=== PATIENT | male | born 1985 | race Caucasian/White ===

== ENCOUNTER 2018-06-08 10:24 | Inpatient (IN) | payer BC ==
[~2018-06-08] VITALS: Ht 182.9 cm; Wt 120.8 kg
[2018-06-08] VITALS (17 sets, daily range): BP systolic 86–144; BP diastolic 60–85
[2018-06-08] MEDS ORDERED: IV NORMAL SALINE 1000ML BAG 1,000 ML IV SCH (10:30)
[2018-06-08] MEDS ORDERED: ADENOSINE 6 MG/2 ML VIAL. IV ONE ×2 (10:31→11:00)
[2018-06-08] MEDS ORDERED: dilTIAZem IV PUSH 25 MG/5 ML VIAL ONE (10:32)
[2018-06-08 10:47] LABS: BASO # 0.1 x10^3/uL (0.0-0.2); BASO % 1 % (0-3); EOS # 0.1 x10^3/uL (0.0-0.7); EOS % 1 % (0-3); HEMATOCRIT 52.8 % (39.0-53.0); HEMOGLOBIN 17.2 g/dL (13.0-17.5); LYMPH # 3.2 x10^3/uL (1.0-4.8); LYMPH % 26 % (24-48); MEAN CORPUSCULAR HEMOGLOBIN 30 pg (25-35); MEAN CORPUSCULAR HGB CONC 33 g/dL (31-37); MEAN CORPUSCULAR VOLUME 91 fL (79-100); MONO # 0.7 x10^3/uL (0.0-1.1); MONO % 6 % (0-9); NEUT # 8.3 x10^3uL (1.8-7.7); NEUT % 67 % (31-73); PLATELET COUNT 221 x10^3/uL (140-400); RED BLOOD COUNT 5.82 x10^6/uL (4.30-5.70); WHITE BLOOD COUNT 12.4 x10^3/uL (4.0-11.0)
--- NOTE | 2018-06-08 10:56 | PHYS DOC ---
Past Medical History Past Medical History: Hypothyroid Additional Past Medical Histor: tachycardia Adult General HPI HPI Patient is a 32-year-old white male who presents to the emergency department for evaluation. He states that for the past several days, he has had waxing waning episodes of palpitations and he finally went to see his PCP today where he was found to have a rapid tachycardia, narrow complex. He was given 50 of metoprolol in the office on a baby aspirin, and sent via EMS to this facility. EMS administered adenosine twice, initially 6, then 12 mg, and they reported " no change". Upon arrival, the patient has no complaints, other than some mild fatigue and palpitations he denies shortness of breath. He did try vagal maneuvers in his doctor's office without success as well. He states he has been having these symptoms on and off for quite a while. He has been on Cardizem, for a "fast heart rate", although he states no formal arrhythmia has been diagnosed. He states he ran out of his Cardizem about a week ago. He has no chest pain. Review of Systems Review of Systems Constitutional: Denies fever or chills [] Eyes: Denies change in visual acuity, redness, or eye pain [] HENT: Denies nasal congestion or sore throat [] Respiratory: Denies cough or shortness of breath [] Cardiovascular: No additional information not addressed in HPI [] GI: Denies abdominal pain, nausea, vomiting, bloody stools or diarrhea [] : Denies dysuria or hematuria [] Musculoskeletal: Denies back pain or joint pain [] Integument: Denies rash or skin lesions [] Neurologic: Denies headache, focal weakness or sensory changes [] Endocrine: Denies polyuria or polydipsia [] All other systems were reviewed and found to be within normal limits, except as documented in this note. Current Medications Current Medications Current Medications Medications (Trade) Dose Ordered Sig/Yunior Start Time Stop Time Status Last Admin Dose Admin Adenosine (Adenocard) 12 mg 1X ONCE 06/08/18 11:00 06/08/18 11:03 DC 06/08/18 10:36 12 MG Diltiazem HCl (Cardizem Iv Push) 25 mg 1X ONCE 06/08/18 11:00 06/08/18 11:03 DC 06/08/18 10:39 25 MG Diltiazem HCl 125 mg/Dextrose 125 ml @ 5 mls/hr CONT PRN 06/08/18 11:00 06/08/18 11:21 10 MLS/HR Sodium Chloride 1,000 ml @ 1,000 mls/hr Q1H 06/08/18 10:30 06/08/18 11:29 DC 06/08/18 10:35 1,000 MLS/HR Allergies Allergies Allergies Coded Allergies Type Severity Reaction Last Updated Verified cefaclor Allergy Intermediate 06/08/18 Yes Physical Exam Physical Exam PHYSICAL EXAM: CONSTITUTIONAL: Well developed, well nourished HEAD: normocephalic, atraumatic EENT: PERRL, EOMI. Conjunctivae normal color, sclerae non-icteric; moist mucous membranes. NECK: Supple, non-tender; no meningismus. LUNGS: Lungs CTA, breathing even and unlabored. Normal air movement. HEART: Regular tachycardia, no murmur CHEST: No deformity; non-tender ABDOMEN: The abdomen is soft, and non-tender, no masses or bruits. EXTREM: Normal ROM; no deformity, no calf tenderness. Normal pulses palpable in all extremities. There is no pedal edema. SKIN: No rash; no diaphoresis NEURO: Alert; normal speech and cognition; CN's grossly intact; strength grossly intact without focal deficit. BACK: No CVA TTP. Current Patient Data Vital Signs Vital Signs Date Time Temp Pulse Resp B/P (MAP) Pulse Ox O2 Delivery O2 Flow Rate FiO2 06/08/18 11:58 110 124/69 (87) 95 Nasal Cannula 3.0 06/08/18 10:24 98.3 20 98.3 Lab Values Laboratory Tests Test 06/08/18 10:35 White Blood Count 12.4 x10^3/uL (4.0-11.0) H Red Blood Count 5.82 x10^6/uL (4.30-5.70) H Hemoglobin 17.2 g/dL (13.0-17.5) Hematocrit 52.8 % (39.0-53.0) Mean Corpuscular Volume 91 fL (79-100) Mean Corpuscular Hemoglobin 30 pg (25-35) Mean Corpuscular Hemoglobin Concent 33 g/dL (31-37) Red Cell Distribution Width 16.0 % (11.5-14.5) H Platelet Count 221 x10^3/uL (140-400) Neutrophils (%) (Auto) 67 % (31-73) Lymphocytes (%) (Auto) 26 % (24-48) Monocytes (%) (Auto) 6 % (0-9) Eosinophils (%) (Auto) 1 % (0-3) Basophils (%) (Auto) 1 % (0-3) Neutrophils # (Auto) 8.3 x10^3uL (1.8-7.7) H Lymphocytes # (Auto) 3.2 x10^3/uL (1.0-4.8) Monocytes # (Auto) 0.7 x10^3/uL (0.0-1.1) Eosinophils # (Auto) 0.1 x10^3/uL (0.0-0.7) Basophils # (Auto) 0.1 x10^3/uL (0.0-0.2) Sodium Level 141 mmol/L (136-145) Potassium Level 4.1 mmol/L (3.5-5.1) Chloride Level 103 mmol/L (98-107) Carbon Dioxide Level 23 mmol/L (21-32) Anion Gap 15 (6-14) H Blood Urea Nitrogen 16 mg/dL (8-26) Creatinine 1.1 mg/dL (0.7-1.3) Estimated GFR (Cockcroft-Gault) 78.1 BUN/Creatinine Ratio 15 (6-20) Glucose Level 103 mg/dL (70-99) H Calcium Level 9.0 mg/dL (8.5-10.1) Magnesium Level 2.3 mg/dL (1.8-2.4) Total Bilirubin 0.9 mg/dL (0.2-1.0) Aspartate Amino Transferase (AST) 31 U/L (15-37) Alanine Aminotransferase (ALT) 60 U/L (16-63) Alkaline Phosphatase 76 U/L (46-116) Troponin I Quantitative 0.025 ng/mL (0.000-0.055) Total Protein 7.0 g/dL (6.4-8.2) Albumin 4.1 g/dL (3.4-5.0) Albumin/Globulin Ratio 1.4 (1.0-1.7) Thyroid Stimulating Hormone (TSH) 9.228 uIU/mL (0.358-3.74) H Free Thyroxine 1.37 ng/dL (0.76-1.46) Laboratory Tests 06/08/18 10:35 Laboratory Tests 06/08/18 10:35 EKG EKG Initial EKG shows lots likely SVT, with a retrograde P-wave, at a rate of 197 beats for minute, normal axis, normal intervals, nonspecific ST/T changes. The patient was given adenosine, 12 mg, which did slow the patient's rate transiently, and it did appear to be P waves present at a rate of about 140 bpm , when the rhythm slowed, but the patient accelerated back to the underlying rhythm soon after. He was given Cardizem bolus, which then slowed his heart rate to about 99 bpm, where he apparently had an accessory P-wave, right after the QRS, redness and the possibility of either slow a flutter or a chill tachycardia is likely diagnoses.[] Repeat EKG, done at 1047, shows probable atrial flutter, at a ventricular rate of 90 beats for minute, normal axis, normal intervals, left ventricular hypertrophy pattern with nonspecific ST/T changes present. Radiology/Procedures Radiology/Procedures [] Course & Med Decision Making Course & Med Decision Making Pertinent Labs and Imaging studies reviewed. (See chart for details) []CRITICAL CARE TIME: 45 Minutes, excluding any procedures and care of other patients. The patient's condition has improved, on Cardizem drip. He appears to have atrial tachycardia, I spoke with cardiology, and the patient will be admitted to the hospitalist service. Dragon Disclaimer Dragon Disclaimer This electronic medical record was generated, in whole or in part, using a voice recognition dictation system. Departure Departure Impression: Primary Impression: Atrial tachycardia Disposition: ADMITTED INPATIENT Admitting Physician: Sam Plummer Condition: STABLE CALEB LEONARDO MD Jun 08, 2018 10:56
[2018-06-08] MEDS ORDERED: dilTIAZem IV PUSH 25 MG/5 ML VIAL IVP ONE (11:00)
[2018-06-08 11:06] LABS: CREATININE 1.1 mg/dL (0.7-1.3); GFR 78.1; POTASSIUM 4.1 mmol/L (3.5-5.1)
[2018-06-08 11:13] LABS: ALBUMIN 4.1 g/dL (3.4-5.0); ALBUMIN/GLOBULIN RATIO 1.4 (1.0-1.7); MAGNESIUM 2.3 mg/dL (1.8-2.4); TOTAL BILIRUBIN 0.9 mg/dL (0.2-1.0)
[2018-06-08 11:20] LABS: FREE T4 1.37 ng/dL (0.76-1.46); THYROID STIM HORMONE (TSH) 9.228 uIU/mL (0.358-3.74)
[2018-06-08] MEDS: dilTIAZem INJ 125 MG in IV DEXTROSE 5% 100ML 100 ML IV PRN (11:21)
--- NOTE | 2018-06-08 12:13 | PDOC2 ---
MARTA WILDER SALES SERVICE PROFESSIONAL 06/08/18 1213: CARDIAC CONSULT DATE OF CONSULT Date of Consult DATE: 06/08/18 TIME: 12:10 REASON FOR CONSULT Reason for Consult: AT REFERRING PHYSICIAN Referring Physician: Sarath SOURCE Source: Chart review, Patient HISTORY OF PRESENT ILLNESS HISTORY OF PRESENT ILLNESS This is a pleasant 32 yo male admitted for complains of fast HR. Reports that 1.5 yrs ago he was noted with irregular HR as well as high BP. He was then placed on cardizem and was told that he needs to see a marketing technology specialist but decided not to go. He then ran out of cardizem about a week and half ago. Last weekend he started having watery diarrhea having this about 3x a day. Tuesday he started feeling palpiations and was a little SOA. No nausea or vomiting. His symptoms continued intermittently. He then went to his PCP and noted his HR was fast and vagal maneuver was done and ineffective as well as metoprolol. In ED he was given x2 of adenosis as his HR was noted in the 190s and finally the cardizem worked. No recent VTE, syncope, or any known history of definitive arrhythmias nor childhood congenital heart disease. No falls or any recent injury. PAST MEDICAL HISTORY Cardiovascular: HTN, Other (palpitations) Pulmonary: Asthma CENTRAL NERVOUS SYSTEM: Other (No pertinent history) GI: No pertinent hx Heme/Onc: No pertinent hx Psych: No pertinent hx Musculoskeletal: Other (None) ENT: Allergic Rhinitis Renal/: No pertinent hx Endocrine: Hypothyroidism, Other (hypglycemia) Dermatology: No pertinent hx PAST SURGICAL HISTORY Past Surgical History: No pertinent history FAMILY HISTORY Family History no pertinent history SOCIAL HISTORY Smoke: <1 pack per day ALCOHOL: occassional Drugs: None Lives: Alone CURRENT MEDICATIONS CURRENT MEDICATIONS Current Medications Medications (Trade) Dose Ordered Sig/Yunior Route PRN Reason Start Time Stop Time Status Last Admin Dose Admin Adenosine (Adenocard) 12 mg 1X ONCE IV 06/08/18 11:00 06/08/18 11:03 DC 06/08/18 10:36 Sodium Chloride 1,000 ml @ 1,000 mls/hr Q1H IV 06/08/18 10:30 06/08/18 11:29 DC 06/08/18 10:35 Diltiazem HCl (Cardizem Iv Push) 25 mg 1X ONCE IVP 06/08/18 11:00 06/08/18 11:03 DC 06/08/18 10:39 Diltiazem HCl 125 mg/Dextrose 125 ml @ 5 mls/hr CONT PRN IV SEE I/O RECORD 06/08/18 11:00 06/08/18 11:21 ALLERGIES ALLERGIES: Coded Allergies: cefaclor (Verified Allergy, Intermediate, 06/08/18) ROS Review of System 14 point ROS evaluated with pertinent positives noted per HPI PHYSICAL EXAM General: Alert, Oriented X3, Cooperative, No acute distress HEENT: Atraumatic, Mucous membr. moist/pink Lungs: Clear to auscultation, Normal air movement Heart: Regular rate (atrial tach), Normal S1, Normal S2, No murmurs Abdomen: Soft, No tenderness Extremities: No cyanosis, No edema Skin: No breakdown, No significant lesion Neuro: Normal speech, Sensation intact Psych/Mental Status: Mental status NL, Mood NL MUSCULOSKELETAL: Full range of motion without pain VITALS VITALS Vital Signs Date Time Temp Pulse Resp B/P (MAP) Pulse Ox O2 Delivery O2 Flow Rate FiO2 06/08/18 10:39 202 136/81 06/08/18 10:24 98.3 20 98 Nasal Cannula 3.0 98.3 LABS Lab: Laboratory Tests Test 06/08/18 10:35 White Blood Count 12.4 x10^3/uL (4.0-11.0) Red Blood Count 5.82 x10^6/uL (4.30-5.70) Hemoglobin 17.2 g/dL (13.0-17.5) Hematocrit 52.8 % (39.0-53.0) Mean Corpuscular Volume 91 fL (79-100) Mean Corpuscular Hemoglobin 30 pg (25-35) Mean Corpuscular Hemoglobin Concent 33 g/dL (31-37) Red Cell Distribution Width 16.0 % (11.5-14.5) Platelet Count 221 x10^3/uL (140-400) Neutrophils (%) (Auto) 67 % (31-73) Lymphocytes (%) (Auto) 26 % (24-48) Monocytes (%) (Auto) 6 % (0-9) Eosinophils (%) (Auto) 1 % (0-3) Basophils (%) (Auto) 1 % (0-3) Neutrophils # (Auto) 8.3 x10^3uL (1.8-7.7) Lymphocytes # (Auto) 3.2 x10^3/uL (1.0-4.8) Monocytes # (Auto) 0.7 x10^3/uL (0.0-1.1) Eosinophils # (Auto) 0.1 x10^3/uL (0.0-0.7) Basophils # (Auto) 0.1 x10^3/uL (0.0-0.2) Sodium Level 141 mmol/L (136-145) Potassium Level 4.1 mmol/L (3.5-5.1) Chloride Level 103 mmol/L (98-107) Carbon Dioxide Level 23 mmol/L (21-32) Anion Gap 15 (6-14) Blood Urea Nitrogen 16 mg/dL (8-26) Creatinine 1.1 mg/dL (0.7-1.3) Estimated GFR (Cockcroft-Gault) 78.1 BUN/Creatinine Ratio 15 (6-20) Glucose Level 103 mg/dL (70-99) Calcium Level 9.0 mg/dL (8.5-10.1) Magnesium Level 2.3 mg/dL (1.8-2.4) Total Bilirubin 0.9 mg/dL (0.2-1.0) Aspartate Amino Transf (AST/SGOT) 31 U/L (15-37) Alanine Aminotransferase (ALT/SGPT) 60 U/L (16-63) Alkaline Phosphatase 76 U/L (46-116) Troponin I Quantitative 0.025 ng/mL (0.000-0.055) Total Protein 7.0 g/dL (6.4-8.2) Albumin 4.1 g/dL (3.4-5.0) Albumin/Globulin Ratio 1.4 (1.0-1.7) Thyroid Stimulating Hormone (TSH) 9.228 uIU/mL (0.358-3.74) Free Thyroxine 1.37 ng/dL (0.76-1.46) ASSESSMENT/PLAN ASSESSMENT/PLAN 1. Palpitations: atrial tach. #3,4 and 5 likely contributed to suppressed arrhythmia 2. Obesity 3. Hypothyroidism: TSH 9. Due to timing. Does not take med in empty stomach 4. diarrhea: per PCP 5. Noncompliance: missed cardizem dose for 1.5 weeks 6. Tobaccoism Recommendations TTE continue cardizem drip and will transition to PO EP referral Smoking cessation SKYLER LESTER MD 06/09/18 0917: CARDIAC CONSULT ASSESSMENT/PLAN ASSESSMENT/PLAN Patient seen and examined 06/08/18. Agree with ROUNDING MACHINE OPERATOR's assessment and plan. Patient presented with SVT that did not respond to adenosine Presently with atrial tachycardia after starting Cardizem drip Check 2-D echo to assess LV systolic function Plan for initiating anticoagulation prior to discharge Outpatient referral to EP service for possible ablation therapy Thank you for your consultation MARTA WILDER APRN Jun 08, 2018 12:13 SKYLER LESTER MD Jun 09, 2018 09:17
--- NOTE | 2018-06-08 12:36 | EKG ---
[facility] [address] [place] [address] Test Date: 2018-06-08 Test Time: 10:46:58 Pat Name: KRISTY RECINOS Department: Room: Gender: M It Architecture Analyst: : 1985 Requested By: CALEB LEONARDO Order Number: [id number] Reading MD: Law Dawson MD Measurements Intervals [place] Rate: 99 P: [place]: QRS: 1 QRSD: 112 T: 171 QT: 352 QTc: 451 Interpretive Statements SR IVCD NON-SPECIFIC J POINT ELEVATION, LATERAL ST SEGMENT DEPRESSION Electronically Signed On 06-15-2018 13:46:47 CDT by Law Dawson MD
--- NOTE | 2018-06-08 12:36 | EKG ---
[facility] [address] [place] [address] Test Date: 2018-06-08 Test Time: 10:31:59 Pat Name: KRISTY RECINOS Department: Room: Gender: M Sales Executive Insurance: : 1985 Requested By: CALEB LEONARDO Order Number: [id number] Reading MD: Law Dawson MD Measurements Intervals [place] Rate: 197 P: [place]: QRS: 2 QRSD: 106 T: 124 QT: 272 QTc: 495 Interpretive Statements SUPRAVENTRICULAR TACHYCARDIA Electronically Signed On 06-15-2018 13:46:16 CDT by Law Dawson MD
--- NOTE | 2018-06-08 13:06 | PDOC1 ---
History and Physical Date of Admission Date of Admission DATE: 06/08/18 TIME: 13:06 Identification/Chief Complaint Chief Complaint SEEN IN ER PCP today where he was found to have a rapid tachycardia, narrow complex. He was given 50 of metoprolol in the office on a baby aspirin, and sent via EMS HERE EMS administered adenosine twice, initially 6, then 12 mg, HAD BEEN TAKING CARDIZEM, was recently stopped, denies excess caffeine intake/ etoh/ tobacco tsh elevated with nl t4 free Past Medical History Cardiovascular: HTN Hepatobiliary: No pertinent hx Psych: No pertinent hx Infectious disease: No pertinent hx Renal/: No pertinent hx Endocrine: No pertinent hx Dermatology: No pertinent hx Family History Family History: Hypertension Social History Smoke: No ALCOHOL: rare Drugs: None Current Problem List Problem List Problems Medical Problems: (1) Atrial tachycardia Status: Acute Current Medications Current Medications Current Medications Adenosine (Adenocard) 6 mg STK-MED ONCE IV ; Start 06/08/18 at 10:31; Stop 06/08 at 10:32; Status DC Diltiazem HCl (Cardizem Iv Push) 25 mg STK-MED ONCE .ROUTE ; Start 06/08/18 at 10:32; Stop 06/08/18 at 10:33; Status DC Adenosine (Adenocard) 12 mg 1X ONCE IV Last administered on 06/08/18at 10:36; Start 06/08/18 at 11:00; Stop 06/08/18 at 11:03; Status DC Sodium Chloride 1,000 ml @ 1,000 mls/hr Q1H IV Last administered on 06/08/18at 10:35; Start 06/08/18 at 10:30; Stop 06/08/18 at 11:29; Status DC Diltiazem HCl (Cardizem Iv Push) 25 mg 1X ONCE IVP Last administered on at 10:39; Start 06/08/18 at 11:00; Stop 06/08/18 at 11:03; Status DC Diltiazem HCl 125 mg/Dextrose 125 ml @ 5 mls/hr CONT PRN IV SEE I/O RECORD Last administered on 06/08/18at 11:21; Start 06/08/18 at 11:00 Allergies Allergies: Coded Allergies: cefaclor (Verified Allergy, Intermediate, 06/08/18) ROS Review of System Review of Systems Review of Systems Constitutional: Denies fever or chills [] Eyes: Denies change in visual acuity, redness, or eye pain [] HENT: Denies nasal congestion or sore throat [] Respiratory: Denies cough or shortness of breath [] Cardiovascular: No additional information not addressed in HPI [] GI: Denies abdominal pain, nausea, vomiting, bloody stools or diarrhea [] : Denies dysuria or hematuria [] Musculoskeletal: Denies back pain or joint pain [] Integument: Denies rash or skin lesions [] Neurologic: Denies headache, focal weakness or sensory changes [] Endocrine: Denies polyuria or polydipsia [] 14 pt systems were reviewed and found to be within normal limits, except as documented . General: No: Chills, Night Sweats, Fatigue, Malaise, Appetite, Other PSYCHOLOGICAL ROS: No: Anxiety, Behavioral Disorder, Concentration difficultie , Decreased libido, Depression, Disorientation, Hallucinations, Hostility, Irritablity, Memory difficulties, Mood Swings, Obsessive thoughts, Physical abuse, Sexual abuse, Sleep disturbances, Suicidal ideation, Other Eyes: No Blurry vision, No Decreased vision, No Double vision, No Dry eyes, No Excessive tearing, No Eye Pain, No Itchy Eyes, No Loss of vision, No Photophobia , No Scotomata, No Uses contacts, No Uses glasses, No Other ALLERGY AND IMMUNOLOGY: No: Hives, Insect Bite Sensitivity, Itchy/Watery Eyes, Nasal Congestion, Post Nasal Drip, Seasonal Allergies, Other Hematological and Lymphatic: No: Bleeding Problems, Blood Clots, Blood Transfusions, Brusing, Night Sweats, Pallor, Swollen Lymph Nodes, Other Respiratory: YES: SOB with excertion Cardiovascular: yes Palpitations Genitourinary: No Dysuria, No Frequency, No Incontinence, No Hematuria, No Retention, No Discharge, No Urgency, No Pain, No Flank Pain, No Other, No , No , No , No , No , No , No Musculoskeletal: No Gait Disturbance, No Joint Pain, No Joint Stiffness, No Joint Swelling, No Muscle Pain, No Muscular Weakness, No Pain In:, No Swelling In:, No Other Neurological: No Behavorial Changes, No Bowel/Bladder ControlChng, No Confusion , No Dizziness, No Gait Disturbance, No Headaches, No Impaired Coord/balance, No Memory Loss, No Numbness/Tingling, No Seizures, No Speech Problems, No Tremors, No Visual Changes, No Weakness, No Other Physical Exam Physical Exam Physical Exam Physical Exam PHYSICAL EXAM: CONSTITUTIONAL: Well developed, well nourished, obese HEAD: normocephalic, atraumatic EENT: PERRL, EOMI. Conjunctivae normal color, sclerae non-icteric; moist mucous membranes. NECK: Supple, non-tender; no meningismus. LUNGS: Lungs CTA, breathing even and unlabored. Normal air movement. HEART: Regular tachycardia, no murmur CHEST: No deformity; non-tender ABDOMEN: The abdomen is soft, and non-tender, no masses or bruits. EXTREM: Normal ROM; no deformity, no calf tenderness. Normal pulses palpable in all extremities. There is no pedal edema. SKIN: No rash; no diaphoresis NEURO: Alert; normal speech and cognition; CN's grossly intact; strength grossly intact without focal deficit. General: Alert, Oriented X3, Cooperative HEENT: Atraumatic, PERRLA Lungs: Clear to auscultation Heart: RRR, no murmurs Abdomen: Normal bowel sounds, Soft, Other (obese) Extremities: No cyanosis Skin: No rashes Neuro: Normal speech, Normal tone, Sensation intact, Cranial nerves 3-12 NL Psych/Mental Status: Mental status NL, Mood NL Vitals Vitals Vital Signs Date Time Temp Pulse Resp B/P (MAP) Pulse Ox O2 Delivery O2 Flow Rate FiO2 06/08/18 11:58 110 124/69 (87) 95 Nasal Cannula 3.0 06/08/18 10:24 98.3 20 98.3 Labs Labs Laboratory Tests Test 06/08/18 10:35 White Blood Count 12.4 x10^3/uL (4.0-11.0) Red Blood Count 5.82 x10^6/uL (4.30-5.70) Hemoglobin 17.2 g/dL (13.0-17.5) Hematocrit 52.8 % (39.0-53.0) Mean Corpuscular Volume 91 fL (79-100) Mean Corpuscular Hemoglobin 30 pg (25-35) Mean Corpuscular Hemoglobin Concent 33 g/dL (31-37) Red Cell Distribution Width 16.0 % (11.5-14.5) Platelet Count 221 x10^3/uL (140-400) Neutrophils (%) (Auto) 67 % (31-73) Lymphocytes (%) (Auto) 26 % (24-48) Monocytes (%) (Auto) 6 % (0-9) Eosinophils (%) (Auto) 1 % (0-3) Basophils (%) (Auto) 1 % (0-3) Neutrophils # (Auto) 8.3 x10^3uL (1.8-7.7) Lymphocytes # (Auto) 3.2 x10^3/uL (1.0-4.8) Monocytes # (Auto) 0.7 x10^3/uL (0.0-1.1) Eosinophils # (Auto) 0.1 x10^3/uL (0.0-0.7) Basophils # (Auto) 0.1 x10^3/uL (0.0-0.2) Sodium Level 141 mmol/L (136-145) Potassium Level 4.1 mmol/L (3.5-5.1) Chloride Level 103 mmol/L (98-107) Carbon Dioxide Level 23 mmol/L (21-32) Anion Gap 15 (6-14) Blood Urea Nitrogen 16 mg/dL (8-26) Creatinine 1.1 mg/dL (0.7-1.3) Estimated GFR (Cockcroft-Gault) 78.1 BUN/Creatinine Ratio 15 (6-20) Glucose Level 103 mg/dL (70-99) Calcium Level 9.0 mg/dL (8.5-10.1) Magnesium Level 2.3 mg/dL (1.8-2.4) Total Bilirubin 0.9 mg/dL (0.2-1.0) Aspartate Amino Transf (AST/SGOT) 31 U/L (15-37) Alanine Aminotransferase (ALT/SGPT) 60 U/L (16-63) Alkaline Phosphatase 76 U/L (46-116) Troponin I Quantitative 0.025 ng/mL (0.000-0.055) Total Protein 7.0 g/dL (6.4-8.2) Albumin 4.1 g/dL (3.4-5.0) Albumin/Globulin Ratio 1.4 (1.0-1.7) Thyroid Stimulating Hormone (TSH) 9.228 uIU/mL (0.358-3.74) Free Thyroxine 1.37 ng/dL (0.76-1.46) Laboratory Tests Test 06/08/18 10:35 White Blood Count 12.4 x10^3/uL (4.0-11.0) Red Blood Count 5.82 x10^6/uL (4.30-5.70) Hemoglobin 17.2 g/dL (13.0-17.5) Hematocrit 52.8 % (39.0-53.0) Mean Corpuscular Volume 91 fL (79-100) Mean Corpuscular Hemoglobin 30 pg (25-35) Mean Corpuscular Hemoglobin Concent 33 g/dL (31-37) Red Cell Distribution Width 16.0 % (11.5-14.5) Platelet Count 221 x10^3/uL (140-400) Neutrophils (%) (Auto) 67 % (31-73) Lymphocytes (%) (Auto) 26 % (24-48) Monocytes (%) (Auto) 6 % (0-9) Eosinophils (%) (Auto) 1 % (0-3) Basophils (%) (Auto) 1 % (0-3) Neutrophils # (Auto) 8.3 x10^3uL (1.8-7.7) Lymphocytes # (Auto) 3.2 x10^3/uL (1.0-4.8) Monocytes # (Auto) 0.7 x10^3/uL (0.0-1.1) Eosinophils # (Auto) 0.1 x10^3/uL (0.0-0.7) Basophils # (Auto) 0.1 x10^3/uL (0.0-0.2) Sodium Level 141 mmol/L (136-145) Potassium Level 4.1 mmol/L (3.5-5.1) Chloride Level 103 mmol/L (98-107) Carbon Dioxide Level 23 mmol/L (21-32) Anion Gap 15 (6-14) Blood Urea Nitrogen 16 mg/dL (8-26) Creatinine 1.1 mg/dL (0.7-1.3) Estimated GFR (Cockcroft-Gault) 78.1 BUN/Creatinine Ratio 15 (6-20) Glucose Level 103 mg/dL (70-99) Calcium Level 9.0 mg/dL (8.5-10.1) Magnesium Level 2.3 mg/dL (1.8-2.4) Total Bilirubin 0.9 mg/dL (0.2-1.0) Aspartate Amino Transf (AST/SGOT) 31 U/L (15-37) Alanine Aminotransferase (ALT/SGPT) 60 U/L (16-63) Alkaline Phosphatase 76 U/L (46-116) Troponin I Quantitative 0.025 ng/mL (0.000-0.055) Total Protein 7.0 g/dL (6.4-8.2) Albumin 4.1 g/dL (3.4-5.0) Albumin/Globulin Ratio 1.4 (1.0-1.7) Thyroid Stimulating Hormone (TSH) 9.228 uIU/mL (0.358-3.74) Free Thyroxine 1.37 ng/dL (0.76-1.46) VTE Prophylaxis Ordered VTE Prophylaxis Devices: Yes VTE Pharmacological Prophylaxi: Yes Assessment/Plan Assessment/Plan impression 1. Parxysomal supraventricular tachycardia 2. morbid obesity 3. hx htn 4. possible GILBERT 5. elevated tsh with nl free T4 MAY REFLECT EARLY SUBCLINICAL HYPOTHYROID STATE PLAN ADMIT CVC ECHO T4 IV CARDIZEM CARDIOLOGY CONSULT MAY BENEFIT FROM POLYSOMONOGRAPHY OUTPAT avoid ceffeine THYROID SONO, EVAL OUTPT MAY NEED EP study ODESSA ESTRELLA MD Jun 08, 2018 13:06
[2018-06-08] MEDS ORDERED: FLUT16SP NS (17:12)
[2018-06-08] MEDS ORDERED: LEVO125T5 PO (17:12)
[2018-06-08] MEDS ORDERED: LORA10TA3 PO (17:12)
[2018-06-08] MEDS ORDERED: DILT240C82 PO (17:12)
[2018-06-08] MEDS: ZOLPIDEM 5 MG TABLET. PO PRN ×2 (19:49→21:39)
[2018-06-09] VITALS (17 sets, daily range): BP systolic 105–168; BP diastolic 55–99
--- NOTE | 2018-06-09 00:09 | NUR ---
Pt's resting HR at 2330 has been high 70's for over one hour with cardizem running at 2.5mg/hr. When the patient called in need of a BM, pt was allowed to ambulate to bathroom with his IV pole and with assistance, his HR remained mid 80's during this activity.
[2018-06-09] MEDS: dilTIAZem INJ 125 MG in IV DEXTROSE 5% 100ML 100 ML IV PRN (03:04)
[2018-06-09] MEDS: LEVOTHYROXINE 125 MCG TABLET PO SCH (06:14)
--- NOTE | 2018-06-09 07:46 | CARD ---
MR#: [id number] Date of Study: 06/08/2018 Ordering Physician: MARTA WILDER, Referring Physician: ODESSA ESTRELLA, Tech: Aicha Keenan APPROVED REPORT EXAM: Two-dimensional and M-mode echocardiogram with Doppler and color Doppler. Other Information Quality : GoodHR: 90bpm INDICATION Tachycardia 2D DIMENSIONS RVDd4.2 (2.9-3.5cm)Left Atrium(2D)4.0 (1.6-4.0cm) IVSd1.4 (0.7-1.1cm)Aortic Root(2D)2.6 (2.0-3.7cm) LVDd6.6 (3.9-5.9cm)LVOT Diameter2.3 (1.8-2.4cm) PWd1.2 (0.7-1.1cm)LVDs6.0 (2.5-4.0cm) FS (%) 8.7 %SV41.4 ml LVEF(%)18.7 (>50%) Aortic Valve AoV Peak Marcio.55.4cm/sAoV VTI12.7cm AO Peak GR.1.2mmHgLVOT VTI 5.16cm AO Mean GR.2mmHg Mitral Valve MV E Vuqaqbke81.4cm/sMV E Peak Gr.50mmHg MV DECEL [id number] A Xccrfjnc55.6cm/s E/A Ratio1.3 Tricuspid Valve TR P. Krmzauxd196xp/sRAP [id number] TR Peak Gr.12bmVbTFHV79maPk LEFT VENTRICLE The Left Ventricle is mildly dilated. There is mild to moderate concentric left ventricular hypertrop hy. The left ventricular systolic function is severely impaired. The Ejection Fraction is 10-15%. The re is global hypokinesis of the left ventricle. RIGHT VENTRICLE The right ventricle is mildly dilated. Systolic function is mildly reduced. ATRIA The left atrium is mildly dilated. The right atrium size is normal. The interatrial septum is intact with no evidence for an atrial septal defect or patent foramen ovale as noted on 2-D or Doppler imagi ng. AORTIC VALVE The aortic valve is normal in structure and function. Doppler and Color Flow revealed no significant aortic regurgitation. There is no significant aortic valvular stenosis. MITRAL VALVE The mitral valve is normal in structure and function. There is no evidence of mitral valve prolapse. There is no mitral valve stenosis. Doppler and Color-flow revealed trace mitral regurgitation. TRICUSPID VALVE The tricuspid valve is normal in structure and function. Doppler and Color Flow revealed trace tricus pid regurgitation with an estimated PAP of 24 mmHg. There is no tricuspid valve stenosis. PULMONIC VALVE The pulmonary valve is normal in structure and function. Doppler and Color Flow revealed trace pulmon ic valvular regurgitation. GREAT VESSELS The aortic root is normal in size. The IVC is normal in size and collapses >50% with inspiration. PERICARDIAL EFFUSION There is moderate left pleural effusion. There is no evidence of significant pericardial effusion. Critical Notification Physician Notified Date: 06/08/2018 Time: 19:46 Critical Value: Yes <Conclusion> The left ventricular systolic function is severely impaired. The Ejection Fraction is 10-15%. Trace mitral regurgitation. Trace tricuspid regurgitation with an estimated PAP of 24 mmHg. There is no evidence of significant pericardial effusion. Signed by : Daniel Larson, Electronically Approved : 06/09/2018 07:46:13
[2018-06-09] MEDS: CETIRIZINE HCL 10 MG TABLET. PO SCH (09:00)
[2018-06-09] MEDS: FLUTICASONE 50MCG/NASAL SPRAY 16GM BOTTLE. NS SCH (09:00)
--- NOTE | 2018-06-09 10:22 | PDOC ---
PROGRESS NOTES History of Present Illness History of Present Illness Assessment/Plan Assessment/Plan impression 1. Parxysomal supraventricular tachycardia 2. morbid obesity 3. hx htn 4. possible GILBERT 5. elevated tsh with nl free T4 MAY REFLECT EARLY SUBCLINICAL HYPOTHYROID STATE 6. elevated d-dimer R/O PE 06/09 PT BECAME MORE soa/ FLUSHED THIS am D/W HOPE SALEH , d-dimer drawn, high will do stat CT PE PROTOCOL, START HEPARIN DRIP PENDING RESULT STATES he has not felt well with fatigue since this Tuesday The left ventricular systolic function is severely impaired. The Ejection Fraction is 10-15%. Trace mitral regurgitation. Trace tricuspid regurgitation with an estimated PAP of 24 mmHg. There is no evidence of significant pericardial effusion. Signed by : Daniel Larson, Electronically Approved : 06/09/2018 07:46:13 PLAN monitor CVC ECHO T4 IV CARDIZEM CARDIOLOGY following MAY BENEFIT FROM POLYSOMONOGRAPHY OUT-PAT avoid ceffeine THYROID SONO, EVAL OUTPT PE PROTOCOL STAT 06/09, HEPARIN PROTOCOL MAY NEED EP study COMPLEX MEDICAL DECISION MAKING PER MY CHART REVIEW Vitals Vitals Vital Signs Date Time Temp Pulse Resp B/P (MAP) Pulse Ox O2 Delivery O2 Flow Rate FiO2 06/09/18 08:00 Nasal Cannula 2.0 06/09/18 07:05 97.6 82 18 115/78 (90) 97 97.6 Physical Exam General: Alert, Oriented X3, Cooperative, No acute distress Heart: Regular rate (atrial tach), Normal S1, Normal S2, No murmurs Abdomen: Soft, No tenderness Extremities: No cyanosis, No edema Skin: No breakdown, No significant lesion Labs LABS Laboratory Tests Test 06/08/18 10:35 06/08/18 19:30 06/08/18 20:41 06/09/18 03:00 White Blood Count 12.4 x10^3/uL (4.0-11.0) Red Blood Count 5.82 x10^6/uL (4.30-5.70) Hemoglobin 17.2 g/dL (13.0-17.5) Hematocrit 52.8 % (39.0-53.0) Mean Corpuscular Volume 91 fL (79-100) Mean Corpuscular Hemoglobin 30 pg (25-35) Mean Corpuscular Hemoglobin Concent 33 g/dL (31-37) Red Cell Distribution Width 16.0 % (11.5-14.5) Platelet Count 221 x10^3/uL (140-400) Neutrophils (%) (Auto) 67 % (31-73) Lymphocytes (%) (Auto) 26 % (24-48) Monocytes (%) (Auto) 6 % (0-9) Eosinophils (%) (Auto) 1 % (0-3) Basophils (%) (Auto) 1 % (0-3) Neutrophils # (Auto) 8.3 x10^3uL (1.8-7.7) Lymphocytes # (Auto) 3.2 x10^3/uL (1.0-4.8) Monocytes # (Auto) 0.7 x10^3/uL (0.0-1.1) Eosinophils # (Auto) 0.1 x10^3/uL (0.0-0.7) Basophils # (Auto) 0.1 x10^3/uL (0.0-0.2) Sodium Level 141 mmol/L (136-145) Potassium Level 4.1 mmol/L (3.5-5.1) Chloride Level 103 mmol/L (98-107) Carbon Dioxide Level 23 mmol/L (21-32) Anion Gap 15 (6-14) Blood Urea Nitrogen 16 mg/dL (8-26) Creatinine 1.1 mg/dL (0.7-1.3) Estimated GFR (Cockcroft-Gault) 78.1 BUN/Creatinine Ratio 15 (6-20) Glucose Level 103 mg/dL (70-99) Calcium Level 9.0 mg/dL (8.5-10.1) Magnesium Level 2.3 mg/dL (1.8-2.4) Total Bilirubin 0.9 mg/dL (0.2-1.0) Aspartate Amino Transf (AST/SGOT) 31 U/L (15-37) Alanine Aminotransferase (ALT/SGPT) 60 U/L (16-63) Alkaline Phosphatase 76 U/L (46-116) Troponin I Quantitative 0.025 ng/mL (0.000-0.055) 0.038 ng/mL (0.000-0.055) 0.039 ng/mL (0.000-0.055) Total Protein 7.0 g/dL (6.4-8.2) Albumin 4.1 g/dL (3.4-5.0) Albumin/Globulin Ratio 1.4 (1.0-1.7) Thyroid Stimulating Hormone (TSH) 9.228 uIU/mL (0.358-3.74) Free Thyroxine 1.37 ng/dL (0.76-1.46) D-Dimer (Sherly) 2.98 ug/mlFEU (0.00-0.50) Glucose (Fingerstick) 147 mg/dL (70-99) Assessment and Plan Assessmemt and Plan Problems Medical Problems: (1) Atrial tachycardia Status: Acute Comment Review of Relevant I have reviewed the following items [place] (where applicable) has been applied. Labs Laboratory Tests Test 06/08/18 10:35 06/08/18 19:30 06/08/18 20:41 06/09/18 03:00 White Blood Count 12.4 x10^3/uL (4.0-11.0) Red Blood Count 5.82 x10^6/uL (4.30-5.70) Hemoglobin 17.2 g/dL (13.0-17.5) Hematocrit 52.8 % (39.0-53.0) Mean Corpuscular Volume 91 fL (79-100) Mean Corpuscular Hemoglobin 30 pg (25-35) Mean Corpuscular Hemoglobin Concent 33 g/dL (31-37) Red Cell Distribution Width 16.0 % (11.5-14.5) Platelet Count 221 x10^3/uL (140-400) Neutrophils (%) (Auto) 67 % (31-73) Lymphocytes (%) (Auto) 26 % (24-48) Monocytes (%) (Auto) 6 % (0-9) Eosinophils (%) (Auto) 1 % (0-3) Basophils (%) (Auto) 1 % (0-3) Neutrophils # (Auto) 8.3 x10^3uL (1.8-7.7) Lymphocytes # (Auto) 3.2 x10^3/uL (1.0-4.8) Monocytes # (Auto) 0.7 x10^3/uL (0.0-1.1) Eosinophils # (Auto) 0.1 x10^3/uL (0.0-0.7) Basophils # (Auto) 0.1 x10^3/uL (0.0-0.2) Sodium Level 141 mmol/L (136-145) Potassium Level 4.1 mmol/L (3.5-5.1) Chloride Level 103 mmol/L (98-107) Carbon Dioxide Level 23 mmol/L (21-32) Anion Gap 15 (6-14) Blood Urea Nitrogen 16 mg/dL (8-26) Creatinine 1.1 mg/dL (0.7-1.3) Estimated GFR (Cockcroft-Gault) 78.1 BUN/Creatinine Ratio 15 (6-20) Glucose Level 103 mg/dL (70-99) Calcium Level 9.0 mg/dL (8.5-10.1) Magnesium Level 2.3 mg/dL (1.8-2.4) Total Bilirubin 0.9 mg/dL (0.2-1.0) Aspartate Amino Transf (AST/SGOT) 31 U/L (15-37) Alanine Aminotransferase (ALT/SGPT) 60 U/L (16-63) Alkaline Phosphatase 76 U/L (46-116) Troponin I Quantitative 0.025 ng/mL (0.000-0.055) 0.038 ng/mL (0.000-0.055) 0.039 ng/mL (0.000-0.055) Total Protein 7.0 g/dL (6.4-8.2) Albumin 4.1 g/dL (3.4-5.0) Albumin/Globulin Ratio 1.4 (1.0-1.7) Thyroid Stimulating Hormone (TSH) 9.228 uIU/mL (0.358-3.74) Free Thyroxine 1.37 ng/dL (0.76-1.46) D-Dimer (Sherly) 2.98 ug/mlFEU (0.00-0.50) Glucose (Fingerstick) 147 mg/dL (70-99) Laboratory Tests Test 06/08/18 10:35 06/08/18 19:30 06/08/18 20:41 06/09/18 03:00 White Blood Count 12.4 x10^3/uL (4.0-11.0) Red Blood Count 5.82 x10^6/uL (4.30-5.70) Hemoglobin 17.2 g/dL (13.0-17.5) Hematocrit 52.8 % (39.0-53.0) Mean Corpuscular Volume 91 fL (79-100) Mean Corpuscular Hemoglobin 30 pg (25-35) Mean Corpuscular Hemoglobin Concent 33 g/dL (31-37) Red Cell Distribution Width 16.0 % (11.5-14.5) Platelet Count 221 x10^3/uL (140-400) Neutrophils (%) (Auto) 67 % (31-73) Lymphocytes (%) (Auto) 26 % (24-48) Monocytes (%) (Auto) 6 % (0-9) Eosinophils (%) (Auto) 1 % (0-3) Basophils (%) (Auto) 1 % (0-3) Neutrophils # (Auto) 8.3 x10^3uL (1.8-7.7) Lymphocytes # (Auto) 3.2 x10^3/uL (1.0-4.8) Monocytes # (Auto) 0.7 x10^3/uL (0.0-1.1) Eosinophils # (Auto) 0.1 x10^3/uL (0.0-0.7) Basophils # (Auto) 0.1 x10^3/uL (0.0-0.2) Sodium Level 141 mmol/L (136-145) Potassium Level 4.1 mmol/L (3.5-5.1) Chloride Level 103 mmol/L (98-107) Carbon Dioxide Level 23 mmol/L (21-32) Anion Gap 15 (6-14) Blood Urea Nitrogen 16 mg/dL (8-26) Creatinine 1.1 mg/dL (0.7-1.3) Estimated GFR (Cockcroft-Gault) 78.1 BUN/Creatinine Ratio 15 (6-20) Glucose Level 103 mg/dL (70-99) Calcium Level 9.0 mg/dL (8.5-10.1) Magnesium Level 2.3 mg/dL (1.8-2.4) Total Bilirubin 0.9 mg/dL (0.2-1.0) Aspartate Amino Transf (AST/SGOT) 31 U/L (15-37) Alanine Aminotransferase (ALT/SGPT) 60 U/L (16-63) Alkaline Phosphatase 76 U/L (46-116) Troponin I Quantitative 0.025 ng/mL (0.000-0.055) 0.038 ng/mL (0.000-0.055) 0.039 ng/mL (0.000-0.055) Total Protein 7.0 g/dL (6.4-8.2) Albumin 4.1 g/dL (3.4-5.0) Albumin/Globulin Ratio 1.4 (1.0-1.7) Thyroid Stimulating Hormone (TSH) 9.228 uIU/mL (0.358-3.74) Free Thyroxine 1.37 ng/dL (0.76-1.46) D-Dimer (Sherly) 2.98 ug/mlFEU (0.00-0.50) Glucose (Fingerstick) 147 mg/dL (70-99) Medications Current Medications Adenosine (Adenocard) 6 mg STK-MED ONCE IV ; Start 06/08/18 at 10:31; Stop 06/08 at 10:32; Status DC Diltiazem HCl (Cardizem Iv Push) 25 mg STK-MED ONCE .ROUTE ; Start 06/08/18 at 10:32; Stop 06/08/18 at 10:33; Status DC Adenosine (Adenocard) 12 mg 1X ONCE IV Last administered on 06/08/18at 10:36; Start 06/08/18 at 11:00; Stop 06/08/18 at 11:03; Status DC Sodium Chloride 1,000 ml @ 1,000 mls/hr Q1H IV Last administered on 06/08/18at 10:35; Start 06/08/18 at 10:30; Stop 06/08/18 at 11:29; Status DC Diltiazem HCl (Cardizem Iv Push) 25 mg 1X ONCE IVP Last administered on at 10:39; Start 06/08/18 at 11:00; Stop 06/08/18 at 11:03; Status DC Diltiazem HCl 125 mg/Dextrose 125 ml @ 5 mls/hr CONT PRN IV SEE I/O RECORD Last administered on 06/09/18at 03:04; Start 06/08/18 at 11:00 Fluticasone Propionate (Flonase) 2 spray DAILY NS ; Start 06/09/18 at 09:00 Levothyroxine Sodium (Synthroid) 125 mcg DAILY06 PO Last administered on at 06:14; Start 06/09/18 at 06:00 Cetirizine HCl (ZyrTEC) 10 mg DAILY PO ; Start 06/09/18 at 09:00 Zolpidem Tartrate (Ambien) 5 mg PRN QHS PRN PO INSOMNIA, MAY REPEAT IN 1HR Last administered on 06/08/18at 21:39; Start 06/08/18 at 19:15 Active Scripts Active Reported Loratadine 10 Mg Tablet 1 Tab PO DAILY Diltiazem 24Hr Cd (Diltiazem HCl) 240 Mg Cap.er.24h 240 Mg PO DAILY Levothyroxine Sodium 125 Mcg Tablet 1 Tab PO DAILY Fluticasone Propionate Nasal [place] (Fluticasone Propionate) 16 Gm [place].susp 2 [place] NS DAILY Vitals/I & O Vital Sign - Last 24 Hours 06/08/18 06/08/18 06/08/18 06/08/18 10:24 10:38 10:39 10:41 Temp 98.3 98.3 Pulse 195 202 202 204 Resp 20 B/P (MAP) 115/72 (86) 136/81 Pulse Ox 98 97 97 O2 Delivery Nasal Cannula Nasal Cannula Nasal Cannula O2 Flow Rate 3.0 3.0 3.0 06/08/18 06/08/18 06/08/18 06/08/18 10:42 10:45 10:58 11:28 Pulse 196 196 112 114 B/P (MAP) 136/81 (99) 136/96 (109) 118/78 (91) 132/86 (101) Pulse Ox 97 94 93 97 O2 Delivery Nasal Cannula Nasal Cannula Nasal Cannula Nasal Cannula O2 Flow Rate 3.0 3.0 3.0 3.0 06/08/18 06/08/18 06/08/18 06/08/18 11:58 12:13 12:28 12:58 Pulse 110 55 55 86 Resp 20 22 20 B/P (MAP) 124/69 (87) 91/61 (71) 117/68 (84) 108/67 (81) Pulse Ox 95 O2 Delivery Nasal Cannula Nasal Cannula Nasal Cannula Nasal Cannula O2 Flow Rate 3.0 3.0 3.0 3.0 3/14/19 3/14/19 3/14/19 3/14/19 13:28 13:30 13:30 13:56 Temp 97.8 97.8 Pulse 85 203 94 Resp 20 16 B/P (MAP) 105/81 (89) 144/81 (102) 137/83 (101) Pulse Ox 96 O2 Delivery Nasal Cannula Nasal Cannula Room Air O2 Flow Rate 3.0 2.0 06/08/18 06/08/18 06/08/18 06/08/18 14:00 14:30 15:00 15:30 Pulse 87 86 88 92 B/P (MAP) 119/84 (96) 111/66 (81) 114/85 (95) 111/85 (94) 06/08/18 06/08/18 06/08/18 06/08/18 16:00 16:30 19:30 19:38 Temp 97.6 97.6 Pulse 95 84 93 95 Resp 16 B/P (MAP) 103/60 (74) 121/81 (94) 86/63 (71) 107/74 (85) Pulse Ox 95 O2 Delivery Nasal Cannula O2 Flow Rate 3.0 06/08/18 06/08/18 06/08/18 06/08/18 20:04 20:07 20:37 21:37 Pulse 92 82 91 B/P (MAP) 129/74 (92) 120/81 (94) 113/78 (90) O2 Delivery Nasal Cannula O2 Flow Rate 3.0 06/08/18 06/08/18 06/08/18 06/09/18 22:22 22:37 23:37 00:37 Temp 97.9 97.9 Pulse 90 77 78 84 Resp 22 B/P (MAP) 116/84 (95) 106/67 (80) 114/76 (89) 122/81 (95) Pulse Ox 98 O2 Delivery Nasal Cannula O2 Flow Rate 3.0 06/09/18 06/09/18 06/09/18 06/09/18 01:30 02:43 04:59 05:57 Temp 98.4 98.4 Pulse 82 84 82 86 Resp 20 B/P (MAP) 120/67 (84) 134/72 (92) 112/83 (93) 116/87 (97) Pulse Ox 99 O2 Delivery Nasal Cannula O2 Flow Rate 3.0 06/09/18 06/09/18 07:05 08:00 Temp 97.6 97.6 Pulse 82 Resp 18 B/P (MAP) 115/78 (90) Pulse Ox 97 O2 Delivery Nasal Cannula Nasal Cannula O2 Flow Rate 3.0 2.0 Intake and Output 06/08/18 06/08/18 06/09/18 15:00 23:00 07:00 Intake Total 1000 ml 300 ml 1900 ml Output Total 250 ml Balance 1000 ml 50 ml 1900 ml ODESSA ESTRELLA MD Jun 09, 2018 10:22
[2018-06-09] MEDS ORDERED: HEPARIN for IV BOLUS 10,000 UNIT/10 ML VIAL. IV PRN ×2 (10:30)
[2018-06-09] MEDS ORDERED: HEPARIN 25,000UTS/500ML PREMIX 500 ML IV PRN (10:30)
[2018-06-09] MEDS ORDERED: IOHEXOL 350 MG/ML 100 ML VIAL. IV ONE (10:45)
[2018-06-09] MEDS ORDERED: dilTIAZem INJ 125 MG in IV DEXTROSE 5% 100ML 100 ML IV PRN (10:45)
[2018-06-09] MEDS ORDERED: CONTRAST GIVEN. MC PRN (11:00)
[2018-06-09] MEDS ORDERED: IODIXANOL 320 MG/ML 100 ML VIAL. ONE (11:00)
[2018-06-09] MEDS ORDERED: LIDOCAINE 1% PF 2 ML VIAL. ONE (11:00)
[2018-06-09] MEDS ORDERED: HEPARIN for IV BOLUS 10,000 UNIT/10 ML VIAL. ONE (11:15)
[2018-06-09] MEDS ORDERED: MIDAZOLAM HCL/PF 2 MG/2 ML VIAL. IV ONE (11:15)
[2018-06-09] MEDS ORDERED: NITROGLYCERIN 200 MCG/2 ML SYRINGE FOR CATH/VASC LAB. IART ONE (11:15)
[2018-06-09] MEDS ORDERED: IODIXANOL 320 MG/ML 100 ML VIAL. IART ONE (11:15)
[2018-06-09] MEDS ORDERED: fentaNYL PF VIAL 100 MCG/2 ML VIAL IV ONE (11:15)
[2018-06-09] MEDS ORDERED: MIDAZOLAM HCL/PF 2 MG/2 ML VIAL. ONE (11:15)
[2018-06-09] MEDS ORDERED: fentaNYL PF VIAL 100 MCG/2 ML VIAL ONE (11:15)
[2018-06-09] MEDS ORDERED: VERAPAMIL 5 MG/2 ML VIAL. ONE (11:15)
[2018-06-09] MEDS ORDERED: HEPARIN for IV BOLUS 10,000 UNIT/10 ML VIAL. IART ONE (11:15)
[2018-06-09] MEDS ORDERED: VERAPAMIL 5 MG/2 ML VIAL. IART ONE (11:15)
[2018-06-09] MEDS ORDERED: LIDOCAINE 1% PF 2 ML VIAL. INJ ONE (11:15)
[2018-06-09] MEDS ORDERED: NITROGLYCERIN 200 MCG/2 ML SYRINGE FOR CATH/VASC LAB. ONE (11:15)
--- NOTE | 2018-06-09 11:51 | PDOC ---
MODERATE SEDATION ASSESSMENT RISKS/ALTERNATIVES Risks/Alternatives Risks and alternatives of this type of sedation and procedure discussed with: RISK/ALTERNATIVES: Patient H & P ON CHART H & P H & P on chart and reviewed for co-morbid conditions and appropriate labs. H&P ON CHART: Yes STATUS PREG STATUS ASSESSED: N/A MEDS/ALLERGIES REVIEWED Meds/Allergies Reviewed Medications and Allergies including time and route of recently administered narcotics and sedatives. MEDS/ALLERGIES REVIEWED: Yes ASA RATING ASA RATING: II AIRWAY ASSESSMENT Airway Assessment Airway patency, oral function limitations, presence of caps, crowns, dentures, partials, and ability to extend neck assessed. AIRWAY ASSESSMENT: Yes MALLAMPATI SCORE MALLAMPATI SCORE: II PRE-SEDATION ASSESSMENT PRE-SEDATION ASSESSMENT: Yes SKYLER LESTER MD Jun 09, 2018 11:51
[2018-06-09] MEDS ORDERED: NITROGLYCERIN SUBLINGUAL 0.4 MG BOTTLE OF 25. SL PRN (12:00)
[2018-06-09] MEDS ORDERED: DIGOXIN IV 500 MCG/2 ML AMPUL. IV ONE ×2 (12:00→23:30)
[2018-06-09] MEDS ORDERED: METOPROLOL TART IMMED RELEASE 25 MG TABLET. PO SCH (12:00)
--- NOTE | 2018-06-09 12:02 | CARD ---
MR#: [id number] Date of Study: 06/09/2018 Ordering Physician: SKYLER LARSON, Referring Physician: ODESSA ESTRELLA, Tech: RT Mendoza (R) VARUN APPROVED REPORT Technologist: RT Mendoza (R) VARUN Nurse: Tressa Moore RN Procedure(s) performed: Left heart catheterization and selective coronary angiography via right trans radial approach Moderate sedation: 20 mins INDICATION The indication(s) include : Cardiomyopathy, acute systolic heart failure. CSHA Clinical Frailty Scale CS Clinical Frailty Scale: Very Fit Heart Failure Heart Failure: Yes If Yes, Newly Diagnosed: Yes If Yes, HF Type: Systolic If Yes, NYHA Class: Class II PROCEDURE NARRATIVE After explaining the risks, benefits and alternative options, informed consent was obtained from regina ent. Patient was brought to the cardiac Syrup [facility] and right wrist was prepped and draped in the usual fashion after confirming a positive modified Fausto's test. Arterial access was obtained in the [facility] t radial artery and a 6 Swedish sheath was inserted. 6 Swedish Abner catheter was used to perform leoncio ective angiography of the left and right coronary arteries. LVEDP and transaortic gradients remeasure d. Left ventriculography was not performed since recent 2-D echo showed LVEF 10-15%. Patient tolerate d the procedure well. Hemostasis was achieved using TR band. There were no immediate complications. The following findings were noted. FINDINGS 1. Hemodynamics: Left ventricular end-diastolic pressure of 17 mmHg. No pullback gradient across th e aortic valve. 2. Coronary angiography: a. The left main coronary artery arose from the left sinus of Valsalva, gave rise to the left anteri or descending and left circumflex arteries and did not show any significant stenosis. b. The left anterior descending artery did not show any significant stenosis. c. The left circumflex artery did not show any significant stenosis. d. The right coronary artery was a dominant vessel arising from the right sinus of Valsalva that did not show any significant stenosis. 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 Refer to electrophysiology team for possible ablation of patient's atrial tachycardia. Plan for optimizing medical therapy and repeat 2-D echo in 3 months. Signed by : Skyler Larson, Electronically Approved : 06/09/2018 12:02:25
--- NOTE | 2018-06-09 12:15 | NUR ---
Pt s/p cardiac cath to right radial. Pt back to unit and post procedure protocol discussed. Pt verbalized understanding. VS taken and no issues noted. Will continue to monitor.
--- NOTE | 2018-06-09 13:32 | CONS ---
DATE OF CONSULTATION: PULMONARY CONSULTATION ATTENDING PHYSICIAN: Sam Garcia MD REASON FOR CONSULTATION: Abnormal D-dimer, dyspnea and palpitations. HISTORY OF PRESENT ILLNESS: The patient is a 32-year-old obese male with a BMI of 37. He has minimal history of tobacco use. He has a history of fast heart rate/tachycardia for last 1-1/2 years and also has hypertension, but has never seen a facilities maintenance manager. He recently ran out of his Cardizem about a week and a half ago. The patient came into the hospital with increased palpitations and shortness of breath. He has no chest pains. No headaches, no nausea or vomiting, no diarrhea. No syncopal episode. No congenital heart disease. He was seen in the hospital and his echocardiogram revealed an EF of 10-15%. He was taken to the cardiac catheterization lab and was found to have no significant coronary artery disease. His left ventricle end-diastolic pressure was 17. I have been asked to see him for further evaluation. He has no prior history of thromboembolic disease. No leg pain. PAST MEDICAL HISTORY: Significant for history of hypertension, history of atrial tachycardia for last 1-1/2 years, history of questionable asthma, history of suspected GILBERT, never had formal sleep study; history of hypothyroidism. PAST SURGICAL HISTORY: No recent surgery. ALLERGIES: CEFACLOR. MEDICATIONS: All reviewed as listed in the MRAD. REVIEW OF SYSTEMS: Twelve-point system obtained. Pertinent positives discussed in my history of present illness, otherwise noncontributory. All systems that were negative were reviewed as well. SOCIAL HISTORY: Smoker for about 3 years. PHYSICAL EXAMINATION: GENERAL: He is awake, following commands. VITAL SIGNS: Blood pressure stable, pulse ox 95% on 2 liters. NECK: Supple. LUNGS: Clear. CARDIOVASCULAR: Regular rate and rhythm. ABDOMEN: Soft, nontender. EXTREMITIES: With no pitting edema. LABORATORY DATA: Reviewed. Troponin 0.038. TSH level is 9.2. Sodium 141, potassium 4.1, BUN 16, creatinine 1.1. D-dimer 2.98. IMPRESSION: 1. Dyspnea, likely related to atrial tachycardia. The patient apparently has atrial tachycardia for 1-1/2 years, but never had seen any facilities maintenance manager. He presented with similar symptoms with faster heart rate. His catheterization reveals no significant coronary artery disease, but his ejection fraction is poor at 10-15%. 2. Severe cardiomyopathy, question etiology. 3. Atrial arrhythmias, needs electrophysiologic study. 4. Clinically less likely thromboembolic disease. Elevation in D-dimer is nonspecific, but will rule out thromboembolic disease by doing CTA chest. 5. Highly suspected obstructive sleep apnea. The patient's father reports gasping for air at night. He will benefit from outpatient sleep study. RECOMMENDATIONS: 1. Continue with present oxygen. 2. Obtain baseline chest x-ray. 3. Heparin per protocol per Cardiology. 4. We will obtain CTA chest. 5. Recommend sleep study as an outpatient. 6. Follow Cardiology recommendation. He would benefit from EP study. 7. Discussed with the patient's father and discussed with RN and discussed with Cardiology. LIZBETH SINGH MD DR: RADHA/jeff JOB#: [id number] / [id number] JAVAN
[2018-06-09 14:21] LABS: PROTHROMBIN TIME PATIENT 15.6 SEC (11.7-14.0)
--- NOTE | 2018-06-09 15:00 | NUR ---
Pt continually removing blood pressure cuff during frequent vitals s/p cardiac cath. Pt reminded of post procedural protocol and verbalized understanding, however he stated that it "bothers his arm so bad". Will continue to attempt frequent vital signs.
--- NOTE | 2018-06-09 15:30 | NUR ---
Pt called staff into room to ask questions. Upon arrival to room, patient stated that he removed his IV because "he just couldn't take it anymore". He stated that everytime he moved his arm it was "digging into his skin". Pt educated on the need for IV access. He verbalized understanding but requests that staff wait to place another IV. Will continue to monitor.
[2018-06-09] MEDS ORDERED: METOPROLOL TART IMMED RELEASE 25 MG TABLET. PO ONE (15:45)
--- NOTE | 2018-06-09 15:59 | NUR ---
SS following for discharge planning. SS reviewed pt chart. Pt is from home and currently requiring oxygen. No discharge needs noted at this time. SS will continue to follow for pending discharge needs.
[2018-06-09] MEDS: ANTI-COAG MONITOR BY PHARMACY. MC PRN (16:00)
--- NOTE | 2018-06-09 16:01 | RAD ---
Portable chest, 06/09/2018: HISTORY: Shortness of breath The heart is at the upper limits of normal in size. No pulmonary infiltrate is seen. There is no evidence of pleural fluid. IMPRESSION: 1. Borderline cardiomegaly. 2. No acute infiltrates. Electronically signed by: Driss Krishna MD (06/09/2018 3:57 PM) [facility]
[2018-06-09] MEDS: APIXABAN 5 MG TABLET. PO SCH (18:40)
[2018-06-09] MEDS ORDERED: HYDROcodone/APAP 5/325MG 1 TAB TABLET PO PRN (19:45)
--- NOTE | 2018-06-09 19:59 | PDOC ---
PROGRESS NOTES Subjective Subjective Denied any dyspnea or CP Objective Objective Vital Signs Date Time Temp Pulse Resp B/P (MAP) Pulse Ox O2 Delivery O2 Flow Rate FiO2 06/09/18 17:40 99 Nasal Cannula 2.0 06/09/18 15:51 107 142/89 06/09/18 14:43 97.7 18 97.7 Intake and Output 06/09/18 06:59 Intake Total 3200 ml Output Total 250 ml Balance 2950 ml Intake Oral 2200 ml IV Total 1000 ml Output Urine Total 250 ml # Voids 2 Physical Exam Abdomen: Soft, No tenderness Heart: Regular rate (atrial tach), Normal S1, Normal S2, No murmurs Extremities: No cyanosis, No edema General: Alert, Oriented X3, Cooperative, No acute distress HEENT: Atraumatic, Mucous membr. moist/pink Lungs: Clear to auscultation, Normal air movement MUSCULOSKELETAL: Full range of motion without pain Neuro: Normal speech, Sensation intact Psych/Mental Status: Mental status NL, Mood NL Skin: No breakdown, No significant lesion Assessment Assessment 1. Paroxysmal atrial tachycardia: rate better controlled. Stop CZM infusion and start metoprolol. Add digoxin for better rate control. Start eliquis for AC and plan outpatient EP referral for possible ablation therapy. 2. Cardiomyopathy, acute systolic HF, most probably tachycardia mediated. Better compensated. Cardiac cath did not show any significant CAD. Add lisinopril to med regimen and repeat echo in 3 months DC home tomorrow and follow up as scheduled Plan Plan of Care Problems Medical Problems: (1) Atrial tachycardia Status: Acute Comment Review of Relevant I have reviewed the following items [place] (where applicable) has been applied. Labs Laboratory Tests Test 06/08/18 20:41 06/09/18 03:00 06/09/18 13:50 Glucose (Fingerstick) 147 mg/dL (70-99) Troponin I Quantitative 0.039 ng/mL (0.000-0.055) Prothrombin Time 15.6 SEC (11.7-14.0) Prothromb Time International Ratio 1.3 (0.8-1.1) Activated Partial Thromboplast Time 31 SEC (24-38) Medications Current Medications Acetaminophen/ Hydrocodone Bitart (Lortab 5/325) 1 tab PRN Q4HRS PRN PO PAIN; Start 06/09/18 at 19:45 Apixaban (Eliquis) 5 mg BID PO ; Start 06/09/18 at 21:00; Stop 06/09/18 at 21:00 ; Status DC Apixaban (Eliquis) 10 mg BID PO Last administered on 06/09/18at 18:40; Start at 17:00 Cetirizine HCl (ZyrTEC) 10 mg DAILY PO ; Start 06/09/18 at 09:00 Digoxin (Lanoxin) 125 mcg DAILY PO ; Start 06/10/18 at 09:00 Digoxin (Lanoxin) 500 mcg 1X ONCE IV Last administered on 06/09/18at 14:23; Start 06/09/18 at 12:00; Stop 06/09/18 at 12:01; Status DC Diltiazem HCl 125 mg/Dextrose 125 ml @ 5 mls/hr CONT PRN IV SEE I/O RECORD; Start 06/09/18 at 10:45; Stop 06/09/18 at 11:58; Status DC Fentanyl Citrate (Fentanyl 2ml Vial) 100 mcg 1X ONCE IV Last administered on at 11:15; Start 06/09/18 at 11:15; Stop 06/09/18 at 11:23; Status DC Fentanyl Citrate (Fentanyl 2ml Vial) 100 mcg STK-MED ONCE .ROUTE ; Start at 11:15; Stop 06/09/18 at 11:16; Status DC Fluticasone Propionate (Flonase) 2 spray DAILY NS ; Start 06/09/18 at 09:00 Heparin Sodium (Porcine) (Heparin Sodium) 1,850 unit PRN Q6HRS PRN IV FOR UFH LEVEL 0.2 - 0.29; Start 06/09/18 at 10:30; Stop 06/09/18 at 15:35; Status DC Heparin Sodium (Porcine) (Heparin Sodium) 2,500 unit 1X ONCE IART Last administered on 06/09/18at 11:15; Start 06/09/18 at 11:15; Stop 06/09/18 at 11:23 ; Status DC Heparin Sodium (Porcine) (Heparin Sodium) 3,750 unit PRN Q6HRS PRN IV FOR UFH LEVEL LESS THAN 0.2; Start 06/09/18 at 10:30; Stop 06/09/18 at 15:35; Status DC Heparin Sodium (Porcine) (Heparin Sodium) 10,000 unit STK-MED ONCE .ROUTE ; Start 06/09/18 at 11:15; Stop 06/09/18 at 11:16; Status DC Heparin Sodium/ Dextrose 500 ml @ 0 mls/hr CONT PRN IV SEE I/O RECORD; Start at 10:30; Stop 06/09/18 at 15:34; Status DC Heparin Sodium/ Sodium Chloride 500 ml @ As Directed STK-MED ONCE .ROUTE ; Start 06/09/18 at 11:00; Stop 06/09/18 at 11:01; Status DC Heparin Sodium/ Sodium Chloride (HEPARIN for ARTERIAL LINE FLUSH) 1,000 unit 1X ONCE IART Last administered on 06/09/18at 11:15; Start 06/09/18 at 11:15; Stop 06/09/18 at 11:23; Status DC Info (Anti-Coagulation Monitoring By Pharmacy) 1 each PRN DAILY PRN MC SEE COMMENTS Last administered on 06/09/18at 16:00; Start 06/09/18 at 16:00 Info (CONTRAST GIVEN -- Rx MONITORING) 1 each PRN DAILY PRN MC SEE COMMENTS; Start 06/09/18 at 11:00; Stop 06/11/18 at 10:59 Iodixanol (Visipaque 320) 100 ml 1X ONCE IART Last administered on 06/09/18at 11:15; Start 06/09/18 at 11:15; Stop 06/09/18 at 11:23; Status DC Iodixanol (Visipaque 320) 100 ml STK-MED ONCE .ROUTE ; Start 06/09/18 at 11:00; Stop 06/09/18 at 11:01; Status DC Iohexol (Omnipaque 350 Mg/ml) 100 ml 1X ONCE IV ; Start 06/09/18 at 10:45; Stop 06/09/18 at 10:46; Status DC Levothyroxine Sodium (Synthroid) 125 mcg DAILY06 PO Last administered on at 06:14; Start 06/09/18 at 06:00 Lidocaine HCl (Xylocaine-Mpf 1% 2ml Vial) 2 ml 1X ONCE INJ Last administered on 06/09/18at 11:15; Start 06/09/18 at 11:15; Stop 06/09/18 at 11:23; Status DC Lidocaine HCl (Xylocaine-Mpf 1% 2ml Vial) 2 ml STK-MED ONCE .ROUTE ; Start 06/09 at 11:00; Stop 06/09/18 at 11:01; Status DC Lisinopril (Prinivil) 2.5 mg DAILY PO ; Start 06/10/18 at 09:00 Metoprolol Tartrate (Lopressor) 25 mg 1X ONCE PO Last administered on at 15:51; Start 06/09/18 at 15:45; Stop 06/09/18 at 15:46; Status DC Metoprolol Tartrate (Lopressor) 25 mg BID PO ; Start 06/09/18 at 21:00 Metoprolol Tartrate (Lopressor) 25 mg Q6HRS PO ; Start 06/09/18 at 12:00; Stop 06/09/18 at 12:00; Status DC Midazolam HCl (Versed) 2 mg 1X ONCE IV Last administered on 06/09/18at 11:15; Start 06/09/18 at 11:15; Stop 06/09/18 at 11:23; Status DC Midazolam HCl (Versed) 2 mg STK-MED ONCE .ROUTE ; Start 06/09/18 at 11:15; Stop 06/09/18 at 11:16; Status DC Nitroglycerin (Nitroglycerin) 200 mcg 1X ONCE IART Last administered on at 11:15; Start 06/09/18 at 11:15; Stop 06/09/18 at 11:23; Status DC Nitroglycerin (Nitroglycerin) 200 mcg STK-MED ONCE .ROUTE ; Start 06/09/18 at 11 :15; Stop 06/09/18 at 11:16; Status DC Nitroglycerin (Nitrostat) 0.4 mg PRN Q5MIN PRN SL CHEST PAIN; Start 06/09/18 at 12:00 Verapamil HCl (Verapamil) 2.5 mg 1X ONCE IART Last administered on 06/09/18at 11:15; Start 06/09/18 at 11:15; Stop 06/09/18 at 11:23; Status DC Verapamil HCl (Verapamil) 5 mg STK-MED ONCE .ROUTE ; Start 06/09/18 at 11:15; Stop 06/09/18 at 11:16; Status DC Vitals/I & O Vital Sign - Last 24 Hours 06/08/18 06/08/18 06/08/18 06/08/18 20:04 20:07 20:37 21:37 Pulse 92 82 91 B/P (MAP) 129/74 (92) 120/81 (94) 113/78 (90) O2 Delivery Nasal Cannula O2 Flow Rate 3.0 06/08/18 06/08/18 06/08/18 06/09/18 22:22 22:37 23:37 00:37 Temp 97.9 97.9 Pulse 90 77 78 84 Resp 22 B/P (MAP) 116/84 (95) 106/67 (80) 114/76 (89) 122/81 (95) Pulse Ox 98 O2 Delivery Nasal Cannula O2 Flow Rate 3.0 06/09/18 06/09/18 06/09/18 06/09/18 01:30 02:43 04:59 05:57 Temp 98.4 98.4 Pulse 82 84 82 86 Resp 20 B/P (MAP) 120/67 (84) 134/72 (92) 112/83 (93) 116/87 (97) Pulse Ox 99 O2 Delivery Nasal Cannula O2 Flow Rate 3.0 06/09/18 06/09/18 06/09/18 06/09/18 07:05 08:00 10:42 11:15 Temp 97.6 97.5 97.6 97.5 Pulse 82 49 110 Resp 18 18 B/P (MAP) 115/78 (90) 105/55 (72) Pulse Ox 97 97 O2 Delivery Nasal Cannula Nasal Cannula Nasal Cannula O2 Flow Rate 3.0 2.0 2.0 06/09/18 06/09/18 06/09/18 06/09/18 11:15 11:58 12:15 12:15 Pulse 87 87 51 Resp 22 20 20 B/P (MAP) 140/98 (112) Pulse Ox 95 95 O2 Delivery Nasal Cannula Nasal Cannula O2 Flow Rate 2.0 2.0 06/09/18 06/09/18 06/09/18 06/09/18 12:30 12:45 13:30 14:15 Pulse 51 51 52 49 B/P (MAP) 140/95 (110) 145/92 (109) 152/99 (116) 142/89 (106) 06/09/18 06/09/18 06/09/1815/19 14:23 14:43 15:51 17:40 Temp 97.7 97.7 Pulse 92 50 107 Resp 18 B/P (MAP) 142/89 142/89 (106) 142/89 Pulse Ox 99 99 O2 Delivery Nasal Cannula Nasal Cannula O2 Flow Rate 2.0 2.0 Intake and Output 06/08/18 06/08/18 06/09/18 14:59 22:59 06:59 Intake Total 1000 ml 200 ml 2000 ml Output Total 250 ml Balance 1000 ml -50 ml 2000 ml SKYLER LESTER MD Jun 09, 2018 19:59
[2018-06-09] MEDS: METOPROLOL TART IMMED RELEASE 25 MG TABLET. PO SCH (20:19)
[2018-06-09] MEDS ORDERED: APIXABAN 5 MG TABLET. PO SCH (21:00)
--- NOTE | 2018-06-09 22:44 | NUR ---
At 1900, patient is very anxious, feels "worse than I did yesterday" and "like I might be dying." Pt is complaining of shortness of air that waxes and wanes, but now "I can't breathe." Pt is on 2LNC, SpO2 99%, lungs cta bilaterally. Pt has 5 cm kai knot under skin proximal to IV site that was removed several hours ago and has no current IV access, as pt has requested to wait until morning to start new IV. paged, orders recvd for stat VQ scan and LUE US. Pt tolerated scan well, feels better now at 2230, and has warm pack at L arm. Family at bedside, will continue to monitor.
--- NOTE | 2018-06-09 22:46 | RAD ---
UE VENOUS DUPLEX LEFT, UPPER EXTREMITY Left upper extremity venous duplex was performed using B-mode, color-flow, and spectral Doppler. Indication: Left upper extremity pain. Findings: The Left internal jugular, subclavian, axillary, brachial, basilic, and cephalic veins were assessed for patency. 10 cm occlusive thrombus is seen within the left cephalic vein in the region of the IV access site extending proximal. Otherwise the vessels were found to be compressible and demonstrated phasic, competent to flow with normal augmentation. Impression: 1. 10 cm occlusive thrombus within the left cephalic vein. Electronically signed by: Adebayo Marion MD (06/09/2018 10:43 PM) [facility]
--- NOTE | 2018-06-09 23:26 | RAD ---
Indication: Elevated d-dimer. Dyspnea. Chest pain. TECHNIQUE: Nuclear medicine VQ scan with 14.2 mCi of xenon-133 for ventilation scan and 5.5 mCi of technetium 99m MAA for perfusion scan. COMPARISON: Chest x-ray from same day earlier FINDINGS: Appropriate wash-in and washout is seen on the ventilation scan. Homogeneous distribution is seen of the perfusion agent without ventilation/perfusion mismatch. IMPRESSION: Low probability VQ scan. Electronically signed by: Aleksander Marcelo DO (06/09/2018 11:23 PM) [id number]
[2018-06-09] MEDS ORDERED: METOPROLOL TARTRATE 5 MG/5 ML VIAL. IVP ONE (23:30)
[2018-06-10] MEDS: ZOLPIDEM 5 MG TABLET. PO PRN ×4 (00:20→23:29)
[2018-06-10] MEDS ORDERED: METOPROLOL TARTRATE 5 MG/5 ML VIAL. IVP ONE (00:30)
[2018-06-10 03:30] VITALS: BP 139/84
[2018-06-10] MEDS: LEVOTHYROXINE 125 MCG TABLET PO SCH (06:15)
--- NOTE | 2018-06-10 06:59 | PDOC ---
PULMONARY PROGRESS NOTES Subjective has sob last night vq scan low prob, sob better, no cough, no cp, is tachycardic Vitals Vital Signs Date Time Temp Pulse Resp B/P (MAP) Pulse Ox O2 Delivery O2 Flow Rate FiO2 06/10/18 03:30 99.7 105 22 139/84 (102) 95 Room Air 99.7 06/09/18 21:20 2.0 ROS: No Nausea, No Chest Pain General: Alert HEENT: Other (nc at perrl ) Lungs: Crackles Cardiovascular: Other (tachycardic) Abdomen: Soft, Non-tender Neuro Exam: Alert Extremities: No Edema Skin: Warm Labs Laboratory Tests Test 06/08/18 10:35 06/08/18 19:30 06/08/18 20:41 06/09/18 03:00 White Blood Count 12.4 x10^3/uL (4.0-11.0) Red Blood Count 5.82 x10^6/uL (4.30-5.70) Hemoglobin 17.2 g/dL (13.0-17.5) Hematocrit 52.8 % (39.0-53.0) Mean Corpuscular Volume 91 fL (79-100) Mean Corpuscular Hemoglobin 30 pg (25-35) Mean Corpuscular Hemoglobin Concent 33 g/dL (31-37) Red Cell Distribution Width 16.0 % (11.5-14.5) Platelet Count 221 x10^3/uL (140-400) Neutrophils (%) (Auto) 67 % (31-73) Lymphocytes (%) (Auto) 26 % (24-48) Monocytes (%) (Auto) 6 % (0-9) Eosinophils (%) (Auto) 1 % (0-3) Basophils (%) (Auto) 1 % (0-3) Neutrophils # (Auto) 8.3 x10^3uL (1.8-7.7) Lymphocytes # (Auto) 3.2 x10^3/uL (1.0-4.8) Monocytes # (Auto) 0.7 x10^3/uL (0.0-1.1) Eosinophils # (Auto) 0.1 x10^3/uL (0.0-0.7) Basophils # (Auto) 0.1 x10^3/uL (0.0-0.2) Sodium Level 141 mmol/L (136-145) Potassium Level 4.1 mmol/L (3.5-5.1) Chloride Level 103 mmol/L (98-107) Carbon Dioxide Level 23 mmol/L (21-32) Anion Gap 15 (6-14) Blood Urea Nitrogen 16 mg/dL (8-26) Creatinine 1.1 mg/dL (0.7-1.3) Estimated GFR (Cockcroft-Gault) 78.1 BUN/Creatinine Ratio 15 (6-20) Glucose Level 103 mg/dL (70-99) Calcium Level 9.0 mg/dL (8.5-10.1) Magnesium Level 2.3 mg/dL (1.8-2.4) Total Bilirubin 0.9 mg/dL (0.2-1.0) Aspartate Amino Transf (AST/SGOT) 31 U/L (15-37) Alanine Aminotransferase (ALT/SGPT) 60 U/L (16-63) Alkaline Phosphatase 76 U/L (46-116) Troponin I Quantitative 0.025 ng/mL (0.000-0.055) 0.038 ng/mL (0.000-0.055) 0.039 ng/mL (0.000-0.055) Total Protein 7.0 g/dL (6.4-8.2) Albumin 4.1 g/dL (3.4-5.0) Albumin/Globulin Ratio 1.4 (1.0-1.7) Thyroid Stimulating Hormone (TSH) 9.228 uIU/mL (0.358-3.74) Free Thyroxine 1.37 ng/dL (0.76-1.46) D-Dimer ([place]) 2.98 ug/mlFEU (0.00-0.50) Glucose (Fingerstick) 147 mg/dL (70-99) Test 06/09/18 13:50 Prothrombin Time 15.6 SEC (11.7-14.0) Prothromb Time International Ratio 1.3 (0.8-1.1) Activated Partial Thromboplast Time 31 SEC (24-38) Laboratory Tests Test 06/09/18 13:50 Prothrombin Time 15.6 SEC (11.7-14.0) Prothromb Time International Ratio 1.3 (0.8-1.1) Activated Partial Thromboplast Time 31 SEC (24-38) Medications Active Scripts Medications Dose Route/Sig Max Daily Dose Days Date Category Loratadine 10 Mg Tablet 1 Tab PO DAILY 06/08/18 Reported Diltiazem 24Hr Cd (Diltiazem HCl) 240 Mg Cap.er.24h 240 Mg PO DAILY 06/08/18 Reported Levothyroxine Sodium 125 Mcg Tablet 1 Tab PO DAILY 06/08/18 Reported Fluticasone Propionate Nasal [place] (Fluticasone Propionate) 16 Gm [place].susp 2 [place] NS DAILY 06/08/[address] 1. Moderate bilateral effusions. 2. Mild atelectasis in the lung bases. 3. No definite pulmonary embolus. Impression . IMPRESSION: 1. Dyspnea, likely related to atrial tachycardia. 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 He presented with similar symptoms with faster heart rate. His catheterization reveals no significant coronary artery disease, but his ejection fraction is poor at 10-15%. 2. Severe cardiomyopathy, question etiology. 3. Atrial arrhythmias, needs electrophysiologic study. 4. Elevation in D-dimer is nonspecific, CTA chest, no pe. 5. Highly suspected obstructive sleep apnea. The patient's father reports gasping for air at night. He will benefit from outpatient sleep study. Plan . RECOMMENDATIONS: 1. oxygen titration. 2. cta reviewed, no pe 3. anticoag per Cardiology. 4. quit smoking for ever 5. Recommend sleep study as an outpatient. 6. Follow Cardiology recommendation. ?EP study. discussed w pt and rn CAMERON PLAZA MD Jun 10, 2018 06:59
[2018-06-10 07:20] VITALS: BP 136/81
--- NOTE | 2018-06-10 08:26 | RAD ---
CT arteriogram of the chest. HISTORY: Elevated d-dimer CT arteriogram of the chest was done using 100 mL Omnipaque 350 contrast. Sagittal and coronal MIP images were reconstructed. There is no mediastinal adenopathy. There are moderate bilateral pleural effusions. There is mild atelectasis in the lower lobes. Visualized portions liver and spleen are unremarkable. Adrenal glands are normal. There is respiratory motion artifact in the lung bases which limits evaluation. There is no definite pulmonary embolus. There are no other confluent infiltrates. IMPRESSION: 1. Moderate bilateral effusions. 2. Mild atelectasis in the lung bases. 3. No definite pulmonary embolus. Electronically signed by: Jerrod Leslie MD (06/10/2018 8:24 AM) [facility]
[2018-06-10] MEDS: DIGOXIN 125 MCG TABLET. PO SCH (08:31)
[2018-06-10] MEDS: FLUTICASONE 50MCG/NASAL SPRAY 16GM BOTTLE. NS SCH (08:31)
[2018-06-10] MEDS: CETIRIZINE HCL 10 MG TABLET. PO SCH (08:31)
[2018-06-10] MEDS: METOPROLOL TART IMMED RELEASE 25 MG TABLET. PO SCH ×3 (08:32→18:40)
[2018-06-10] MEDS: LISINOPRIL 5 MG TABLET. PO SCH (08:33)
[2018-06-10] MEDS: APIXABAN 5 MG TABLET. PO SCH ×2 (08:34→20:36)
--- NOTE | 2018-06-10 09:19 | PDOC ---
PROGRESS NOTES History of Present Illness History of Present Illness Assessment/Plan Assessment/Plan impression 1. Parxysomal supraventricular tachycardia 2. morbid obesity 3. hx htn 4. possible GILBERT 5. elevated tsh with nl free T4 MAY REFLECT EARLY SUBCLINICAL HYPOTHYROID STATE 6. elevated d-dimer R/O PE 7. elevated hgb/hct 06/09 PT BECAME MORE soa/ FLUSHED THIS am D/W HOPE SALEH , d-dimer drawn, high will do stat CT PE PROTOCOL, START HEPARIN DRIP PENDING RESULT STATES he has not felt well with fatigue since this Tuesday The left ventricular systolic function is severely impaired. The Ejection Fraction is 10-15%. Trace mitral regurgitation. Trace tricuspid regurgitation with an estimated PAP of 24 mmHg. There is no evidence of significant pericardial effusion. Signed by : Daniel Larson, Electronically Approved : 06/09/2018 07:46:13 06/10 RECURRENT TACHY LAST NIGHT HR 180, METOPROLOL DOSE INC PLANNING BERTIN TUESDAY, BLOOD FOR MARCI-2 mutation erythropoeitin level, heme consuly, pulm consult possible sleep apnea PLAN monitor CVC ECHO REVIEWED T4 free ok tsh high, start synthroid low dose IV CARDIZEM CARDIOLOGY following MAY BENEFIT FROM POLYSOMONOGRAPHY OUT-PAT avoid ceffeine THYROID SONO, EVAL OUTPT PE PROTOCOL STAT 06/09, HEPARIN D/C, ON ELIQUIS MAY NEED EP study COMPLEX MEDICAL DECISION MAKING PER MY CHART REVIEW 52 min > 50% spent in pt care coordination, chart review pt exam Vitals Vitals Vital Signs Date Time Temp Pulse Resp B/P (MAP) Pulse Ox O2 Delivery O2 Flow Rate FiO2 06/10/18 08:33 110 136/81 06/10/18 07:20 97.6 28 98 Room Air 97.6 06/09/18 21:20 2.0 Physical Exam General: Alert, Oriented X3, Cooperative, No acute distress, Other (anxious) Heart: Regular rate (atrial tach), Normal S1, Normal S2, No murmurs Lungs: Clear Abdomen: Normal bowel sounds, Soft, No tenderness Extremities: No cyanosis, No edema Skin: No breakdown, No significant lesion Labs LABS CT arteriogram of the chest. HISTORY: Elevated d-dimer CT arteriogram of the chest was done using 100 mL Omnipaque 350 contrast. Sagittal and coronal MIP images were reconstructed. There is no mediastinal adenopathy. There are moderate bilateral pleural effusions. There is mild atelectasis in the lower lobes. Visualized portions liver and spleen are unremarkable. Adrenal glands are normal. There is respiratory motion artifact in the lung bases which limits evaluation. There is no definite pulmonary embolus. There are no other confluent infiltrates. IMPRESSION: 1. Moderate bilateral effusions. 2. Mild atelectasis in the lung bases. 3. No definite pulmonary embolus. Electronically signed by: Jerrod Leslie MD (06/10/2018 8:24 AM) [facility] DICTATED and SIGNED BY: JERROD LESLIE MD DATE: 06/10/18 0824 Laboratory Tests Test 06/09/18 13:50 Prothrombin Time 15.6 SEC (11.7-14.0) Prothromb Time International Ratio 1.3 (0.8-1.1) Activated Partial Thromboplast Time 31 SEC (24-38) Assessment and Plan Assessmemt and Plan Problems Medical Problems: (1) Atrial tachycardia Status: Acute LEFT VENTRICLE The Left Ventricle is mildly dilated. There is mild to moderate concentric left ventricular hypertrophy. The left ventricular systolic function is severely impaired. The Ejection Fraction is 10-15%. There is global hypokinesis of the left ventricle. RIGHT VENTRICLE The right ventricle is mildly dilated. Systolic function is mildly reduced. ATRIA The left atrium is mildly dilated. The right atrium size is normal. The interatrial septum is intact with no evidence for an atrial septal defect or patent foramen ovale as noted on 2-D or Doppler imaging. AORTIC VALVE The aortic valve is normal in structure and function. Doppler and Color Flow revealed no significant aortic regurgitation. There is no significant aortic valvular stenosis. MITRAL VALVE The mitral valve is normal in structure and function. There is no evidence of mitral valve prolapse. There is no mitral valve stenosis. Doppler and Color- flow revealed trace mitral regurgitation. TRICUSPID VALVE The tricuspid valve is normal in structure and function. Doppler and Color Flow revealed trace tricuspid regurgitation with an estimated PAP of 24 mmHg. There is no tricuspid valve stenosis. PULMONIC VALVE The pulmonary valve is normal in structure and function. Doppler and Color Flow revealed trace pulmonic valvular regurgitation. GREAT VESSELS The aortic root is normal in size. The IVC is normal in size and collapses >50% with inspiration. PERICARDIAL EFFUSION There is moderate left pleural effusion. There is no evidence of significant pericardial effusion. Critical Notification Physician Notified Date: 06/08/2018 Time: 19:46 Critical Value: Yes <Conclusion> The left ventricular systolic function is severely impaired. The Ejection Fraction is 10-15%. Trace mitral regurgitation. Trace tricuspid regurgitation with an estimated PAP of 24 mmHg. There is no evidence of significant pericardial effusion. Signed by : Daniel Larson, Comment Review of Relevant I have reviewed the following items [place] (where applicable) has been applied. Labs Laboratory Tests Test 06/08/18 10:35 06/08/18 19:30 06/08/18 20:41 06/09/18 03:00 White Blood Count 12.4 x10^3/uL (4.0-11.0) Red Blood Count 5.82 x10^6/uL (4.30-5.70) Hemoglobin 17.2 g/dL (13.0-17.5) Hematocrit 52.8 % (39.0-53.0) Mean Corpuscular Volume 91 fL (79-100) Mean Corpuscular Hemoglobin 30 pg (25-35) Mean Corpuscular Hemoglobin Concent 33 g/dL (31-37) Red Cell Distribution Width 16.0 % (11.5-14.5) Platelet Count 221 x10^3/uL (140-400) Neutrophils (%) (Auto) 67 % (31-73) Lymphocytes (%) (Auto) 26 % (24-48) Monocytes (%) (Auto) 6 % (0-9) Eosinophils (%) (Auto) 1 % (0-3) Basophils (%) (Auto) 1 % (0-3) Neutrophils # (Auto) 8.3 x10^3uL (1.8-7.7) Lymphocytes # (Auto) 3.2 x10^3/uL (1.0-4.8) Monocytes # (Auto) 0.7 x10^3/uL (0.0-1.1) Eosinophils # (Auto) 0.1 x10^3/uL (0.0-0.7) Basophils # (Auto) 0.1 x10^3/uL (0.0-0.2) Sodium Level 141 mmol/L (136-145) Potassium Level 4.1 mmol/L (3.5-5.1) Chloride Level 103 mmol/L (98-107) Carbon Dioxide Level 23 mmol/L (21-32) Anion Gap 15 (6-14) Blood Urea Nitrogen 16 mg/dL (8-26) Creatinine 1.1 mg/dL (0.7-1.3) Estimated GFR (Cockcroft-Gault) 78.1 BUN/Creatinine Ratio 15 (6-20) Glucose Level 103 mg/dL (70-99) Calcium Level 9.0 mg/dL (8.5-10.1) Magnesium Level 2.3 mg/dL (1.8-2.4) Total Bilirubin 0.9 mg/dL (0.2-1.0) Aspartate Amino Transf (AST/SGOT) 31 U/L (15-37) Alanine Aminotransferase (ALT/SGPT) 60 U/L (16-63) Alkaline Phosphatase 76 U/L (46-116) Troponin I Quantitative 0.025 ng/mL (0.000-0.055) 0.038 ng/mL (0.000-0.055) 0.039 ng/mL (0.000-0.055) Total Protein 7.0 g/dL (6.4-8.2) Albumin 4.1 g/dL (3.4-5.0) Albumin/Globulin Ratio 1.4 (1.0-1.7) Thyroid Stimulating Hormone (TSH) 9.228 uIU/mL (0.358-3.74) Free Thyroxine 1.37 ng/dL (0.76-1.46) D-Dimer (Sherly) 2.98 ug/mlFEU (0.00-0.50) Glucose (Fingerstick) 147 mg/dL (70-99) Test 06/09/18 13:50 Prothrombin Time 15.6 SEC (11.7-14.0) Prothromb Time International Ratio 1.3 (0.8-1.1) Activated Partial Thromboplast Time 31 SEC (24-38) Laboratory Tests Test 06/09/18 13:50 Prothrombin Time 15.6 SEC (11.7-14.0) Prothromb Time International Ratio 1.3 (0.8-1.1) Activated Partial Thromboplast Time 31 SEC (24-38) Medications Current Medications Adenosine (Adenocard) 6 mg STK-MED ONCE IV ; Start 06/08/18 at 10:31; Stop 06/08 at 10:32; Status DC Diltiazem HCl (Cardizem Iv Push) 25 mg STK-MED ONCE .ROUTE ; Start 06/08/18 at 10:32; Stop 06/08/18 at 10:33; Status DC Adenosine (Adenocard) 12 mg 1X ONCE IV Last administered on 06/08/18at 10:36; Start 06/08/18 at 11:00; Stop 06/08/18 at 11:03; Status DC Sodium Chloride 1,000 ml @ 1,000 mls/hr Q1H IV Last administered on 06/08/18at 10:35; Start 06/08/18 at 10:30; Stop 06/08/18 at 11:29; Status DC Diltiazem HCl (Cardizem Iv Push) 25 mg 1X ONCE IVP Last administered on at 10:39; Start 06/08/18 at 11:00; Stop 06/08/18 at 11:03; Status DC Diltiazem HCl 125 mg/Dextrose 125 ml @ 5 mls/hr CONT PRN IV SEE I/O RECORD Last administered on 06/09/18at 03:04; Start 06/08/18 at 11:00; Stop 06/09/18 at 10:32; Status DC Fluticasone Propionate (Flonase) 2 spray DAILY NS Last administered on at 08:31; Start 06/09/18 at 09:00 Levothyroxine Sodium (Synthroid) 125 mcg DAILY06 PO Last administered on at 06:15; Start 06/09/18 at 06:00 Cetirizine HCl (ZyrTEC) 10 mg DAILY PO Last administered on 06/10/18at 08:31; Start 06/09/18 at 09:00 Zolpidem Tartrate (Ambien) 5 mg PRN QHS PRN PO INSOMNIA, MAY REPEAT IN 1HR Last administered on 06/10/18at 01:26; Start 06/08/18 at 19:15 Metoprolol Tartrate (Lopressor) 25 mg Q6HRS PO ; Start 06/09/18 at 12:00; Stop 06/09/18 at 12:00; Status DC Iohexol (Omnipaque 350 Mg/ml) 100 ml 1X ONCE IV ; Start 06/09/18 at 10:45; Stop 06/09/18 at 10:46; Status DC Heparin Sodium/ Dextrose 500 ml @ 0 mls/hr CONT PRN IV SEE I/O RECORD; Start at 10:30; Stop 06/09/18 at 15:34; Status DC Heparin Sodium (Porcine) (Heparin Sodium) 3,750 unit PRN Q6HRS PRN IV FOR UFH LEVEL LESS THAN 0.2; Start 06/09/18 at 10:30; Stop 06/09/18 at 15:35; Status DC Heparin Sodium (Porcine) (Heparin Sodium) 1,850 unit PRN Q6HRS PRN IV FOR UFH LEVEL 0.2 - 0.29; Start 06/09/18 at 10:30; Stop 06/09/18 at 15:35; Status DC Diltiazem HCl 125 mg/Dextrose 125 ml @ 5 mls/hr CONT PRN IV SEE I/O RECORD; Start 06/09/18 at 10:45; Stop 06/09/18 at 11:58; Status DC Info (CONTRAST GIVEN -- Rx MONITORING) 1 each PRN DAILY PRN MC SEE COMMENTS; Start 06/09/18 at 11:00; Stop 06/11/18 at 10:59 Iodixanol (Visipaque 320) 100 ml STK-MED ONCE .ROUTE ; Start 06/09/18 at 11:00; Stop 06/09/18 at 11:01; Status DC Lidocaine HCl (Xylocaine-Mpf 1% 2ml Vial) 2 ml STK-MED ONCE .ROUTE ; Start 06/09 at 11:00; Stop 06/09/18 at 11:01; Status DC Heparin Sodium/ Sodium Chloride 500 ml @ As Directed STK-MED ONCE .ROUTE ; Start 06/09/18 at 11:00; Stop 06/09/18 at 11:01; Status DC Fentanyl Citrate (Fentanyl 2ml Vial) 100 mcg STK-MED ONCE .ROUTE ; Start at 11:15; Stop 06/09/18 at 11:16; Status DC Midazolam HCl (Versed) 2 mg STK-MED ONCE .ROUTE ; Start 06/09/18 at 11:15; Stop 06/09/18 at 11:16; Status DC Heparin Sodium (Porcine) (Heparin Sodium) 10,000 unit STK-MED ONCE .ROUTE ; Start 06/09/18 at 11:15; Stop 06/09/18 at 11:16; Status DC Verapamil HCl (Verapamil) 5 mg STK-MED ONCE .ROUTE ; Start 06/09/18 at 11:15; Stop 06/09/18 at 11:16; Status DC Nitroglycerin (Nitroglycerin) 200 mcg STK-MED ONCE .ROUTE ; Start 06/09/18 at 11 :15; Stop 06/09/18 at 11:16; Status DC Nitroglycerin (Nitroglycerin) 200 mcg 1X ONCE IART Last administered on at 11:15; Start 06/09/18 at 11:15; Stop 06/09/18 at 11:23; Status DC Verapamil HCl (Verapamil) 2.5 mg 1X ONCE IART Last administered on 06/09/18 11:15; Start 06/09/18 at 11:15; Stop 06/09/18 at 11:23; Status DC Heparin Sodium (Porcine) (Heparin Sodium) 2,500 unit 1X ONCE IART Last administered on 06/09/18 11:15; Start 06/09/18 at 11:15; Stop 06/09/18 at 11:23 ; Status DC Heparin Sodium/ Sodium Chloride (HEPARIN for ARTERIAL LINE FLUSH) 1,000 unit 1X ONCE IART Last administered on 06/09/18 11:15; Start 06/09/18 at 11:15; Stop 06/09/18 at 11:23; Status DC Midazolam HCl (Versed) 2 mg 1X ONCE IV Last administered on 06/09/18 11:15; Start 06/09/18 at 11:15; Stop 06/09/18 at 11:23; Status DC Fentanyl Citrate (Fentanyl 2ml Vial) 100 mcg 1X ONCE IV Last administered on 11:15; Start 06/09/18 at 11:15; Stop 06/09/18 at 11:23; Status DC Iodixanol (Visipaque 320) 100 ml 1X ONCE IART Last administered on 06/09/18 11:15; Start 06/09/18 at 11:15; Stop 06/09/18 at 11:23; Status DC Lidocaine HCl (Xylocaine-Mpf 1% 2ml Vial) 2 ml 1X ONCE INJ Last administered on 06/09/18at 11:15; Start 06/09/18 at 11:15; Stop 06/09/18 at 11:23; Status DC Nitroglycerin (Nitrostat) 0.4 mg PRN Q5MIN PRN SL CHEST PAIN; Start 06/09/18 at 12:00 Metoprolol Tartrate (Lopressor) 25 mg BID PO Last administered on 06/10/18 08: 32; Start 06/09/18 at 21:00 Digoxin (Lanoxin) 500 mcg 1X ONCE IV Last administered on 06/09/18at 14:23; Start 06/09/18 at 12:00; Stop 06/09/18 at 12:01; Status DC Digoxin (Lanoxin) 125 mcg DAILY PO Last administered on 06/10/18 08:31; Start 06/10/18 at 09:00 Lisinopril (Prinivil) 2.5 mg DAILY PO Last administered on 06/10/18 08:33; Start 06/10/18 at 09:00 Apixaban (Eliquis) 5 mg BID PO ; Start 06/09/18 at 21:00; Stop 06/09/18 at 21:00 ; Status DC Apixaban (Eliquis) 10 mg BID PO Last administered on 06/10/18 08:34; Start at 17:00 Metoprolol Tartrate (Lopressor) 25 mg 1X ONCE PO Last administered on 15:51; Start 06/09/18 at 15:45; Stop 06/09/18 at 15:46; Status DC Info (Anti-Coagulation Monitoring By Pharmacy) 1 each PRN DAILY PRN MC SEE COMMENTS Last administered on 06/09/18at 16:00; Start 06/09/18 at 16:00 Acetaminophen/ Hydrocodone Bitart (Lortab 5/325) 1 tab PRN Q4HRS PRN PO PAIN Last administered on 06/09/18 20:19; Start 06/09/18 at 19:45 Digoxin (Lanoxin) 500 mcg 1X ONCE IV Last administered on 06/09/18 23:47; Start 06/09/18 at 23:30; Stop 06/09/18 at 23:31; Status DC Metoprolol Tartrate (Lopressor Vial) 5 mg 1X ONCE IVP Last administered on at 23:40; Start 06/09/18 at 23:30; Stop 06/09/18 at 23:31; Status DC Metoprolol Tartrate (Lopressor Vial) 5 mg 1X ONCE IVP Last administered on at 00:25; Start 06/10/18 at 00:30; Stop 06/10/18 at 00:31; Status DC Active Scripts Active Reported Loratadine 10 Mg Tablet 1 Tab PO DAILY Diltiazem 24Hr Cd (Diltiazem HCl) 240 Mg Cap.er.24h 240 Mg PO DAILY Levothyroxine Sodium 125 Mcg Tablet 1 Tab PO DAILY Fluticasone Propionate Nasal [place] (Fluticasone Propionate) 16 Gm [place].susp 2 [place] NS DAILY Vitals/I & O Vital Sign - Last 24 Hours 06/09/18 06/09/18 06/09/18 06/09/18 10:42 11:15 11:15 11:58 Temp 97.5 97.5 Pulse 49 110 87 Resp 18 22 20 B/P (MAP) 105/55 (72) Pulse Ox 97 95 O2 Delivery Nasal Cannula Nasal Cannula O2 Flow Rate 2.0 2.0 06/09/18 06/09/18 06/09/18 06/09/18 12:15 12:15 12:30 12:45 Pulse 87 51 51 51 Resp 20 B/P (MAP) 140/98 (112) 140/95 (110) 145/92 (109) Pulse Ox 95 O2 Delivery Nasal Cannula O2 Flow Rate 2.0 06/09/18 06/09/18 06/09/18 06/09/18 13:30 14:15 14:23 14:43 Temp 97.7 97.7 Pulse 52 49 92 50 Resp 18 B/P (MAP) 152/99 (116) 142/89 (106) 142/89 142/89 (106) Pulse Ox 99 O2 Delivery Nasal Cannula O2 Flow Rate 2.0 06/09/18 06/09/18 06/09/18 06/09/18 15:51 17:40 19:35 20:00 Temp 97.4 97.4 Pulse 107 120 Resp 17 B/P (MAP) 142/89 129/88 (102) Pulse Ox 99 100 O2 Delivery Nasal Cannula Nasal Cannula Nasal Cannula O2 Flow Rate 2.0 2.0 2.5 06/09/18 06/09/18 06/09/18 06/09/18 20:19 20:19 21:20 23:31 Temp 98.1 98.1 Pulse 120 132 Resp 20 18 18 B/P (MAP) 129/88 168/90 (116) Pulse Ox 100 100 96 O2 Delivery Nasal Cannula Nasal Cannula Room Air O2 Flow Rate 2.0 2.0 06/09/18 06/09/18 06/09/18 06/10/18 23:40 23:40 23:47 00:25 Pulse 144 125 148 128 B/P (MAP) 168/90 120/81 (94) 168/90 120/81 06/10/18 06/10/18 06/10/18 06/10/18 03:30 07:20 08:31 08:32 Temp 99.7 97.6 99.7 97.6 Pulse 105 110 110 110 Resp 22 28 B/P (MAP) 139/84 (102) 136/81 (99) 136/81 136/81 Pulse Ox 95 98 O2 Delivery Room Air Room Air 06/10/18 08:33 Pulse 110 B/P (MAP) 136/81 Intake and Output 06/09/18 06/09/18 06/10/18 14:59 22:59 06:59 Intake Total 1000 ml 500 ml Output Total 475 ml Balance 1000 ml 25 ml ODESSA ESTRELLA MD Jun 10, 2018 09:19
--- NOTE | 2018-06-10 11:12 | PDOC ---
CARDIOLOGY PROGRESS NOTE SUBJECTIVE: Overnight went back to significant tachy at 180 bpm no chest pain fatigued OBJECTIVE: Vital SIgns: Vital Signs Date Time Temp Pulse Resp B/P (MAP) Pulse Ox O2 Delivery O2 Flow Rate FiO2 06/10/18 08:33 110 136/81 06/10/18 08:00 Nasal Cannula 06/10/18 07:20 97.6 28 98 97.6 06/09/18 21:20 2.0 I & O Intake and Output 06/10/18 07:00 Intake Total 1500 ml Output Total 475 ml Balance 1025 ml Intake Oral 1500 ml Output Urine Total 475 ml # Voids 2 Objective: Tachycardic Decreased breath sounds. Soft abd no LE edema. CURRENT MEDICATIONS: eliquis dig metoprolol lasix started DIAGNOSTIC TESTING: CTA negative LUE superficial thrombus ASSESSMENT: 1. NICM, decompensated HF 2. Atrial tachycardia PLAN: 1. Plan for lasix today. Increase metoprolol. 2. Discussed possibilty of BERTIN/CVN on tuesday if HR difficult to control. May need amio. Will monitor closely Thanks. RONI DUNN MD Jun 10, 2018 11:12
[2018-06-10] MEDS ORDERED: FUROSEMIDE 40 MG/4 ML VIAL. IVP ONE (11:15)
[2018-06-10 12:28] LABS: FECAL OB PT NEGATIVE (NEG)
[2018-06-10 12:45] LABS: BASO # 0.1 x10^3/uL (0.0-0.2); BASO % 1 % (0-3); EOS # 0.1 x10^3/uL (0.0-0.7); EOS % 0 % (0-3); HEMATOCRIT 51.5 % (39.0-53.0); HEMOGLOBIN 17.1 g/dL (13.0-17.5); LYMPH # 2.2 x10^3/uL (1.0-4.8); LYMPH % 14 % (24-48); MEAN CORPUSCULAR HEMOGLOBIN 30 pg (25-35); MEAN CORPUSCULAR HGB CONC 33 g/dL (31-37); MEAN CORPUSCULAR VOLUME 90 fL (79-100); MONO % 6 % (0-9); NEUT # 12.6 x10^3uL (1.8-7.7); NEUT % 79 % (31-73); PLATELET COUNT 188 x10^3/uL (140-400); RED BLOOD COUNT 5.69 x10^6/uL (4.30-5.70); RED CELL DISTRIBUTION WIDTH 15.7 % (11.5-14.5); WHITE BLOOD COUNT 16.1 x10^3/uL (4.0-11.0)
[2018-06-10 13:00] LABS: ALBUMIN 3.8 g/dL (3.4-5.0); ALBUMIN/GLOBULIN RATIO 1.1 (1.0-1.7); CALCIUM 8.7 mg/dL (8.5-10.1); CREATININE 1.1 mg/dL (0.7-1.3); GFR 78.1; TOTAL BILIRUBIN 1.7 mg/dL (0.2-1.0); TOTAL PROTEIN 7.3 g/dL (6.4-8.2)
[2018-06-10 13:24] LABS: % ATYL 3 % (0-0); % BANDS 3 % (0-9); % EOS 1 % (0-5); % LYMPHS 9 % (24-48); % MONOS 7 % (0-10); % SEGS 77 % (35-66)
[2018-06-10 13:25] LABS: PLT ESTIMATE ADEQUATE (ADEQUATE)
[2018-06-10 15:00] VITALS: BP 123/70
[2018-06-10 18:06] LABS: BILIRUBIN,URINE NEGATIVE (NEG); CLARITY,URINE CLEAR; COLOR,URINE STRAW; NITRITE,URINE NEGATIVE (NEG); PROTEIN,URINE NEGATIVE (NEG-TRACE); UROBILINOGEN,URINE 0.2 mg/dL (0.2 mg/dL)
[2018-06-10 18:08] LABS: BACTERIA,URINE 0 /HPF (0-FEW); RBC,URINE 0 /HPF (0-2); WBC,URINE 0 /HPF (0-4)
[2018-06-10 19:00] VITALS: BP 119/71
[2018-06-10] MEDS ORDERED: CALCIUM CARBONATE 500 MG TAB.CHEW PO PRN (20:15)
[2018-06-10 23:49] VITALS: BP 136/84
[2018-06-11] MEDS: METOPROLOL TART IMMED RELEASE 25 MG TABLET. PO SCH ×5 (00:39→23:01)
[2018-06-11 03:00] VITALS: BP 124/69
[2018-06-11 04:48] LABS: BASO # 0.1 x10^3/uL (0.0-0.2); BASO % 1 % (0-3); EOS # 0.1 x10^3/uL (0.0-0.7); EOS % 1 % (0-3); HEMATOCRIT 47.9 % (39.0-53.0); HEMOGLOBIN 15.5 g/dL (13.0-17.5); LYMPH % 16 % (24-48); MEAN CORPUSCULAR HEMOGLOBIN 29 pg (25-35); MEAN CORPUSCULAR HGB CONC 32 g/dL (31-37); MEAN CORPUSCULAR VOLUME 91 fL (79-100); MONO # 0.9 x10^3/uL (0.0-1.1); MONO % 7 % (0-9); NEUT # 9.5 x10^3uL (1.8-7.7); NEUT % 76 % (31-73); PLATELET COUNT 167 x10^3/uL (140-400); RED BLOOD COUNT 5.29 x10^6/uL (4.30-5.70); RED CELL DISTRIBUTION WIDTH 16.1 % (11.5-14.5); WHITE BLOOD COUNT 12.5 x10^3/uL (4.0-11.0)
[2018-06-11 05:05] LABS: ALBUMIN 3.2 g/dL (3.4-5.0); CALCIUM 8.5 mg/dL (8.5-10.1); CREATININE 0.9 mg/dL (0.7-1.3); GFR 98.4; POTASSIUM 3.8 mmol/L (3.5-5.1); TOTAL BILIRUBIN 1.6 mg/dL (0.2-1.0); TOTAL PROTEIN 6.4 g/dL (6.4-8.2)
[2018-06-11] MEDS: LEVOTHYROXINE 125 MCG TABLET PO SCH (05:37)
[2018-06-11] MEDS ORDERED: LEVOTHYROXINE 75 MCG TABLET PO SCH (06:00)
[2018-06-11] MEDS: FLUTICASONE 50MCG/NASAL SPRAY 16GM BOTTLE. NS SCH (06:00)
--- NOTE | 2018-06-11 06:26 | PDOC ---
PULMONARY PROGRESS NOTES Subjective rate better controlled, sob better, no cough, no cp Vitals Vital Signs Date Time Temp Pulse Resp B/P (MAP) Pulse Ox O2 Delivery O2 Flow Rate FiO2 06/11/18 05:38 88 124/69 06/11/18 03:00 97.7 20 94 Room Air 97.7 ROS: No Nausea, No Chest Pain General: Alert HEENT: Other (nc at perrl ) Lungs: Clear Cardiovascular: S1, S2 Abdomen: Soft, Non-tender Neuro Exam: Alert Extremities: No Edema Skin: Warm Labs Laboratory Tests Test 06/09/18 13:50 06/10/18 11:45 06/10/18 12:20 06/10/18 17:50 Prothrombin Time 15.6 SEC (11.7-14.0) Prothromb Time International Ratio 1.3 (0.8-1.1) Activated Partial Thromboplast Time 31 SEC (24-38) Stool Occult Blood Negative (NEG) White Blood Count 16.1 x10^3/uL (4.0-11.0) Red Blood Count 5.69 x10^6/uL (4.30-5.70) Hemoglobin 17.1 g/dL (13.0-17.5) Hematocrit 51.5 % (39.0-53.0) Mean Corpuscular Volume 90 fL (79-100) Mean Corpuscular Hemoglobin 30 pg (25-35) Mean Corpuscular Hemoglobin Concent 33 g/dL (31-37) Red Cell Distribution Width 15.7 % (11.5-14.5) Platelet Count 188 x10^3/uL (140-400) Neutrophils (%) (Auto) 79 % (31-73) Lymphocytes (%) (Auto) 14 % (24-48) Monocytes (%) (Auto) 6 % (0-9) Eosinophils (%) (Auto) 0 % (0-3) Basophils (%) (Auto) 1 % (0-3) Neutrophils # (Auto) 12.6 x10^3uL (1.8-7.7) Lymphocytes # (Auto) 2.2 x10^3/uL (1.0-4.8) Monocytes # (Auto) 1.0 x10^3/uL (0.0-1.1) Eosinophils # (Auto) 0.1 x10^3/uL (0.0-0.7) Basophils # (Auto) 0.1 x10^3/uL (0.0-0.2) Segmented Neutrophils % 77 % (35-66) Band Neutrophils % 3 % (0-9) Lymphocytes % 9 % (24-48) Atypical Lymphocytes % (Manual) 3 % (0-0) Monocytes % 7 % (0-10) Eosinophils % 1 % (0-5) Platelet Estimate Adequate (ADEQUATE) Large Platelets Occ Sodium Level 141 mmol/L (136-145) Potassium Level 4.0 mmol/L (3.5-5.1) Chloride Level 103 mmol/L (98-107) Carbon Dioxide Level 29 mmol/L (21-32) Anion Gap 9 (6-14) Blood Urea Nitrogen 10 mg/dL (8-26) Creatinine 1.1 mg/dL (0.7-1.3) Estimated GFR (Cockcroft-Gault) 78.1 BUN/Creatinine Ratio 9 (6-20) Glucose Level 80 mg/dL (70-99) Calcium Level 8.7 mg/dL (8.5-10.1) Total Bilirubin 1.7 mg/dL (0.2-1.0) Aspartate Amino Transf (AST/SGOT) 45 U/L (15-37) Alanine Aminotransferase (ALT/SGPT) 73 U/L (16-63) Alkaline Phosphatase 71 U/L (46-116) Total Protein 7.3 g/dL (6.4-8.2) Albumin 3.8 g/dL (3.4-5.0) Albumin/Globulin Ratio 1.1 (1.0-1.7) Urine Collection Type Unknown Urine Color Straw Urine Clarity Clear Urine pH 7.0 Urine Specific Cotton 1.010 Urine Protein Negative mg/dL (NEG-TRACE) Urine Glucose (UA) Negative mg/dL (NEG) Urine Ketones (Stick) Negative mg/dL (NEG) Urine Blood Negative (NEG) Urine Nitrite Negative (NEG) Urine Bilirubin Negative (NEG) Urine Urobilinogen Dipstick 0.2 mg/dL (0.2 mg/dL) Urine Leukocyte Esterase Negative (NEG) Urine RBC 0 /HPF (0-2) Urine WBC 0 /HPF (0-4) Urine Squamous Epithelial Cells None /LPF Urine Bacteria 0 /HPF (0-FEW) Test 06/11/18 04:30 White Blood Count 12.5 x10^3/uL (4.0-11.0) Red Blood Count 5.29 x10^6/uL (4.30-5.70) Hemoglobin 15.5 g/dL (13.0-17.5) Hematocrit 47.9 % (39.0-53.0) Mean Corpuscular Volume 91 fL (79-100) Mean Corpuscular Hemoglobin 29 pg (25-35) Mean Corpuscular Hemoglobin Concent 32 g/dL (31-37) Red Cell Distribution Width 16.1 % (11.5-14.5) Platelet Count 167 x10^3/uL (140-400) Neutrophils (%) (Auto) 76 % (31-73) Lymphocytes (%) (Auto) 16 % (24-48) Monocytes (%) (Auto) 7 % (0-9) Eosinophils (%) (Auto) 1 % (0-3) Basophils (%) (Auto) 1 % (0-3) Neutrophils # (Auto) 9.5 x10^3uL (1.8-7.7) Lymphocytes # (Auto) 2.0 x10^3/uL (1.0-4.8) Monocytes # (Auto) 0.9 x10^3/uL (0.0-1.1) Eosinophils # (Auto) 0.1 x10^3/uL (0.0-0.7) Basophils # (Auto) 0.1 x10^3/uL (0.0-0.2) Sodium Level 140 mmol/L (136-145) Potassium Level 3.8 mmol/L (3.5-5.1) Chloride Level 104 mmol/L (98-107) Carbon Dioxide Level 24 mmol/L (21-32) Anion Gap 12 (6-14) Blood Urea Nitrogen 9 mg/dL (8-26) Creatinine 0.9 mg/dL (0.7-1.3) Estimated GFR (Cockcroft-Gault) 98.4 BUN/Creatinine Ratio 10 (6-20) Glucose Level 84 mg/dL (70-99) Calcium Level 8.5 mg/dL (8.5-10.1) Total Bilirubin 1.6 mg/dL (0.2-1.0) Aspartate Amino Transf (AST/SGOT) 32 U/L (15-37) Alanine Aminotransferase (ALT/SGPT) 56 U/L (16-63) Alkaline Phosphatase 62 U/L (46-116) Total Protein 6.4 g/dL (6.4-8.2) Albumin 3.2 g/dL (3.4-5.0) Albumin/Globulin Ratio 1.0 (1.0-1.7) Laboratory Tests Test 06/10/18 11:45 06/10/18 12:20 06/10/18 17:50 06/11/18 04:30 Stool Occult Blood Negative (NEG) White Blood Count 16.1 x10^3/uL (4.0-11.0) 12.5 x10^3/uL (4.0-11.0) Red Blood Count 5.69 x10^6/uL (4.30-5.70) 5.29 x10^6/uL (4.30-5.70) Hemoglobin 17.1 g/dL (13.0-17.5) 15.5 g/dL (13.0-17.5) Hematocrit 51.5 % (39.0-53.0) 47.9 % (39.0-53.0) Mean Corpuscular Volume 90 fL (79-100) 91 fL (79-100) Mean Corpuscular Hemoglobin 30 pg (25-35) 29 pg (25-35) Mean Corpuscular Hemoglobin Concent 33 g/dL (31-37) 32 g/dL (31-37) Red Cell Distribution Width 15.7 % (11.5-14.5) 16.1 % (11.5-14.5) Platelet Count 188 x10^3/uL (140-400) 167 x10^3/uL (140-400) Neutrophils (%) (Auto) 79 % (31-73) 76 % (31-73) Lymphocytes (%) (Auto) 14 % (24-48) 16 % (24-48) Monocytes (%) (Auto) 6 % (0-9) 7 % (0-9) Eosinophils (%) (Auto) 0 % (0-3) 1 % (0-3) Basophils (%) (Auto) 1 % (0-3) 1 % (0-3) Neutrophils # (Auto) 12.6 x10^3uL (1.8-7.7) 9.5 x10^3uL (1.8-7.7) Lymphocytes # (Auto) 2.2 x10^3/uL (1.0-4.8) 2.0 x10^3/uL (1.0-4.8) Monocytes # (Auto) 1.0 x10^3/uL (0.0-1.1) 0.9 x10^3/uL (0.0-1.1) Eosinophils # (Auto) 0.1 x10^3/uL (0.0-0.7) 0.1 x10^3/uL (0.0-0.7) Basophils # (Auto) 0.1 x10^3/uL (0.0-0.2) 0.1 x10^3/uL (0.0-0.2) Segmented Neutrophils % 77 % (35-66) Band Neutrophils % 3 % (0-9) Lymphocytes % 9 % (24-48) Atypical Lymphocytes % (Manual) 3 % (0-0) Monocytes % 7 % (0-10) Eosinophils % 1 % (0-5) Platelet Estimate Adequate (ADEQUATE) Large Platelets Occ Sodium Level 141 mmol/L (136-145) 140 mmol/L (136-145) Potassium Level 4.0 mmol/L (3.5-5.1) 3.8 mmol/L (3.5-5.1) Chloride Level 103 mmol/L (98-107) 104 mmol/L (98-107) Carbon Dioxide Level 29 mmol/L (21-32) 24 mmol/L (21-32) Anion Gap 9 (6-14) 12 (6-14) Blood Urea Nitrogen 10 mg/dL (8-26) 9 mg/dL (8-26) Creatinine 1.1 mg/dL (0.7-1.3) 0.9 mg/dL (0.7-1.3) Estimated GFR (Cockcroft-Gault) 78.1 98.4 BUN/Creatinine Ratio 9 (6-20) 10 (6-20) Glucose Level 80 mg/dL (70-99) 84 mg/dL (70-99) Calcium Level 8.7 mg/dL (8.5-10.1) 8.5 mg/dL (8.5-10.1) Total Bilirubin 1.7 mg/dL (0.2-1.0) 1.6 mg/dL (0.2-1.0) Aspartate Amino Transf (AST/SGOT) 45 U/L (15-37) 32 U/L (15-37) Alanine Aminotransferase (ALT/SGPT) 73 U/L (16-63) 56 U/L (16-63) Alkaline Phosphatase 71 U/L (46-116) 62 U/L (46-116) Total Protein 7.3 g/dL (6.4-8.2) 6.4 g/dL (6.4-8.2) Albumin 3.8 g/dL (3.4-5.0) 3.2 g/dL (3.4-5.0) Albumin/Globulin Ratio 1.1 (1.0-1.7) 1.0 (1.0-1.7) Urine Collection Type Unknown Urine Color Straw Urine Clarity Clear Urine pH 7.0 Urine Specific Cotton 1.010 Urine Protein Negative mg/dL (NEG-TRACE) Urine Glucose (UA) Negative mg/dL (NEG) Urine Ketones (Stick) Negative mg/dL (NEG) Urine Blood Negative (NEG) Urine Nitrite Negative (NEG) Urine Bilirubin Negative (NEG) Urine Urobilinogen Dipstick 0.2 mg/dL (0.2 mg/dL) Urine Leukocyte Esterase Negative (NEG) Urine RBC 0 /HPF (0-2) Urine WBC 0 /HPF (0-4) Urine Squamous Epithelial Cells None /LPF Urine Bacteria 0 /HPF (0-FEW) Medications Active Scripts Medications Dose Route/Sig Max Daily Dose Days Date Category Loratadine 10 Mg Tablet 1 Tab PO DAILY 06/08/18 Reported Diltiazem 24Hr Cd (Diltiazem HCl) 240 Mg Cap.er.24h 240 Mg PO DAILY 06/08/18 Reported Levothyroxine Sodium 125 Mcg Tablet 1 Tab PO DAILY 06/08/18 Reported Fluticasone Propionate Nasal [place] (Fluticasone Propionate) 16 Gm Ch[place].susp 2 [place] NS DAILY 06/08/[address] 1. Moderate bilateral effusions. 2. Mild atelectasis in the lung bases. 3. No definite pulmonary embolus. Impression . IMPRESSION: 1. Dyspnea, likely related to atrial tachycardia and cardiomyopathy and sys chf. 2. NI Severe cardiomyopathy. ef 10-15%, cardiac cath, no sig cad 3. Atrial arrhythmias, needs electrophysiologic study. 4. Elevation in D-dimer is nonspecific, CTA chest, no pe. u ext superficial clot 5. obesity, eds, suspected obstructive sleep apnea. The patient's father reports gasping for air at night. He will benefit from outpatient sleep study. Plan . RECOMMENDATIONS: 1. oxygen titration. 2. cta reviewed, no pe, v q scan, low prob 3. anticoag per Cardiology. 4. quit smoking for ever 5. Recommend sleep study as an outpatient. 6. Follow Cardiology recommendation. lasix, metoprolol, monitor k, cr 7. psg out pt, reviewed overnight ox, suggestive of willian, dmitry sat 71%, below 80%, 8 min, below 90% over 1 hr, 02 qhs, need psg 6 min walk at discharge discussed w pt and rn CAMERON PLAZA MD Jun 11, 2018 06:26
[2018-06-11 07:18] VITALS: BP 145/78
[2018-06-11] MEDS: ANTI-COAG MONITOR BY PHARMACY. MC PRN (08:26)
[2018-06-11] MEDS: CETIRIZINE HCL 10 MG TABLET. PO SCH (08:43)
[2018-06-11] MEDS: APIXABAN 5 MG TABLET. PO SCH ×2 (08:43→21:00)
[2018-06-11] MEDS: FUROSEMIDE 40 MG/4 ML VIAL. IVP SCH (08:43)
[2018-06-11] MEDS: LISINOPRIL 5 MG TABLET. PO SCH (08:44)
[2018-06-11] MEDS: DIGOXIN 125 MCG TABLET. PO SCH (08:44)
--- NOTE | 2018-06-11 10:12 | PDOC ---
CARDIOLOGY PROGRESS NOTE SUBJECTIVE: No acute events today. Feels better. OBJECTIVE: Vital SIgns: Vital Signs Date Time Temp Pulse Resp B/P (MAP) Pulse Ox O2 Delivery O2 Flow Rate FiO2 06/11/18 08:44 107 145/78 06/11/18 07:18 97.9 18 98 Room Air 97.9 I & O Intake and Output 06/11/18 06:59 Intake Total 1500 ml Output Total 602 ml Balance 898 ml Intake Oral 1500 ml Output Urine Total 602 ml Objective: decreased breath sounds at the bases no edema tachycardic no new exam changes CURRENT MEDICATIONS: Current Medications Medications (Trade) Dose Ordered Sig/Yunior Start Time Stop Time Status Last Admin Dose Admin Acetaminophen/ Hydrocodone Bitart (Lortab 5/325) 1 tab PRN Q4HRS PRN 06/09/18 19:45 06/09/18 20:19 1 TAB Adenosine (Adenocard) 12 mg 1X ONCE 06/08/18 11:00 06/08/18 11:03 DC 06/08/18 10:36 12 MG Apixaban (Eliquis) 5 mg BID 06/10/18 21:00 06/11/18 08:43 5 MG Calcium Carbonate/ Glycine (Tums) 500 mg PRN AFTMEALHC PRN 06/10/18 20:15 06/10/18 20:37 500 MG Cetirizine HCl (ZyrTEC) 10 mg DAILY 06/09/18 09:00 06/11/18 08:43 10 MG Digoxin (Lanoxin) 500 mcg 1X ONCE 06/09/18 23:30 06/09/18 23:31 DC 06/09/18 23:47 500 MCG Diltiazem HCl (Cardizem Iv Push) 25 mg 1X ONCE 06/08/18 11:00 06/08/18 11:03 DC 06/08/18 10:39 25 MG Diltiazem HCl 125 mg/Dextrose 125 ml @ 5 mls/hr CONT PRN 06/09/18 10:45 06/09/18 11:58 DC Fentanyl Citrate (Fentanyl 2ml Vial) 100 mcg 1X ONCE 06/09/18 11:15 06/09/18 11:23 DC 06/09/18 11:15 75 MCG Fluticasone Propionate (Flonase) 2 spray DAILY 06/09/18 09:00 06/11/18 06:00 2 SPRAY Furosemide (Lasix) 40 mg DAILY 06/11/18 09:00 06/11/18 08:43 40 MG Heparin Sodium (Porcine) (Heparin Sodium) 2,500 unit 1X ONCE 06/09/18 11:15 06/09/18 11:23 DC 06/09/18 11:15 2,500 UNIT Heparin Sodium/ Dextrose 500 ml @ 0 mls/hr CONT PRN 06/09/18 10:30 06/09/18 15:34 DC Heparin Sodium/ Sodium Chloride (HEPARIN for ARTERIAL LINE FLUSH) 1,000 unit 1X ONCE 06/09/18 11:15 06/09/18 11:23 DC 06/09/18 11:15 1,000 UNIT Info (Anti-Coagulation Monitoring By Pharmacy) 1 each PRN DAILY PRN 06/09/18 16:00 06/11/18 08:26 1 EACH Info (CONTRAST GIVEN -- Rx MONITORING) 1 each PRN DAILY PRN 06/09/18 11:00 06/11/18 10:59 Iodixanol (Visipaque 320) 100 ml 1X ONCE 06/09/18 11:15 06/09/18 11:23 DC 06/09/18 11:15 66 ML Iohexol (Omnipaque 350 Mg/ml) 100 ml 1X ONCE 06/09/18 10:45 06/09/18 10:46 DC Levothyroxine Sodium (Synthroid) 75 mcg DAILY06 06/11/18 06:00 UNV Lidocaine HCl (Xylocaine-Mpf 1% 2ml Vial) 2 ml 1X ONCE 06/09/18 11:15 06/09/18 11:23 DC 06/09/18 11:15 1 ML Lisinopril (Prinivil) 2.5 mg DAILY 06/10/18 09:00 06/11/18 08:44 2.5 MG Metoprolol Tartrate (Lopressor Vial) 5 mg 1X ONCE 06/10/18 00:30 06/10/18 00:31 DC 06/10/18 00:25 5 MG Metoprolol Tartrate (Lopressor) 25 mg Q6HRS 06/10/18 14:00 06/11/18 05:38 25 MG Midazolam HCl (Versed) 2 mg 1X ONCE 06/09/18 11:15 06/09/18 11:23 DC 06/09/18 11:15 2 MG Nitroglycerin (Nitroglycerin) 200 mcg 1X ONCE 06/09/18 11:15 06/09/18 11:23 DC 06/09/18 11:15 200 MCG Nitroglycerin (Nitrostat) 0.4 mg PRN Q5MIN PRN 06/09/18 12:00 Sodium Chloride 1,000 ml @ 1,000 mls/hr Q1H 06/08/18 10:30 06/08/18 11:29 DC 06/08/18 10:35 1,000 MLS/HR Verapamil HCl (Verapamil) 2.5 mg 1X ONCE 06/09/18 11:15 06/09/18 11:23 DC 06/09/18 11:15 2.5 MG Zolpidem Tartrate (Ambien) 5 mg PRN QHS PRN 06/08/18 19:15 06/10/18 23:29 5 MG DIAGNOSTIC TESTING: Tele with atrial tachycardia at HR 150. Cr ok. ASSESSMENT: 1. Atrial tachy induced CMP PLAN: 1. Discussed CVN versus rate control with close outpt EP f/u. 2. If patient wishes to be discharged, home on Toprol XL 100mg daily, Dig 0.125mg daily, Lasix 40mg po daily, and lisinopril 2.5mg daily 3. f/u in our office in 1 week and f/u with EP next week (we will arrange, thx) . 4. If he decides to stay, will plan for BERTIN/CVN in a.m Thanks. RONI DUNN MD Jun 11, 2018 10:12
[2018-06-11 10:34] VITALS: BP 131/70
--- NOTE | 2018-06-11 11:23 | PDOC ---
PROGRESS NOTES History of Present Illness History of Present Illness Assessment/Plan Assessment/Plan impression 1. Parxysomal supraventricular tachycardia 2. morbid obesity 3. hx htn 4. possible GILBERT 5. elevated tsh with nl free T4 MAY REFLECT EARLY SUBCLINICAL HYPOTHYROID STATE 6. elevated d-dimer R/O PE 7. elevated hgb/hct 06/09 PT BECAME MORE soa/ FLUSHED THIS am D/W HOPE SALEH , d-dimer drawn, high STATES he has not felt well with fatigue since this Sunday 06/04 The left ventricular systolic function is severely impaired. The Ejection Fraction is 10-15%. Trace mitral regurgitation. Trace tricuspid regurgitation with an estimated PAP of 24 mmHg. There is no evidence of significant pericardial effusion. Signed by : Daniel Larson, Electronically Approved : 06/09/2018 07:46:13 06/10 RECURRENT TACHY LAST NIGHT HR 180, METOPROLOL DOSE INC PLANNING BERTIN TUESDAY, BLOOD FOR MARCI-2 mutation erythropoeitin level, heme consulT, pulm consult possible sleep apnea 06/11 BERTIN IN AM HGB BETTER WILL FOLLOW, IF polycythemia persists w/o needed as outpt oncology consult reviewed needs sleep study, needs off work for now due to severe cardiomyopathy PLAN monitor CVC ECHO REVIEWED T4 free ok tsh high, start synthroid low dose IV CARDIZEM CARDIOLOGY following MAY BENEFIT FROM POLYSOMONOGRAPHY OUT-PAT avoid ceffeine THYROID SONO, EVAL OUTPT PE PROTOCOL NEG 06/09, HEPARIN D/C, ON ELIQUIS MAY NEED EP study COMPLEX MEDICAL DECISION MAKING PER MY CHART REVIEW 42 min > 50% spent in pt care coordination, chart review pt exam Vitals Vitals Vital Signs Date Time Temp Pulse Resp B/P (MAP) Pulse Ox O2 Delivery O2 Flow Rate FiO2 06/11/18 10:34 98.0 85 20 131/70 (90) 97 Room Air 98.0 Physical Exam General: Alert, Oriented X3, Cooperative, No acute distress, Other (anxious, now on room air) Heart: Regular rate (atrial tach), Normal S1, Normal S2, No murmurs Lungs: Clear Abdomen: Normal bowel sounds, Soft, No tenderness Extremities: No clubbing, No cyanosis, No edema Skin: No breakdown, No significant lesion Labs LABS Laboratory Tests Test 06/10/18 11:45 06/10/18 12:20 06/10/18 17:50 06/11/18 04:30 Stool Occult Blood Negative (NEG) White Blood Count 16.1 x10^3/uL (4.0-11.0) 12.5 x10^3/uL (4.0-11.0) Red Blood Count 5.69 x10^6/uL (4.30-5.70) 5.29 x10^6/uL (4.30-5.70) Hemoglobin 17.1 g/dL (13.0-17.5) 15.5 g/dL (13.0-17.5) Hematocrit 51.5 % (39.0-53.0) 47.9 % (39.0-53.0) Mean Corpuscular Volume 90 fL (79-100) 91 fL (79-100) Mean Corpuscular Hemoglobin 30 pg (25-35) 29 pg (25-35) Mean Corpuscular Hemoglobin Concent 33 g/dL (31-37) 32 g/dL (31-37) Red Cell Distribution Width 15.7 % (11.5-14.5) 16.1 % (11.5-14.5) Platelet Count 188 x10^3/uL (140-400) 167 x10^3/uL (140-400) Neutrophils (%) (Auto) 79 % (31-73) 76 % (31-73) Lymphocytes (%) (Auto) 14 % (24-48) 16 % (24-48) Monocytes (%) (Auto) 6 % (0-9) 7 % (0-9) Eosinophils (%) (Auto) 0 % (0-3) 1 % (0-3) Basophils (%) (Auto) 1 % (0-3) 1 % (0-3) Neutrophils # (Auto) 12.6 x10^3uL (1.8-7.7) 9.5 x10^3uL (1.8-7.7) Lymphocytes # (Auto) 2.2 x10^3/uL (1.0-4.8) 2.0 x10^3/uL (1.0-4.8) Monocytes # (Auto) 1.0 x10^3/uL (0.0-1.1) 0.9 x10^3/uL (0.0-1.1) Eosinophils # (Auto) 0.1 x10^3/uL (0.0-0.7) 0.1 x10^3/uL (0.0-0.7) Basophils # (Auto) 0.1 x10^3/uL (0.0-0.2) 0.1 x10^3/uL (0.0-0.2) Segmented Neutrophils % 77 % (35-66) Band Neutrophils % 3 % (0-9) Lymphocytes % 9 % (24-48) Atypical Lymphocytes % (Manual) 3 % (0-0) Monocytes % 7 % (0-10) Eosinophils % 1 % (0-5) Platelet Estimate Adequate (ADEQUATE) Large Platelets Occ Sodium Level 141 mmol/L (136-145) 140 mmol/L (136-145) Potassium Level 4.0 mmol/L (3.5-5.1) 3.8 mmol/L (3.5-5.1) Chloride Level 103 mmol/L (98-107) 104 mmol/L (98-107) Carbon Dioxide Level 29 mmol/L (21-32) 24 mmol/L (21-32) Anion Gap 9 (6-14) 12 (6-14) Blood Urea Nitrogen 10 mg/dL (8-26) 9 mg/dL (8-26) Creatinine 1.1 mg/dL (0.7-1.3) 0.9 mg/dL (0.7-1.3) Estimated GFR (Cockcroft-Gault) 78.1 98.4 BUN/Creatinine Ratio 9 (6-20) 10 (6-20) Glucose Level 80 mg/dL (70-99) 84 mg/dL (70-99) Calcium Level 8.7 mg/dL (8.5-10.1) 8.5 mg/dL (8.5-10.1) Total Bilirubin 1.7 mg/dL (0.2-1.0) 1.6 mg/dL (0.2-1.0) Aspartate Amino Transf (AST/SGOT) 45 U/L (15-37) 32 U/L (15-37) Alanine Aminotransferase (ALT/SGPT) 73 U/L (16-63) 56 U/L (16-63) Alkaline Phosphatase 71 U/L (46-116) 62 U/L (46-116) Total Protein 7.3 g/dL (6.4-8.2) 6.4 g/dL (6.4-8.2) Albumin 3.8 g/dL (3.4-5.0) 3.2 g/dL (3.4-5.0) Albumin/Globulin Ratio 1.1 (1.0-1.7) 1.0 (1.0-1.7) Urine Collection Type Unknown Urine Color Straw Urine Clarity Clear Urine pH 7.0 Urine Specific [place] 1.010 Urine Protein Negative mg/dL (NEG-TRACE) Urine Glucose (UA) Negative mg/dL (NEG) Urine Ketones (Stick) Negative mg/dL (NEG) Urine Blood Negative (NEG) Urine Nitrite Negative (NEG) Urine Bilirubin Negative (NEG) Urine Urobilinogen Dipstick 0.2 mg/dL (0.2 mg/dL) Urine Leukocyte Esterase Negative (NEG) Urine RBC 0 /HPF (0-2) Urine WBC 0 /HPF (0-4) Urine Squamous Epithelial Cells None /LPF Urine Bacteria 0 /HPF (0-FEW) Test 06/11/18 08:03 Glucose (Fingerstick) 79 mg/dL (70-99) Assessment and Plan Assessmemt and Plan Problems Medical Problems: (1) Atrial tachycardia Status: Acute Comment Review of Relevant I have reviewed the following items [place] (where applicable) has been applied. Labs Laboratory Tests Test 06/09/18 13:50 06/10/18 11:45 06/10/18 12:20 06/10/18 17:50 Prothrombin Time 15.6 SEC (11.7-14.0) Prothromb Time International Ratio 1.3 (0.8-1.1) Activated Partial Thromboplast Time 31 SEC (24-38) Stool Occult Blood Negative (NEG) White Blood Count 16.1 x10^3/uL (4.0-11.0) Red Blood Count 5.69 x10^6/uL (4.30-5.70) Hemoglobin 17.1 g/dL (13.0-17.5) Hematocrit 51.5 % (39.0-53.0) Mean Corpuscular Volume 90 fL (79-100) Mean Corpuscular Hemoglobin 30 pg (25-35) Mean Corpuscular Hemoglobin Concent 33 g/dL (31-37) Red Cell Distribution Width 15.7 % (11.5-14.5) Platelet Count 188 x10^3/uL (140-400) Neutrophils (%) (Auto) 79 % (31-73) Lymphocytes (%) (Auto) 14 % (24-48) Monocytes (%) (Auto) 6 % (0-9) Eosinophils (%) (Auto) 0 % (0-3) Basophils (%) (Auto) 1 % (0-3) Neutrophils # (Auto) 12.6 x10^3uL (1.8-7.7) Lymphocytes # (Auto) 2.2 x10^3/uL (1.0-4.8) Monocytes # (Auto) 1.0 x10^3/uL (0.0-1.1) Eosinophils # (Auto) 0.1 x10^3/uL (0.0-0.7) Basophils # (Auto) 0.1 x10^3/uL (0.0-0.2) Segmented Neutrophils % 77 % (35-66) Band Neutrophils % 3 % (0-9) Lymphocytes % 9 % (24-48) Atypical Lymphocytes % (Manual) 3 % (0-0) Monocytes % 7 % (0-10) Eosinophils % 1 % (0-5) Platelet Estimate Adequate (ADEQUATE) Large Platelets Occ Sodium Level 141 mmol/L (136-145) Potassium Level 4.0 mmol/L (3.5-5.1) Chloride Level 103 mmol/L (98-107) Carbon Dioxide Level 29 mmol/L (21-32) Anion Gap 9 (6-14) Blood Urea Nitrogen 10 mg/dL (8-26) Creatinine 1.1 mg/dL (0.7-1.3) Estimated GFR (Cockcroft-Gault) 78.1 BUN/Creatinine Ratio 9 (6-20) Glucose Level 80 mg/dL (70-99) Calcium Level 8.7 mg/dL (8.5-10.1) Total Bilirubin 1.7 mg/dL (0.2-1.0) Aspartate Amino Transf (AST/SGOT) 45 U/L (15-37) Alanine Aminotransferase (ALT/SGPT) 73 U/L (16-63) Alkaline Phosphatase 71 U/L (46-116) Total Protein 7.3 g/dL (6.4-8.2) Albumin 3.8 g/dL (3.4-5.0) Albumin/Globulin Ratio 1.1 (1.0-1.7) Urine Collection Type Unknown Urine Color Straw Urine Clarity Clear Urine pH 7.0 Urine Specific [place] 1.010 Urine Protein Negative mg/dL (NEG-TRACE) Urine Glucose (UA) Negative mg/dL (NEG) Urine Ketones (Stick) Negative mg/dL (NEG) Urine Blood Negative (NEG) Urine Nitrite Negative (NEG) Urine Bilirubin Negative (NEG) Urine Urobilinogen Dipstick 0.2 mg/dL (0.2 mg/dL) Urine Leukocyte Esterase Negative (NEG) Urine RBC 0 /HPF (0-2) Urine WBC 0 /HPF (0-4) Urine Squamous Epithelial Cells None /LPF Urine Bacteria 0 /HPF (0-FEW) Test 06/11/18 04:30 06/11/18 08:03 White Blood Count 12.5 x10^3/uL (4.0-11.0) Red Blood Count 5.29 x10^6/uL (4.30-5.70) Hemoglobin 15.5 g/dL (13.0-17.5) Hematocrit 47.9 % (39.0-53.0) Mean Corpuscular Volume 91 fL (79-100) Mean Corpuscular Hemoglobin 29 pg (25-35) Mean Corpuscular Hemoglobin Concent 32 g/dL (31-37) Red Cell Distribution Width 16.1 % (11.5-14.5) Platelet Count 167 x10^3/uL (140-400) Neutrophils (%) (Auto) 76 % (31-73) Lymphocytes (%) (Auto) 16 % (24-48) Monocytes (%) (Auto) 7 % (0-9) Eosinophils (%) (Auto) 1 % (0-3) Basophils (%) (Auto) 1 % (0-3) Neutrophils # (Auto) 9.5 x10^3uL (1.8-7.7) Lymphocytes # (Auto) 2.0 x10^3/uL (1.0-4.8) Monocytes # (Auto) 0.9 x10^3/uL (0.0-1.1) Eosinophils # (Auto) 0.1 x10^3/uL (0.0-0.7) Basophils # (Auto) 0.1 x10^3/uL (0.0-0.2) Sodium Level 140 mmol/L (136-145) Potassium Level 3.8 mmol/L (3.5-5.1) Chloride Level 104 mmol/L (98-107) Carbon Dioxide Level 24 mmol/L (21-32) Anion Gap 12 (6-14) Blood Urea Nitrogen 9 mg/dL (8-26) Creatinine 0.9 mg/dL (0.7-1.3) Estimated GFR (Cockcroft-Gault) 98.4 BUN/Creatinine Ratio 10 (6-20) Glucose Level 84 mg/dL (70-99) Calcium Level 8.5 mg/dL (8.5-10.1) Total Bilirubin 1.6 mg/dL (0.2-1.0) Aspartate Amino Transf (AST/SGOT) 32 U/L (15-37) Alanine Aminotransferase (ALT/SGPT) 56 U/L (16-63) Alkaline Phosphatase 62 U/L (46-116) Total Protein 6.4 g/dL (6.4-8.2) Albumin 3.2 g/dL (3.4-5.0) Albumin/Globulin Ratio 1.0 (1.0-1.7) Glucose (Fingerstick) 79 mg/dL (70-99) Laboratory Tests Test 06/10/18 11:45 06/10/18 12:20 06/10/18 17:50 06/11/18 04:30 Stool Occult Blood Negative (NEG) White Blood Count 16.1 x10^3/uL (4.0-11.0) 12.5 x10^3/uL (4.0-11.0) Red Blood Count 5.69 x10^6/uL (4.30-5.70) 5.29 x10^6/uL (4.30-5.70) Hemoglobin 17.1 g/dL (13.0-17.5) 15.5 g/dL (13.0-17.5) Hematocrit 51.5 % (39.0-53.0) 47.9 % (39.0-53.0) Mean Corpuscular Volume 90 fL (79-100) 91 fL (79-100) Mean Corpuscular Hemoglobin 30 pg (25-35) 29 pg (25-35) Mean Corpuscular Hemoglobin Concent 33 g/dL (31-37) 32 g/dL (31-37) Red Cell Distribution Width 15.7 % (11.5-14.5) 16.1 % (11.5-14.5) Platelet Count 188 x10^3/uL (140-400) 167 x10^3/uL (140-400) Neutrophils (%) (Auto) 79 % (31-73) 76 % (31-73) Lymphocytes (%) (Auto) 14 % (24-48) 16 % (24-48) Monocytes (%) (Auto) 6 % (0-9) 7 % (0-9) Eosinophils (%) (Auto) 0 % (0-3) 1 % (0-3) Basophils (%) (Auto) 1 % (0-3) 1 % (0-3) Neutrophils # (Auto) 12.6 x10^3uL (1.8-7.7) 9.5 x10^3uL (1.8-7.7) Lymphocytes # (Auto) 2.2 x10^3/uL (1.0-4.8) 2.0 x10^3/uL (1.0-4.8) Monocytes # (Auto) 1.0 x10^3/uL (0.0-1.1) 0.9 x10^3/uL (0.0-1.1) Eosinophils # (Auto) 0.1 x10^3/uL (0.0-0.7) 0.1 x10^3/uL (0.0-0.7) Basophils # (Auto) 0.1 x10^3/uL (0.0-0.2) 0.1 x10^3/uL (0.0-0.2) Segmented Neutrophils % 77 % (35-66) Band Neutrophils % 3 % (0-9) Lymphocytes % 9 % (24-48) Atypical Lymphocytes % (Manual) 3 % (0-0) Monocytes % 7 % (0-10) Eosinophils % 1 % (0-5) Platelet Estimate Adequate (ADEQUATE) Large Platelets Occ Sodium Level 141 mmol/L (136-145) 140 mmol/L (136-145) Potassium Level 4.0 mmol/L (3.5-5.1) 3.8 mmol/L (3.5-5.1) Chloride Level 103 mmol/L (98-107) 104 mmol/L (98-107) Carbon Dioxide Level 29 mmol/L (21-32) 24 mmol/L (21-32) Anion Gap 9 (6-14) 12 (6-14) Blood Urea Nitrogen 10 mg/dL (8-26) 9 mg/dL (8-26) Creatinine 1.1 mg/dL (0.7-1.3) 0.9 mg/dL (0.7-1.3) Estimated GFR (Cockcroft-Gault) 78.1 98.4 BUN/Creatinine Ratio 9 (6-20) 10 (6-20) Glucose Level 80 mg/dL (70-99) 84 mg/dL (70-99) Calcium Level 8.7 mg/dL (8.5-10.1) 8.5 mg/dL (8.5-10.1) Total Bilirubin 1.7 mg/dL (0.2-1.0) 1.6 mg/dL (0.2-1.0) Aspartate Amino Transf (AST/SGOT) 45 U/L (15-37) 32 U/L (15-37) Alanine Aminotransferase (ALT/SGPT) 73 U/L (16-63) 56 U/L (16-63) Alkaline Phosphatase 71 U/L (46-116) 62 U/L (46-116) Total Protein 7.3 g/dL (6.4-8.2) 6.4 g/dL (6.4-8.2) Albumin 3.8 g/dL (3.4-5.0) 3.2 g/dL (3.4-5.0) Albumin/Globulin Ratio 1.1 (1.0-1.7) 1.0 (1.0-1.7) Urine Collection Type Unknown Urine Color Straw Urine Clarity Clear Urine pH 7.0 Urine Specific [place] 1.010 Urine Protein Negative mg/dL (NEG-TRACE) Urine Glucose (UA) Negative mg/dL (NEG) Urine Ketones (Stick) Negative mg/dL (NEG) Urine Blood Negative (NEG) Urine Nitrite Negative (NEG) Urine Bilirubin Negative (NEG) Urine Urobilinogen Dipstick 0.2 mg/dL (0.2 mg/dL) Urine Leukocyte Esterase Negative (NEG) Urine RBC 0 /HPF (0-2) Urine WBC 0 /HPF (0-4) Urine Squamous Epithelial Cells None /LPF Urine Bacteria 0 /HPF (0-FEW) Test 06/11/18 08:03 Glucose (Fingerstick) 79 mg/dL (70-99) Medications Current Medications Adenosine (Adenocard) 6 mg STK-MED ONCE IV ; Start 06/08/18 at 10:31; Stop 06/08 at 10:32; Status DC Diltiazem HCl (Cardizem Iv Push) 25 mg STK-MED ONCE .ROUTE ; Start 06/08/18 at 10:32; Stop 06/08/18 at 10:33; Status DC Adenosine (Adenocard) 12 mg 1X ONCE IV Last administered on 06/08/18at 10:36; Start 06/08/18 at 11:00; Stop 06/08/18 at 11:03; Status DC Sodium Chloride 1,000 ml @ 1,000 mls/hr Q1H IV Last administered on 06/08/18at 10:35; Start 06/08/18 at 10:30; Stop 06/08/18 at 11:29; Status DC Diltiazem HCl (Cardizem Iv Push) 25 mg 1X ONCE IVP Last administered on at 10:39; Start 06/08/18 at 11:00; Stop 06/08/18 at 11:03; Status DC Diltiazem HCl 125 mg/Dextrose 125 ml @ 5 mls/hr CONT PRN IV SEE I/O RECORD Last administered on 06/09/18at 03:04; Start 06/08/18 at 11:00; Stop 06/09/18 at 10:32; Status DC Fluticasone Propionate (Flonase) 2 spray DAILY NS Last administered on at 06:00; Start 06/09/18 at 09:00 Levothyroxine Sodium (Synthroid) 125 mcg DAILY06 PO Last administered on at 05:37; Start 06/09/18 at 06:00 Cetirizine HCl (ZyrTEC) 10 mg DAILY PO Last administered on 06/11/18at 08:43; Start 06/09/18 at 09:00 Zolpidem Tartrate (Ambien) 5 mg PRN QHS PRN PO INSOMNIA, MAY REPEAT IN 1HR Last administered on 06/10/18at 23:29; Start 06/08/18 at 19:15 Metoprolol Tartrate (Lopressor) 25 mg Q6HRS PO ; Start 06/09/18 at 12:00; Stop 06/09/18 at 12:00; Status DC Iohexol (Omnipaque 350 Mg/ml) 100 ml 1X ONCE IV ; Start 06/09/18 at 10:45; Stop 06/09/18 at 10:46; Status DC Heparin Sodium/ Dextrose 500 ml @ 0 mls/hr CONT PRN IV SEE I/O RECORD; Start at 10:30; Stop 06/09/18 at 15:34; Status DC Heparin Sodium (Porcine) (Heparin Sodium) 3,750 unit PRN Q6HRS PRN IV FOR UFH LEVEL LESS THAN 0.2; Start 06/09/18 at 10:30; Stop 06/09/18 at 15:35; Status DC Heparin Sodium (Porcine) (Heparin Sodium) 1,850 unit PRN Q6HRS PRN IV FOR UFH LEVEL 0.2 - 0.29; Start 06/09/18 at 10:30; Stop 06/09/18 at 15:35; Status DC Diltiazem HCl 125 mg/Dextrose 125 ml @ 5 mls/hr CONT PRN IV SEE I/O RECORD; Start 06/09/18 at 10:45; Stop 06/09/18 at 11:58; Status DC Info (CONTRAST GIVEN -- Rx MONITORING) 1 each PRN DAILY PRN MC SEE COMMENTS; Start 06/09/18 at 11:00; Stop 06/11/18 at 10:59; Status DC Iodixanol (Visipaque 320) 100 ml STK-MED ONCE .ROUTE ; Start 06/09/18 at 11:00; Stop 06/09/18 at 11:01; Status DC Lidocaine HCl (Xylocaine-Mpf 1% 2ml Vial) 2 ml STK-MED ONCE .ROUTE ; Start 06/09 at 11:00; Stop 06/09/18 at 11:01; Status DC Heparin Sodium/ Sodium Chloride 500 ml @ As Directed STK-MED ONCE .ROUTE ; Start 06/09/18 at 11:00; Stop 06/09/18 at 11:01; Status DC Fentanyl Citrate (Fentanyl 2ml Vial) 100 mcg STK-MED ONCE .ROUTE ; Start at 11:15; Stop 06/09/18 at 11:16; Status DC Midazolam HCl (Versed) 2 mg STK-MED ONCE .ROUTE ; Start 06/09/18 at 11:15; Stop 06/09/18 at 11:16; Status DC Heparin Sodium (Porcine) (Heparin Sodium) 10,000 unit STK-MED ONCE .ROUTE ; Start 06/09/18 at 11:15; Stop 06/09/18 at 11:16; Status DC Verapamil HCl (Verapamil) 5 mg STK-MED ONCE .ROUTE ; Start 06/09/18 at 11:15; Stop 06/09/18 at 11:16; Status DC Nitroglycerin (Nitroglycerin) 200 mcg STK-MED ONCE .ROUTE ; Start 06/09/18 at 11 :15; Stop 06/09/18 at 11:16; Status DC Nitroglycerin (Nitroglycerin) 200 mcg 1X ONCE IART Last administered on at 11:15; Start 06/09/18 at 11:15; Stop 06/09/18 at 11:23; Status DC Verapamil HCl (Verapamil) 2.5 mg 1X ONCE IART Last administered on 06/09/18at 11:15; Start 06/09/18 at 11:15; Stop 06/09/18 at 11:23; Status DC Heparin Sodium (Porcine) (Heparin Sodium) 2,500 unit 1X ONCE IART Last administered on 06/09/18at 11:15; Start 06/09/18 at 11:15; Stop 06/09/18 at 11:23 ; Status DC Heparin Sodium/ Sodium Chloride (HEPARIN for ARTERIAL LINE FLUSH) 1,000 unit 1X ONCE IART Last administered on 06/09/18at 11:15; Start 06/09/18 at 11:15; Stop 06/09/18 at 11:23; Status DC Midazolam HCl (Versed) 2 mg 1X ONCE IV Last administered on 06/09/18at 11:15; Start 06/09/18 at 11:15; Stop 06/09/18 at 11:23; Status DC Fentanyl Citrate (Fentanyl 2ml Vial) 100 mcg 1X ONCE IV Last administered on at 11:15; Start 06/09/18 at 11:15; Stop 06/09/18 at 11:23; Status DC Iodixanol (Visipaque 320) 100 ml 1X ONCE IART Last administered on 06/09/18at 11:15; Start 06/09/18 at 11:15; Stop 06/09/18 at 11:23; Status DC Lidocaine HCl (Xylocaine-Mpf 1% 2ml Vial) 2 ml 1X ONCE INJ Last administered on 06/09/18 11:15; Start 06/09/18 at 11:15; Stop 06/09/18 at 11:23; Status DC Nitroglycerin (Nitrostat) 0.4 mg PRN Q5MIN PRN SL CHEST PAIN; Start 06/09/18 at 12:00 Metoprolol Tartrate (Lopressor) 25 mg BID PO Last administered on 06/10/18 08: 32; Start 06/09/18 at 21:00; Stop 06/10/18 at 11:06; Status DC Digoxin (Lanoxin) 500 mcg 1X ONCE IV Last administered on 06/09/18at 14:23; Start 06/09/18 at 12:00; Stop 06/09/18 at 12:01; Status DC Digoxin (Lanoxin) 125 mcg DAILY PO Last administered on 06/11/18 08:44; Start 06/10/18 at 09:00 Lisinopril (Prinivil) 2.5 mg DAILY PO Last administered on 06/11/18at 08:44; Start 06/10/18 at 09:00 Apixaban (Eliquis) 5 mg BID PO ; Start 06/09/18 at 21:00; Stop 06/09/18 at 21:00 ; Status DC Apixaban (Eliquis) 10 mg BID PO Last administered on 06/10/18at 08:34; Start at 17:00; Stop 06/10/18 at 10:45; Status DC Metoprolol Tartrate (Lopressor) 25 mg 1X ONCE PO Last administered on at 15:51; Start 06/09/18 at 15:45; Stop 06/09/18 at 15:46; Status DC Info (Anti-Coagulation Monitoring By Pharmacy) 1 each PRN DAILY PRN MC SEE COMMENTS Last administered on 06/11/18 08:26; Start 06/09/18 at 16:00 Acetaminophen/ Hydrocodone Bitart (Lortab 5/325) 1 tab PRN Q4HRS PRN PO PAIN Last administered on 06/09/18 20:19; Start 06/09/18 at 19:45 Digoxin (Lanoxin) 500 mcg 1X ONCE IV Last administered on 06/09/18 23:47; Start 06/09/18 at 23:30; Stop 06/09/18 at 23:31; Status DC Metoprolol Tartrate (Lopressor Vial) 5 mg 1X ONCE IVP Last administered on 23:40; Start 06/09/18 at 23:30; Stop 06/09/18 at 23:31; Status DC Metoprolol Tartrate (Lopressor Vial) 5 mg 1X ONCE IVP Last administered on 00:25; Start 06/10/18 at 00:30; Stop 06/10/18 at 00:31; Status DC Apixaban (Eliquis) 5 mg BID PO Last administered on 06/11/18 08:43; Start at 21:00 Furosemide (Lasix) 40 mg 1X ONCE IVP Last administered on 06/10/18 11:43; Start 06/10/18 at 11:15; Stop 06/10/18 at 11:16; Status DC Furosemide (Lasix) 40 mg DAILY IVP Last administered on 06/11/18 08:43; Start 06/11/18 at 09:00 Metoprolol Tartrate (Lopressor) 25 mg Q6HRS PO Last administered on 06/11/18at 05:38; Start 06/10/18 at 14:00 Levothyroxine Sodium (Synthroid) 75 mcg DAILY06 PO ; Start 06/11/18 at 06:00; Status UNV Calcium Carbonate/ Glycine (Tums) 500 mg PRN AFTMEALHC PRN PO INDIGESTION Last administered on 06/10/18at 20:37; Start 06/10/18 at 20:15 Active Scripts Active Reported Loratadine 10 Mg Tablet 1 Tab PO DAILY Diltiazem 24Hr Cd (Diltiazem HCl) 240 Mg Cap.er.24h 240 Mg PO DAILY Levothyroxine Sodium 125 Mcg Tablet 1 Tab PO DAILY Fluticasone Propionate Nasal [place] (Fluticasone Propionate) 16 Gm [place].susp 2 [place] NS DAILY Vitals/I & O Vital Sign - Last 24 Hours 06/10/18 06/10/18 06/10/18 06/10/18 13:43 15:00 18:40 19:00 Temp 98.2 97.5 98.2 97.5 Pulse 109 78 80 61 Resp 18 18 B/P (MAP) 132/71 123/70 (87) 119/71 119/71 (87) Pulse Ox 95 97 O2 Delivery Room Air Room Air 06/10/18 06/10/18 06/11/18 06/11/18 20:00 23:49 00:39 03:00 Temp 97.9 97.7 97.9 97.7 Pulse 78 96 86 Resp 20 20 B/P (MAP) 136/84 (101) 136/84 124/69 (87) Pulse Ox 92 94 O2 Delivery Room Air Room Air Room Air 06/11/18 06/11/18 06/11/18 06/11/18 05:38 07:18 08:00 08:44 Temp 97.9 97.9 Pulse 88 107 107 Resp 18 B/P (MAP) 124/69 145/78 (100) 145/78 Pulse Ox 98 O2 Delivery Room Air Room Air 06/11/18 06/11/18 08:44 10:34 Temp 98.0 98.0 Pulse 107 85 Resp 20 B/P (MAP) 145/78 131/70 (90) Pulse Ox 97 O2 Delivery Room Air Intake and Output 06/10/18 06/10/18 06/11/18 14:59 22:59 06:59 Intake Total 800 ml 700 ml Output Total 600 ml 2 ml Balance 200 ml 698 ml ODESSA ESTRELLA MD Jun 11, 2018 11:23
--- NOTE | 2018-06-11 11:52 | PDOC2 ---
CONSULT Date of Consult Date of Consult DATE: 06/11/18 TIME: 11:44 Reason for Consult Reason for Consult: Possible Polycythemia Referring Physician Referring Physician: Fullbright Source Source: Chart review, Patient History of Present Illness Reason for Visit: 32 yo male who presented to the hospital after being found to very tachycardic in PCP office. He was started on cardizem initially and had an echo that showed ef 10-15 %. Cardiac cath did not show any abnormalities. He was switched to toprol and may undergo a cardioversion in the near future. I was consulted for possible polycythemia. He states that he snores alot and does not sleep well at night. He also smokes 2 packs per week for at least the last few years. 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 Prior to admission, he was tired and fatigued, with sob. He denies any sick contacts at home Past Medical History Cardiovascular: HTN, Other (palpitations) Pulmonary: Asthma CENTRAL NERVOUS SYSTEM: Other (No pertinent history) GI: No pertinent hx Heme/Onc: No pertinent hx Hepatobiliary: No pertinent hx Psych: No pertinent hx Musculoskeletal: Other (None) Infectious disease: No pertinent hx ENT: Allergic Rhinitis Renal/: No pertinent hx Endocrine: Hypothyroidism, Other (hypglycemia) Dermatology: No pertinent hx Past Surgical History Past Surgical History: No pertinent history Family History Family History: Hypertension Social History <1 pack per day ALCOHOL: occassional Drugs: None Lives: Alone Current Problem List Problem List Problems Medical Problems: (1) Atrial tachycardia Status: Acute Current Medications Current Medications Current Medications Adenosine (Adenocard) 6 mg STK-MED ONCE IV ; Start 06/08/18 at 10:31; Stop 06/08 at 10:32; Status DC Diltiazem HCl (Cardizem Iv Push) 25 mg STK-MED ONCE .ROUTE ; Start 06/08/18 at 10:32; Stop 06/08/18 at 10:33; Status DC Adenosine (Adenocard) 12 mg 1X ONCE IV Last administered on 06/08/18at 10:36; Start 06/08/18 at 11:00; Stop 06/08/18 at 11:03; Status DC Sodium Chloride 1,000 ml @ 1,000 mls/hr Q1H IV Last administered on 06/08/18at 10:35; Start 06/08/18 at 10:30; Stop 06/08/18 at 11:29; Status DC Diltiazem HCl (Cardizem Iv Push) 25 mg 1X ONCE IVP Last administered on at 10:39; Start 06/08/18 at 11:00; Stop 06/08/18 at 11:03; Status DC Diltiazem HCl 125 mg/Dextrose 125 ml @ 5 mls/hr CONT PRN IV SEE I/O RECORD Last administered on 06/09/18at 03:04; Start 06/08/18 at 11:00; Stop 06/09/18 at 10:32; Status DC Fluticasone Propionate (Flonase) 2 spray DAILY NS Last administered on at 06:00; Start 06/09/18 at 09:00 Levothyroxine Sodium (Synthroid) 125 mcg DAILY06 PO Last administered on at 05:37; Start 06/09/18 at 06:00 Cetirizine HCl (ZyrTEC) 10 mg DAILY PO Last administered on 06/11/18at 08:43; Start 06/09/18 at 09:00 Zolpidem Tartrate (Ambien) 5 mg PRN QHS PRN PO INSOMNIA, MAY REPEAT IN 1HR Last administered on 06/10/18at 23:29; Start 06/08/18 at 19:15 Metoprolol Tartrate (Lopressor) 25 mg Q6HRS PO ; Start 06/09/18 at 12:00; Stop 06/09/18 at 12:00; Status DC Iohexol (Omnipaque 350 Mg/ml) 100 ml 1X ONCE IV ; Start 06/09/18 at 10:45; Stop 06/09/18 at 10:46; Status DC Heparin Sodium/ Dextrose 500 ml @ 0 mls/hr CONT PRN IV SEE I/O RECORD; Start at 10:30; Stop 06/09/18 at 15:34; Status DC Heparin Sodium (Porcine) (Heparin Sodium) 3,750 unit PRN Q6HRS PRN IV FOR UFH LEVEL LESS THAN 0.2; Start 06/09/18 at 10:30; Stop 06/09/18 at 15:35; Status DC Heparin Sodium (Porcine) (Heparin Sodium) 1,850 unit PRN Q6HRS PRN IV FOR UFH LEVEL 0.2 - 0.29; Start 06/09/18 at 10:30; Stop 06/09/18 at 15:35; Status DC Diltiazem HCl 125 mg/Dextrose 125 ml @ 5 mls/hr CONT PRN IV SEE I/O RECORD; Start 06/09/18 at 10:45; Stop 06/09/18 at 11:58; Status DC Info (CONTRAST GIVEN -- Rx MONITORING) 1 each PRN DAILY PRN MC SEE COMMENTS; Start 06/09/18 at 11:00; Stop 06/11/18 at 10:59; Status DC Iodixanol (Visipaque 320) 100 ml STK-MED ONCE .ROUTE ; Start 06/09/18 at 11:00; Stop 06/09/18 at 11:01; Status DC Lidocaine HCl (Xylocaine-Mpf 1% 2ml Vial) 2 ml STK-MED ONCE .ROUTE ; Start 06/09 at 11:00; Stop 06/09/18 at 11:01; Status DC Heparin Sodium/ Sodium Chloride 500 ml @ As Directed STK-MED ONCE .ROUTE ; Start 06/09/18 at 11:00; Stop 06/09/18 at 11:01; Status DC Fentanyl Citrate (Fentanyl 2ml Vial) 100 mcg STK-MED ONCE .ROUTE ; Start at 11:15; Stop 06/09/18 at 11:16; Status DC Midazolam HCl (Versed) 2 mg STK-MED ONCE .ROUTE ; Start 06/09/18 at 11:15; Stop 06/09/18 at 11:16; Status DC Heparin Sodium (Porcine) (Heparin Sodium) 10,000 unit STK-MED ONCE .ROUTE ; Start 06/09/18 at 11:15; Stop 06/09/18 at 11:16; Status DC Verapamil HCl (Verapamil) 5 mg STK-MED ONCE .ROUTE ; Start 06/09/18 at 11:15; Stop 06/09/18 at 11:16; Status DC Nitroglycerin (Nitroglycerin) 200 mcg STK-MED ONCE .ROUTE ; Start 06/09/18 at 11 :15; Stop 06/09/18 at 11:16; Status DC Nitroglycerin (Nitroglycerin) 200 mcg 1X ONCE IART Last administered on 11:15; Start 06/09/18 at 11:15; Stop 06/09/18 at 11:23; Status DC Verapamil HCl (Verapamil) 2.5 mg 1X ONCE IART Last administered on 06/09/18 11:15; Start 06/09/18 at 11:15; Stop 06/09/18 at 11:23; Status DC Heparin Sodium (Porcine) (Heparin Sodium) 2,500 unit 1X ONCE IART Last administered on 06/09/18 11:15; Start 06/09/18 at 11:15; Stop 06/09/18 at 11:23 ; Status DC Heparin Sodium/ Sodium Chloride (HEPARIN for ARTERIAL LINE FLUSH) 1,000 unit 1X ONCE IART Last administered on 06/09/18 11:15; Start 06/09/18 at 11:15; Stop 06/09/18 at 11:23; Status DC Midazolam HCl (Versed) 2 mg 1X ONCE IV Last administered on 06/09/18 11:15; Start 06/09/18 at 11:15; Stop 06/09/18 at 11:23; Status DC Fentanyl Citrate (Fentanyl 2ml Vial) 100 mcg 1X ONCE IV Last administered on 11:15; Start 06/09/18 at 11:15; Stop 06/09/18 at 11:23; Status DC Iodixanol (Visipaque 320) 100 ml 1X ONCE IART Last administered on 06/09/18 11:15; Start 06/09/18 at 11:15; Stop 06/09/18 at 11:23; Status DC Lidocaine HCl (Xylocaine-Mpf 1% 2ml Vial) 2 ml 1X ONCE INJ Last administered on 06/09/18 11:15; Start 06/09/18 at 11:15; Stop 06/09/18 at 11:23; Status DC Nitroglycerin (Nitrostat) 0.4 mg PRN Q5MIN PRN SL CHEST PAIN; Start 06/09/18 at 12:00 Metoprolol Tartrate (Lopressor) 25 mg BID PO Last administered on 06/10/18 08: 32; Start 06/09/18 at 21:00; Stop 06/10/18 at 11:06; Status DC Digoxin (Lanoxin) 500 mcg 1X ONCE IV Last administered on 3/15/19at 14:23; Start 06/09/18 at 12:00; Stop 06/09/18 at 12:01; Status DC Digoxin (Lanoxin) 125 mcg DAILY PO Last administered on 06/11/18at 08:44; Start 06/10/18 at 09:00 Lisinopril (Prinivil) 2.5 mg DAILY PO Last administered on 06/11/18at 08:44; Start 06/10/18 at 09:00 Apixaban (Eliquis) 5 mg BID PO ; Start 06/09/18 at 21:00; Stop 06/09/18 at 21:00 ; Status DC Apixaban (Eliquis) 10 mg BID PO Last administered on 06/10/18at 08:34; Start at 17:00; Stop 06/10/18 at 10:45; Status DC Metoprolol Tartrate (Lopressor) 25 mg 1X ONCE PO Last administered on at 15:51; Start 06/09/18 at 15:45; Stop 06/09/18 at 15:46; Status DC Info (Anti-Coagulation Monitoring By Pharmacy) 1 each PRN DAILY PRN MC SEE COMMENTS Last administered on 06/11/18at 08:26; Start 06/09/18 at 16:00 Acetaminophen/ Hydrocodone Bitart (Lortab 5/325) 1 tab PRN Q4HRS PRN PO PAIN Last administered on 06/09/18 20:19; Start 06/09/18 at 19:45 Digoxin (Lanoxin) 500 mcg 1X ONCE IV Last administered on 06/09/18 23:47; Start 06/09/18 at 23:30; Stop 06/09/18 at 23:31; Status DC Metoprolol Tartrate (Lopressor Vial) 5 mg 1X ONCE IVP Last administered on at 23:40; Start 06/09/18 at 23:30; Stop 06/09/18 at 23:31; Status DC Metoprolol Tartrate (Lopressor Vial) 5 mg 1X ONCE IVP Last administered on at 00:25; Start 06/10/18 at 00:30; Stop 06/10/18 at 00:31; Status DC Apixaban (Eliquis) 5 mg BID PO Last administered on 06/11/18at 08:43; Start at 21:00 Furosemide (Lasix) 40 mg 1X ONCE IVP Last administered on 06/10/18at 11:43; Start 06/10/18 at 11:15; Stop 06/10/18 at 11:16; Status DC Furosemide (Lasix) 40 mg DAILY IVP Last administered on 06/11/18at 08:43; Start 06/11/18 at 09:00 Metoprolol Tartrate (Lopressor) 25 mg Q6HRS PO Last administered on 06/11/18at 11:36; Start 06/10/18 at 14:00 Levothyroxine Sodium (Synthroid) 75 mcg DAILY06 PO ; Start 06/11/18 at 06:00; Status UNV Calcium Carbonate/ Glycine (Tums) 500 mg PRN AFTMEALHC PRN PO INDIGESTION Last administered on 06/10/18at 20:37; Start 06/10/18 at 20:15 Active Scripts Active Reported Loratadine 10 Mg Tablet 1 Tab PO DAILY Diltiazem 24Hr Cd (Diltiazem HCl) 240 Mg Cap.er.24h 240 Mg PO DAILY Levothyroxine Sodium 125 Mcg Tablet 1 Tab PO DAILY Fluticasone Propionate Nasal [place] (Fluticasone Propionate) 16 Gm [place].susp 2 [place] NS DAILY Allergies Allergies: Coded Allergies: [email or web address] (Verified Allergy, Intermediate, 06/08/18) ROS General: YES: Fatigue PSYCHOLOGICAL ROS: No: Anxiety, Behavioral Disorder, Concentration difficultie , Decreased libido, Depression, Disorientation, Hallucinations, Hostility, Irritablity, Memory difficulties, Mood Swings, Obsessive thoughts, Physical abuse, Sexual abuse, Sleep disturbances, Suicidal ideation, Other Eyes: No Blurry vision, No Decreased vision, No Double vision, No Dry eyes, No Excessive tearing, No Eye Pain, No Itchy Eyes, No Loss of vision, No Photophobia , No Scotomata, No Uses contacts, No Uses glasses, No Other HEENT: No: Heacaches, Visual Changes, Hearing change, Nasal congestion, Nasal discharge, Oral lesions, Sinus pain, Sore Throat, Epistaxis, Sneezing, Snoring, Tinnitus, Vertigo, Vocal changes, Other ALLERGY AND IMMUNOLOGY: No: Hives, Insect Bite Sensitivity, Itchy/Watery Eyes, Nasal Congestion, Post Nasal Drip, Seasonal Allergies, Other Hematological and Lymphatic: No: Bleeding Problems, Blood Clots, Blood Transfusions, Brusing, Night Sweats, Pallor, Swollen Lymph Nodes, Other ENDOCRINE: No: Breast Changes, Galactorrhea, Hair Pattern Changes, Hot Flashes , Malaise/lethargy, Mood Swings, Palpitations, Polydipsia/polyuria, Skin Changes , Temperature Intolerance, Unexpected Weight Changes, Other Breast: No New/Changing Breast Lumps, No Nipple changes, No Nipple discharge, No Other Respiratory: YES: SOB with excertion Cardiovascular: yes Palpitations, yes Lt Headedness Gastrointestinal: No Nausea, No Vomiting, No Abdominal Pain, No Diarrhea, No Constipation, No Melena, No Hematochezia, No Other Genitourinary: No Dysuria, No Frequency, No Incontinence, No Hematuria, No Retention, No Discharge, No Urgency, No Pain, No Flank Pain, No Other, No , No , No , No , No , No , No Musculoskeletal: No Gait Disturbance, No Joint Pain, No Joint Stiffness, No Joint Swelling, No Muscle Pain, No Muscular Weakness, No Pain In:, No Swelling In:, No Other Neurological: No Behavorial Changes, No Bowel/Bladder ControlChng, No Confusion , No Dizziness, No Gait Disturbance, No Headaches, No Impaired Coord/balance, No Memory Loss, No Numbness/Tingling, No Seizures, No Speech Problems, No Tremors, No Visual Changes, No Weakness, No Other Skin: No Dry Skin, No Eczema, No Hair Changes, No Lumps, No Mole Changes, No Mottling, No Nail Changes, No Pruritus, No Rash, No Skin Lesion Changes, No Other, No Acne Physical Exam General: Alert, Oriented X3, Cooperative HEENT: Atraumatic, PERRLA Lungs: Clear to auscultation, Normal air movement Heart: Regular rate, Normal S1, Normal S2 Abdomen: Normal bowel sounds, Soft Extremities: No clubbing, No cyanosis Skin: No rashes Psych/Mental Status: Mental status NL Vitals VITALS Vital Signs Date Time Temp Pulse Resp B/P (MAP) Pulse Ox O2 Delivery O2 Flow Rate FiO2 06/11/18 11:36 85 131/70 06/11/18 10:34 98.0 20 97 Room Air 98.0 Labs Labs Laboratory Tests Test 06/09/18 13:50 06/10/18 11:45 06/10/18 12:20 06/10/18 17:50 Prothrombin Time 15.6 SEC (11.7-14.0) Prothromb Time International Ratio 1.3 (0.8-1.1) Activated Partial Thromboplast Time 31 SEC (24-38) Stool Occult Blood Negative (NEG) White Blood Count 16.1 x10^3/uL (4.0-11.0) Red Blood Count 5.69 x10^6/uL (4.30-5.70) Hemoglobin 17.1 g/dL (13.0-17.5) Hematocrit 51.5 % (39.0-53.0) Mean Corpuscular Volume 90 fL (79-100) Mean Corpuscular Hemoglobin 30 pg (25-35) Mean Corpuscular Hemoglobin Concent 33 g/dL (31-37) Red Cell Distribution Width 15.7 % (11.5-14.5) Platelet Count 188 x10^3/uL (140-400) Neutrophils (%) (Auto) 79 % (31-73) Lymphocytes (%) (Auto) 14 % (24-48) Monocytes (%) (Auto) 6 % (0-9) Eosinophils (%) (Auto) 0 % (0-3) Basophils (%) (Auto) 1 % (0-3) Neutrophils # (Auto) 12.6 x10^3uL (1.8-7.7) Lymphocytes # (Auto) 2.2 x10^3/uL (1.0-4.8) Monocytes # (Auto) 1.0 x10^3/uL (0.0-1.1) Eosinophils # (Auto) 0.1 x10^3/uL (0.0-0.7) Basophils # (Auto) 0.1 x10^3/uL (0.0-0.2) Segmented Neutrophils % 77 % (35-66) Band Neutrophils % 3 % (0-9) Lymphocytes % 9 % (24-48) Atypical Lymphocytes % (Manual) 3 % (0-0) Monocytes % 7 % (0-10) Eosinophils % 1 % (0-5) Platelet Estimate Adequate (ADEQUATE) Large Platelets Occ Sodium Level 141 mmol/L (136-145) Potassium Level 4.0 mmol/L (3.5-5.1) Chloride Level 103 mmol/L (98-107) Carbon Dioxide Level 29 mmol/L (21-32) Anion Gap 9 (6-14) Blood Urea Nitrogen 10 mg/dL (8-26) Creatinine 1.1 mg/dL (0.7-1.3) Estimated GFR (Cockcroft-Gault) 78.1 BUN/Creatinine Ratio 9 (6-20) Glucose Level 80 mg/dL (70-99) Calcium Level 8.7 mg/dL (8.5-10.1) Total Bilirubin 1.7 mg/dL (0.2-1.0) Aspartate Amino Transf (AST/SGOT) 45 U/L (15-37) Alanine Aminotransferase (ALT/SGPT) 73 U/L (16-63) Alkaline Phosphatase 71 U/L (46-116) Total Protein 7.3 g/dL (6.4-8.2) Albumin 3.8 g/dL (3.4-5.0) Albumin/Globulin Ratio 1.1 (1.0-1.7) Urine Collection Type Unknown Urine Color Straw Urine Clarity Clear Urine pH 7.0 Urine Specific [place] 1.010 Urine Protein Negative mg/dL (NEG-TRACE) Urine Glucose (UA) Negative mg/dL (NEG) Urine Ketones (Stick) Negative mg/dL (NEG) Urine Blood Negative (NEG) Urine Nitrite Negative (NEG) Urine Bilirubin Negative (NEG) Urine Urobilinogen Dipstick 0.2 mg/dL (0.2 mg/dL) Urine Leukocyte Esterase Negative (NEG) Urine RBC 0 /HPF (0-2) Urine WBC 0 /HPF (0-4) Urine Squamous Epithelial Cells None /LPF Urine Bacteria 0 /HPF (0-FEW) Test 06/11/18 04:30 06/11/18 08:03 White Blood Count 12.5 x10^3/uL (4.0-11.0) Red Blood Count 5.29 x10^6/uL (4.30-5.70) Hemoglobin 15.5 g/dL (13.0-17.5) Hematocrit 47.9 % (39.0-53.0) Mean Corpuscular Volume 91 fL (79-100) Mean Corpuscular Hemoglobin 29 pg (25-35) Mean Corpuscular Hemoglobin Concent 32 g/dL (31-37) Red Cell Distribution Width 16.1 % (11.5-14.5) Platelet Count 167 x10^3/uL (140-400) Neutrophils (%) (Auto) 76 % (31-73) Lymphocytes (%) (Auto) 16 % (24-48) Monocytes (%) (Auto) 7 % (0-9) Eosinophils (%) (Auto) 1 % (0-3) Basophils (%) (Auto) 1 % (0-3) Neutrophils # (Auto) 9.5 x10^3uL (1.8-7.7) Lymphocytes # (Auto) 2.0 x10^3/uL (1.0-4.8) Monocytes # (Auto) 0.9 x10^3/uL (0.0-1.1) Eosinophils # (Auto) 0.1 x10^3/uL (0.0-0.7) Basophils # (Auto) 0.1 x10^3/uL (0.0-0.2) Sodium Level 140 mmol/L (136-145) Potassium Level 3.8 mmol/L (3.5-5.1) Chloride Level 104 mmol/L (98-107) Carbon Dioxide Level 24 mmol/L (21-32) Anion Gap 12 (6-14) Blood Urea Nitrogen 9 mg/dL (8-26) Creatinine 0.9 mg/dL (0.7-1.3) Estimated GFR (Cockcroft-Gault) 98.4 BUN/Creatinine Ratio 10 (6-20) Glucose Level 84 mg/dL (70-99) Calcium Level 8.5 mg/dL (8.5-10.1) Total Bilirubin 1.6 mg/dL (0.2-1.0) Aspartate Amino Transf (AST/SGOT) 32 U/L (15-37) Alanine Aminotransferase (ALT/SGPT) 56 U/L (16-63) Alkaline Phosphatase 62 U/L (46-116) Total Protein 6.4 g/dL (6.4-8.2) Albumin 3.2 g/dL (3.4-5.0) Albumin/Globulin Ratio 1.0 (1.0-1.7) Glucose (Fingerstick) 79 mg/dL (70-99) Laboratory Tests Test 06/10/18 11:45 06/10/18 12:20 06/10/18 17:50 06/11/18 04:30 Stool Occult Blood Negative (NEG) White Blood Count 16.1 x10^3/uL (4.0-11.0) 12.5 x10^3/uL (4.0-11.0) Red Blood Count 5.69 x10^6/uL (4.30-5.70) 5.29 x10^6/uL (4.30-5.70) Hemoglobin 17.1 g/dL (13.0-17.5) 15.5 g/dL (13.0-17.5) Hematocrit 51.5 % (39.0-53.0) 47.9 % (39.0-53.0) Mean Corpuscular Volume 90 fL (79-100) 91 fL (79-100) Mean Corpuscular Hemoglobin 30 pg (25-35) 29 pg (25-35) Mean Corpuscular Hemoglobin Concent 33 g/dL (31-37) 32 g/dL (31-37) Red Cell Distribution Width 15.7 % (11.5-14.5) 16.1 % (11.5-14.5) Platelet Count 188 x10^3/uL (140-400) 167 x10^3/uL (140-400) Neutrophils (%) (Auto) 79 % (31-73) 76 % (31-73) Lymphocytes (%) (Auto) 14 % (24-48) 16 % (24-48) Monocytes (%) (Auto) 6 % (0-9) 7 % (0-9) Eosinophils (%) (Auto) 0 % (0-3) 1 % (0-3) Basophils (%) (Auto) 1 % (0-3) 1 % (0-3) Neutrophils # (Auto) 12.6 x10^3uL (1.8-7.7) 9.5 x10^3uL (1.8-7.7) Lymphocytes # (Auto) 2.2 x10^3/uL (1.0-4.8) 2.0 x10^3/uL (1.0-4.8) Monocytes # (Auto) 1.0 x10^3/uL (0.0-1.1) 0.9 x10^3/uL (0.0-1.1) Eosinophils # (Auto) 0.1 x10^3/uL (0.0-0.7) 0.1 x10^3/uL (0.0-0.7) Basophils # (Auto) 0.1 x10^3/uL (0.0-0.2) 0.1 x10^3/uL (0.0-0.2) Segmented Neutrophils % 77 % (35-66) Band Neutrophils % 3 % (0-9) Lymphocytes % 9 % (24-48) Atypical Lymphocytes % (Manual) 3 % (0-0) Monocytes % 7 % (0-10) Eosinophils % 1 % (0-5) Platelet Estimate Adequate (ADEQUATE) Large Platelets Occ Sodium Level 141 mmol/L (136-145) 140 mmol/L (136-145) Potassium Level 4.0 mmol/L (3.5-5.1) 3.8 mmol/L (3.5-5.1) Chloride Level 103 mmol/L (98-107) 104 mmol/L (98-107) Carbon Dioxide Level 29 mmol/L (21-32) 24 mmol/L (21-32) Anion Gap 9 (6-14) 12 (6-14) Blood Urea Nitrogen 10 mg/dL (8-26) 9 mg/dL (8-26) Creatinine 1.1 mg/dL (0.7-1.3) 0.9 mg/dL (0.7-1.3) Estimated GFR (Cockcroft-Gault) 78.1 98.4 BUN/Creatinine Ratio 9 (6-20) 10 (6-20) Glucose Level 80 mg/dL (70-99) 84 mg/dL (70-99) Calcium Level 8.7 mg/dL (8.5-10.1) 8.5 mg/dL (8.5-10.1) Total Bilirubin 1.7 mg/dL (0.2-1.0) 1.6 mg/dL (0.2-1.0) Aspartate Amino Transf (AST/SGOT) 45 U/L (15-37) 32 U/L (15-37) Alanine Aminotransferase (ALT/SGPT) 73 U/L (16-63) 56 U/L (16-63) Alkaline Phosphatase 71 U/L (46-116) 62 U/L (46-116) Total Protein 7.3 g/dL (6.4-8.2) 6.4 g/dL (6.4-8.2) Albumin 3.8 g/dL (3.4-5.0) 3.2 g/dL (3.4-5.0) Albumin/Globulin Ratio 1.1 (1.0-1.7) 1.0 (1.0-1.7) Urine Collection Type Unknown Urine Color Straw Urine Clarity Clear Urine pH 7.0 Urine Specific [place] 1.010 Urine Protein Negative mg/dL (NEG-TRACE) Urine Glucose (UA) Negative mg/dL (NEG) Urine Ketones (Stick) Negative mg/dL (NEG) Urine Blood Negative (NEG) Urine Nitrite Negative (NEG) Urine Bilirubin Negative (NEG) Urine Urobilinogen Dipstick 0.2 mg/dL (0.2 mg/dL) Urine Leukocyte Esterase Negative (NEG) Urine RBC 0 /HPF (0-2) Urine WBC 0 /HPF (0-4) Urine Squamous Epithelial Cells None /LPF Urine Bacteria 0 /HPF (0-FEW) Test 06/11/18 08:03 Glucose (Fingerstick) 79 mg/dL (70-99) Assessment/Plan Assessment/Plan 1. Potential polycythemia. -On admission, his hgb was slightly on the higher side, but it is now in the 15 range. He has several factors that could cause this. He most likely was a little dehydrated on admission and when he became more hydrated it improved. Also, he is a known smoker and most likely has GILBERT which if his hgb continued to be elevated, it most likely would be secondary. I do not feel that we need to order any further workup unless as an outpatient his hgb were to remain persistently elevated with all of his acute issues under control 2. Cardiomyopathy/atrial tachy. Management as per cardiology KENAN ARNETT MD Jun 11, 2018 11:52
[2018-06-11 15:00] VITALS: BP 132/73
[2018-06-11 19:30] VITALS: BP 151/86
[2018-06-11 22:58] VITALS: BP 131/75
[2018-06-11] MEDS: ZOLPIDEM 5 MG TABLET. PO PRN (23:01)
[2018-06-12] VITALS (8 sets, daily range): BP systolic 124–135; BP diastolic 62–84
--- NOTE | 2018-06-12 07:26 | EKG ---
[facility] [address] [place] [address] Test Date: 2018-06-11 Test Time: 12:20:27 Pat Name: KRISTY RECINOS Department: Room: 207 1 Gender: Male [employer]: : 1985 Requested By: RONI DUNN Order Number: [id number] Reading MD: Roni Dunn MD Measurements Intervals [place] Rate: 116 P: 32 NH: 136 QRS: 0 QRSD: 78 T: 36 QT: 304 QTc: 428 Interpretive Statements SINUS TACHYCARDIA Electronically Signed On 06-15-2018 15:50:12 CDT by Roni Dunn MD
[2018-06-12] MEDS ORDERED: PROPOFOL 10 MG/ML (20ML) VIAL. IV ONE (08:00)
[2018-06-12] MEDS: FUROSEMIDE 40 MG/4 ML VIAL. IVP SCH (08:05)
[2018-06-12] MEDS: APIXABAN 5 MG TABLET. PO SCH (08:06)
[2018-06-12] MEDS: DIGOXIN 125 MCG TABLET. PO SCH (08:06)
[2018-06-12] MEDS: CETIRIZINE HCL 10 MG TABLET. PO SCH (08:07)
[2018-06-12] MEDS: METOPROLOL TART IMMED RELEASE 25 MG TABLET. PO SCH ×3 (08:07→17:31)
[2018-06-12] MEDS: LISINOPRIL 5 MG TABLET. PO SCH (08:07)
--- NOTE | 2018-06-12 08:50 | PDOC ---
SUBJECTIVE Subjective S: Feeling okay, stopped smoking O: Physical exam: Gen.: Well-nourished and well-developed, resting in bed Lungs: Breathing comfortably with no evidence of respiratory distress Psychiatric: Pleasant mood and affect Labs: Reviewed, hemoglobin normal Assessment and Plan: 32-year-old male with cardiomyopathy, tachycardia, smoking history, snoring, and concern for erythrocytosis recently though no erythrocytosis noted here. Concern for erythrocytosis: Can reevaluate if it returns, with epo and Jak2, however likely not necessary, would reassess after potential sleep study as needed due to snoring and it can take about 90 days for red blood cells to equilibrate after smoking cessation, with sleep apnea and smoking being both common causes of erythrocytosis. If it does return he certainly is welcome to follow-up with us at hematology prn. Cardiomyopathy: Cardiology is following, possible BERTIN today? Tobacco abuse: He does tell me he has quit smoking Disposition: per others Thank you kindly and please do not hesitate to call with questions. OBJECTIVE Vital Signs Vital Signs Date Time Temp Pulse Resp B/P (MAP) Pulse Ox O2 Delivery O2 Flow Rate FiO2 06/12/18 08:07 89 125/78 06/12/18 08:07 89 125/78 06/12/18 08:06 87 125/78 06/12/18 07:35 98.4 82 24 125/78 (94) 98 Room Air 98.4 06/12/18 03:34 98.3 83 18 131/62 (85) 96 Room Air 98.3 06/11/18 23:01 86 131/75 06/11/18 22:58 97.3 86 18 131/75 (93) 97 Room Air 97.3 06/11/18 19:30 98.0 82 16 151/86 (107) 97 Room Air 98.0 06/11/18 19:24 Room Air 06/11/18 18:08 91 132/73 06/11/18 15:00 97.9 91 18 132/73 (92) 97 Room Air 97.9 06/11/18 11:36 85 131/70 06/11/18 10:34 98.0 85 20 131/70 (90) 97 Room Air 98.0 I & O Intake and Output 06/12/18 07:00 Intake Total 1780 ml Output Total 500 ml Balance 1280 ml Intake Oral 1780 ml Output Urine Total 500 ml # Voids 4 ANAYELI DAWSON MD Jun 12, 2018 08:50
[2018-06-12] MEDS ORDERED: BENZOCAINE ONE 20% MUCOSAL SPRAY. MM (10:45)
[2018-06-12] MEDS ORDERED: LIDOCAINE 2% JELLY 6ML IN APPLICATOR. MM ONE (10:45)
[2018-06-12] MEDS ORDERED: LIDOCAINE 2% VISCOUS 15 ML SOLUTION. SWSW ONE (10:45)
--- NOTE | 2018-06-12 11:39 | NUR ---
SS following for discharge planning. SS reviewed pt chart and met with pt's RN. Pt is from home and is currently on room air. No discharge needs noted at this time. SS will continue to follow for pending discharge needs.
[2018-06-12] MEDS: FLUTICASONE 50MCG/NASAL SPRAY 16GM BOTTLE. NS SCH (11:44)
[2018-06-12] MEDS: LEVOTHYROXINE 125 MCG TABLET PO SCH (11:44)
--- NOTE | 2018-06-12 12:50 | PDOC ---
PULMONARY PROGRESS NOTES Subjective rate better controlled, sob better, no cough, no cp Vitals Vital Signs Date Time Temp Pulse Resp B/P (MAP) Pulse Ox O2 Delivery O2 Flow Rate FiO2 06/12/18 11:43 80 130/82 06/12/18 11:15 98.2 24 98 Room Air 98.2 ROS: No Nausea, No Chest Pain General: Alert HEENT: Other (nc at perrl ) Lungs: Clear Cardiovascular: S1, S2 Abdomen: Soft, Non-tender Neuro Exam: Alert Extremities: No Edema Skin: Warm Labs Laboratory Tests Test 06/10/18 16:35 06/10/18 17:50 06/11/18 04:30 06/11/18 08:03 Erythropoietin 21.9 mIU/mL (2.6-18.5) Urine Collection Type Unknown Urine Color Straw Urine Clarity Clear Urine pH 7.0 Urine Specific [place] 1.010 Urine Protein Negative mg/dL (NEG-TRACE) Urine Glucose (UA) Negative mg/dL (NEG) Urine Ketones (Stick) Negative mg/dL (NEG) Urine Blood Negative (NEG) Urine Nitrite Negative (NEG) Urine Bilirubin Negative (NEG) Urine Urobilinogen Dipstick 0.2 mg/dL (0.2 mg/dL) Urine Leukocyte Esterase Negative (NEG) Urine RBC 0 /HPF (0-2) Urine WBC 0 /HPF (0-4) Urine Squamous Epithelial Cells None /LPF Urine Bacteria 0 /HPF (0-FEW) White Blood Count 12.5 x10^3/uL (4.0-11.0) Red Blood Count 5.29 x10^6/uL (4.30-5.70) Hemoglobin 15.5 g/dL (13.0-17.5) Hematocrit 47.9 % (39.0-53.0) Mean Corpuscular Volume 91 fL (79-100) Mean Corpuscular Hemoglobin 29 pg (25-35) Mean Corpuscular Hemoglobin Concent 32 g/dL (31-37) Red Cell Distribution Width 16.1 % (11.5-14.5) Platelet Count 167 x10^3/uL (140-400) Neutrophils (%) (Auto) 76 % (31-73) Lymphocytes (%) (Auto) 16 % (24-48) Monocytes (%) (Auto) 7 % (0-9) Eosinophils (%) (Auto) 1 % (0-3) Basophils (%) (Auto) 1 % (0-3) Neutrophils # (Auto) 9.5 x10^3uL (1.8-7.7) Lymphocytes # (Auto) 2.0 x10^3/uL (1.0-4.8) Monocytes # (Auto) 0.9 x10^3/uL (0.0-1.1) Eosinophils # (Auto) 0.1 x10^3/uL (0.0-0.7) Basophils # (Auto) 0.1 x10^3/uL (0.0-0.2) Sodium Level 140 mmol/L (136-145) Potassium Level 3.8 mmol/L (3.5-5.1) Chloride Level 104 mmol/L (98-107) Carbon Dioxide Level 24 mmol/L (21-32) Anion Gap 12 (6-14) Blood Urea Nitrogen 9 mg/dL (8-26) Creatinine 0.9 mg/dL (0.7-1.3) Estimated GFR (Cockcroft-Gault) 98.4 BUN/Creatinine Ratio 10 (6-20) Glucose Level 84 mg/dL (70-99) Calcium Level 8.5 mg/dL (8.5-10.1) Total Bilirubin 1.6 mg/dL (0.2-1.0) Aspartate Amino Transf (AST/SGOT) 32 U/L (15-37) Alanine Aminotransferase (ALT/SGPT) 56 U/L (16-63) Alkaline Phosphatase 62 U/L (46-116) Total Protein 6.4 g/dL (6.4-8.2) Albumin 3.2 g/dL (3.4-5.0) Albumin/Globulin Ratio 1.0 (1.0-1.7) Glucose (Fingerstick) 79 mg/dL (70-99) Medications Active Scripts Medications Dose Route/Sig Max Daily Dose Days Date Category Loratadine 10 Mg Tablet 1 Tab PO DAILY 06/08/18 Reported Diltiazem 24Hr Cd (Diltiazem HCl) 240 Mg Cap.er.24h 240 Mg PO DAILY 06/08/18 Reported Levothyroxine Sodium 125 Mcg Tablet 1 Tab PO DAILY 06/08/18 Reported Fluticasone Propionate Nasal [place] (Fluticasone Propionate) 16 Gm [place].susp 2 [place] NS DAILY 06/08/[address] 1. Moderate bilateral effusions. 2. Mild atelectasis in the lung bases. 3. No definite pulmonary embolus. Impression . IMPRESSION: 1. Dyspnea, likely related to atrial tachycardia and cardiomyopathy and sys chf. 2. NI Severe cardiomyopathy. ef 10-15%, cardiac cath, no sig cad 3. Atrial arrhythmias, ?needs electrophysiologic study. 4. Elevation in D-dimer is nonspecific, CTA chest, no pe. u ext superficial clot, no AC from pulmonary self 5. obesity, eds, suspected obstructive sleep apnea. The patient's father reports gasping for air at night. He will benefit from outpatient sleep study. Plan . 1. oxygen titration. 2. cta reviewed, no pe, v q scan, low prob 3. anticoag per Cardiology. 4. quit smoking for ever 5. Recommend sleep study as an outpatient. 6. Follow Cardiology recommendation. BERTIN/Cardioversion today 7. psg out pt, reviewed overnight ox, suggestive of willian, dmitry sat 71%, below 80%, 8 min, below 90% over 1 hr, 02 qhs, need psg 6 min walk at discharge discussed w pt and rn LIZBETH SNIGH MD Jun 12, 2018 12:49
[2018-06-12] MEDS ORDERED: IV RINGERS,LACTATED 1000ML 1,000 ML IV SCH (15:11)
[2018-06-12] MEDS ORDERED: fentaNYL PF VIAL 100 MCG/2 ML VIAL IV PRN ×2 (15:15)
[2018-06-12] MEDS ORDERED: ONDANSETRON PF 4 MG/2 ML VIAL. IV PRN (15:15)
[2018-06-12] MEDS ORDERED: LIDOCAINE 1% PF 2 ML VIAL. ID PRN (15:15)
[2018-06-12] MEDS ORDERED: MORPHINE SULFATE 2 MG/ML VIAL. IV PRN (15:15)
[2018-06-12] MEDS ORDERED: PROCHLORPERAZINE 10 MG/2 ML VIAL. IV PRN (15:15)
[2018-06-12] MEDS ORDERED: HYDROmorphone 2 MG/ML VIAL IV PRN (15:15)
[2018-06-12] MEDS ORDERED: LISI-338 PO (15:52)
[2018-06-12] MEDS ORDERED: FURO-68 PO (15:52)
[2018-06-12] MEDS ORDERED: DIGO125T PO (15:52)
[2018-06-12] MEDS ORDERED: METO-247 PO (15:52)
--- NOTE | 2018-06-12 15:52 | CARD ---
MR#: [id number] Date of Study: 06/12/2018 Ordering Physician: RONI DAWSON, Referring Physician: ODESSA ESTRELLA, Tech: Aicha Keenan APPROVED REPORT EXAM: Transesophageal echocardiogram with color flow Doppler and Synchronized Cardioversion. INDICATION Tachycardia Reason For Test : Rule out Intracardiac Thrombus. PROCEDURE After obtaining informed consent, patient underwent transesophageal echo in the PACU. Type of Sedation : General Anesthesia Sedation was administered by Anderson Gonsalez CRNA. Sedation was achieved with Propofol 130mg intravenously. Transesophageal probe was inserted and advanced into esophagus by Armando Dawson MD. The BERTIN was performed without complications. Synchronized Cardioversion acheived with Joules after 2 attempt(s). Throughout the procedure, the blood pressure, pulse oximetry, cardiac rhythm, and rate were monitored . LEFT VENTRICLE The Left Ventricle is mildly dilated. There is borderline to mild concentric left ventricular hypertr ophy. The systolic function is severely impaired. The Ejection Fraction is 10-15%. There is severe gl obal hypokinesis of the left ventricle. RIGHT VENTRICLE The right ventricle is borderline dilated. There is normal right ventricular wall thickness. RV Systo lic function is mildly reduced. ATRIA The left atrium is mildly dilated. The right atrium size is normal. The interatrial septum is intact with no evidence for an atrial septal defect or patent foramen ovale as noted on 2-D or Doppler imagi ng. There is no thrombus noted in the left atrial appendage. AORTIC VALVE The aortic valve is normal in structure and function. Doppler and Color Flow revealed no significant aortic regurgitation. There is no significant aortic valvular stenosis. There is no aortic valvular v egetation. MITRAL VALVE The mitral valve is normal in structure and function. There is no evidence of mitral valve prolapse. There is no mitral valve stenosis. Doppler and Color-flow revealed trace mitral regurgitation. TRICUSPID VALVE The tricuspid valve is normal in structure and function. Doppler and Color Flow revealed trace tricus pid regurgitation. There is no tricuspid valve stenosis. PULMONIC VALVE The pulmonary valve is normal in structure and function. Doppler and color-flow analysis was performe d. There is no pulmonic valvular stenosis. GREAT VESSELS The aortic root is normal in size. The IVC is normal in size and collapses >50% with inspiration. Critical Notification Critical Value: No <Conclusion> The systolic function is severely impaired. The Ejection Fraction is 10-15%. There is severe global hypokinesis of the left ventricle. Unsuccessful CVN of atrial tachycardia despite high joule shock. Signed by : Roni Dawson, Electronically Approved : 06/12/2018 15:52:27
[2018-06-12] MEDS ORDERED: APIX5TAB PO (15:54)
--- NOTE | 2018-06-12 16:09 | PDOC3 ---
Discharge Summary Visit Information Date of Admission: Jun 08, 2018 Date of Discharge: Jun 12, 2018 Admitting Diagnosis: paroxysmal svt Final Diagnosis 1. Paroxysmal supraventricular tachycardia with failed cardioversion, will do rate control medically. Non ischemic atrial tachycardia induced cardiomyopathy 2. morbid obesity 3. hx htn 4. possible GILBERT 5. elevated tsh with nl free T4 MAY REFLECT EARLY SUBCLINICAL HYPOTHYROID STATE 6. elevated d-dimer R/O PE 7. elevated hgb/hct most likely secondary to secondary causes, patient is a smoker and has most likely GILBERT. Can pursue further testing in the outpatient if it persists. Brief Hospital Course Allergies Allergies Coded Allergies Type Severity Reaction Last Updated Verified cefaclor Allergy Intermediate 06/08/18 Yes Vital Signs Vital Signs Date Time Temp Pulse Resp B/P (MAP) Pulse Ox O2 Delivery O2 Flow Rate FiO2 06/12/18 15:30 Room Air 06/12/18 11:43 80 130/82 06/12/18 11:15 98.2 24 98 98.2 Lab Results Laboratory Tests Test 06/10/18 16:35 06/10/18 17:50 06/11/18 04:30 06/11/18 08:03 Erythropoietin 21.9 mIU/mL (2.6-18.5) Urine Collection Type Unknown Urine Color Straw Urine Clarity Clear Urine pH 7.0 Urine Specific [place] 1.010 Urine Protein Negative mg/dL (NEG-TRACE) Urine Glucose (UA) Negative mg/dL (NEG) Urine Ketones (Stick) Negative mg/dL (NEG) Urine Blood Negative (NEG) Urine Nitrite Negative (NEG) Urine Bilirubin Negative (NEG) Urine Urobilinogen Dipstick 0.2 mg/dL (0.2 mg/dL) Urine Leukocyte Esterase Negative (NEG) Urine RBC 0 /HPF (0-2) Urine WBC 0 /HPF (0-4) Urine Squamous Epithelial Cells None /LPF Urine Bacteria 0 /HPF (0-FEW) White Blood Count 12.5 x10^3/uL (4.0-11.0) Red Blood Count 5.29 x10^6/uL (4.30-5.70) Hemoglobin 15.5 g/dL (13.0-17.5) Hematocrit 47.9 % (39.0-53.0) Mean Corpuscular Volume 91 fL (79-100) Mean Corpuscular Hemoglobin 29 pg (25-35) Mean Corpuscular Hemoglobin Concent 32 g/dL (31-37) Red Cell Distribution Width 16.1 % (11.5-14.5) Platelet Count 167 x10^3/uL (140-400) Neutrophils (%) (Auto) 76 % (31-73) Lymphocytes (%) (Auto) 16 % (24-48) Monocytes (%) (Auto) 7 % (0-9) Eosinophils (%) (Auto) 1 % (0-3) Basophils (%) (Auto) 1 % (0-3) Neutrophils # (Auto) 9.5 x10^3uL (1.8-7.7) Lymphocytes # (Auto) 2.0 x10^3/uL (1.0-4.8) Monocytes # (Auto) 0.9 x10^3/uL (0.0-1.1) Eosinophils # (Auto) 0.1 x10^3/uL (0.0-0.7) Basophils # (Auto) 0.1 x10^3/uL (0.0-0.2) Sodium Level 140 mmol/L (136-145) Potassium Level 3.8 mmol/L (3.5-5.1) Chloride Level 104 mmol/L (98-107) Carbon Dioxide Level 24 mmol/L (21-32) Anion Gap 12 (6-14) Blood Urea Nitrogen 9 mg/dL (8-26) Creatinine 0.9 mg/dL (0.7-1.3) Estimated GFR (Cockcroft-Gault) 98.4 BUN/Creatinine Ratio 10 (6-20) Glucose Level 84 mg/dL (70-99) Calcium Level 8.5 mg/dL (8.5-10.1) Total Bilirubin 1.6 mg/dL (0.2-1.0) Aspartate Amino Transf (AST/SGOT) 32 U/L (15-37) Alanine Aminotransferase (ALT/SGPT) 56 U/L (16-63) Alkaline Phosphatase 62 U/L (46-116) Total Protein 6.4 g/dL (6.4-8.2) Albumin 3.2 g/dL (3.4-5.0) Albumin/Globulin Ratio 1.0 (1.0-1.7) Glucose (Fingerstick) 79 mg/dL (70-99) Brief Hospital Course Mr. Zavala is a 32 old male who presented with atrial tachycardia. The patient was seen in consultation by cardiology. The patient was evaluated with echocardiogram which showed a left ventricular systolic function with severe impairment. ejection fraction was 10-15%. This prompted an ischemic workup that included cardiac catheterization with no evidence of obstructive lesions. His depressed ejection fraction most likely is associated with the uncontrolled supraventricular tachycardia. Rate control was achieved with cardizem. The patient was started on metoprolol and also lisinopril Lasix as well as part of his medical management. He has evidence of a superficial thrombosis in the left upper extremity which I have explained to him the very low probabilities for pulmonary embolism as a consequence of it. Reassurance was provided, the patient underwent a CT-guided of the chest that did not reveal pulmonary embolism and this was related to the patient. He had not understanding of the workup process and on the day of discharge patient underwent a transesophageal echocardiogram prior to a cardioversion attempt. This was a failed attempt unfortunately. Patient will need to follow up with electrophysiology in the outpatient, he was deemed appropriate for discharge from the cardiological standpoint of view 1 of his workup also included a polycythemia initial diagnosis by admitting physician. The patient had lula not been drinking well appropriately he is a smoker and definitely his counts improve, this can be pursued in the outpatient setting if it persists but nevertheless the patient given his body habitus is at risk for obstructive sleep apnea which needs to be ruled out as well. Patient can be dismissed on metoprolol digoxin Lasix lisinopril and he will follow-up in the outpatient setting with electrophysiology, all of his concerns were addressed to the best of my abilities Her than 35 minutes were spent in the discharge plan the patient counseling coronation of care and arrangements for safe discharge Gen.: well-developed well-nourished in no apparent distress Head: Normal shape atraumatic Eyes: Pupils equal reactive to light and accommodation, normal conjunctivae and lids Ears: Normal shape Nose: Normal shape no trauma Mouth: No exudates of the back of throat no thrush no lesions Neck: Supple no JVD no carotid bruit or lymphadenopathy no thyromegaly Chest: Lungs clear to auscultation with good inspiratory effort no crackles rales or rhonchi Cardiovascular: S1-S2 tachycardic irregular no murmurs gallops or rubs Abdomen: Bowel sounds present soft nontender no hepatosplenomegaly appreciated sign Extremities: No clubbing no cyanosis no edema peripheral pulses palpated bilaterally Neurological: Alert awake oriented in person time place and situation, cranial nerves II through XII intact, no motor or sensory deficits appreciated Psych: Appropriate mood, cooperative Discharge Information Condition at Discharge: Improved Follow Up: Weeks Disposition/Orders: D/C to Home Scheduled Apixaban (Eliquis) 5 Mg Tablet, 5 MG PO BID for arrhytmia for 30 Days, #60 Prescribed by: ANA LANCE MD on 06/12/18 1554 Digoxin (Digoxin) 125 Mcg Tablet, 125 MCG PO DAILY for rate control for 30 Days , #30 Prescribed by: ANA LANCE MD on 06/12/18 1552 Diltiazem HCl (Diltiazem 24Hr Cd) 240 Mg Cap.er.24h, 240 MG PO DAILY for tachycardia, (Reported) Entered as Reported by: HOPE WEEMS on 06/08/181711 Last Taken: Unknown Dose on Unknown Date & Time Last Action: Reviewed on 06/08/181712 by HOPE WEEMS Fluticasone Propionate (Fluticasone Propionate Nasal [place]) 16 Gm [place].susp, 2 [place] NS DAILY for allergies, #1 Ref 11 (Reported) Entered as Reported by: HOPE WEEMS on 06/08/181711 Last Taken: Unknown Dose on Unknown Date & Time Last Action: Continued on 06/08/181907 by HOPE WEEMS Furosemide (Lasix) 40 Mg Tablet, 1 TAB PO DAILY for cardiomyopathy, #90 Ref 1 Prescribed by: ANA LANCE MD on 06/12/181551 Levothyroxine Sodium (Levothyroxine Sodium) 125 Mcg Tablet, 1 TAB PO DAILY for hypothyroidism, #30 Ref 5 (Reported) Entered as Reported by: HOPE WEEMS on 06/08/181711 Last Taken: Unknown Dose on Unknown Date & Time Last Action: Converted on 06/08/181907 by HOPE WEEMS Lisinopril (Lisinopril) 5 Mg Tablet, 2.5 MG PO DAILY for cardiomyopathy for 30 Days, #15 Prescribed by: ANA LANCE MD on 06/12/181551 Loratadine (Loratadine) 10 Mg Tablet, 1 TAB PO DAILY for allergies, #30 Ref 5 ( Reported) Entered as Reported by: HOPE WEEMS on 06/08/181711 Last Taken: Unknown Dose on Unknown Date & Time Last Action: Converted on 06/08/181907 by HOPE WEEMS Metoprolol Succinate (Metoprolol Succinate ( Xl )) 100 Mg Tab.er.24h, 1 TAB PO DAILY for rate control, #30 Ref 5 Prescribed by: ANA LANCE MD on 06/12/18 1552 ANA LANCE MD Jun 12, 2018 16:09
[2018-06-12] MEDS ORDERED: METO25TA2 PO (16:32)
[2018-06-12] MEDS ORDERED: METO-239 PO ×2 (16:33→16:34)
--- NOTE | 2018-06-12 16:37 | NUR ---
Patient's medications called into [facility] in [place]. Meds include: Extended Release Metoprolol 50 mg daily, Digoxin 125 mcg daily, Eliquis 5 mg twice daily, lisinopril 2.5 mg daily, furosemide 40 mg daily. All were called in for 30 day supply with 1 refill. Discharge papers altered to reflect the metoprolol change from 25 mg every 6 hours to 50 mg of the extended release daily. Verbal instruction on medications also given to patient and father with stated understanding.
--- NOTE | 2018-06-14 13:12 | RESP ---
DATE OF SERVICE: 06/10/2018 This was done on room air. The patient's mean oxygen saturation remained around 92% with the lowest of 71%. One hour 35 minutes were spent in oxygen saturation of less than 90%, which is 19% of the total sleep time. IMPRESSION: Moderate nocturnal hypoxia. RECOMMENDATIONS: 1. If clinical suspicion for sleep apnea is high, then consider doing full polysomnogram. 2. If the patient does not undergo polysomnogram, then the patient would qualify for oxygen at 2 liters. LIZBETH SINGH MD DR: RADHA/jeff JOB#: [id number] / [id number]
== END 2018-06-12 18:40 | disposition home or self-care (01) | DRG 286 ==
LOC: ER 10:24 → 2 NORTH 12:30
PROVIDERS: ADMIT Family Medicine; ATTEND Family Medicine
PROC: 4A023N7 Measurement of Cardiac Sampling and Pressure, Left Heart, Percutaneous Approach (ICD-10-PCS; principal; 2018-06-09)
PROC: B2111ZZ Fluoroscopy of Multiple Coronary Arteries using Low Osmolar Contrast (ICD-10-PCS; 2018-06-09)
PROC: B246ZZ4 Ultrasonography of Right and Left Heart, Transesophageal (ICD-10-PCS; 2018-06-12)
PROC: 5A2204Z Restoration of Cardiac Rhythm, Single (ICD-10-PCS; 2018-06-12)
DX: I47.1 Supraventricular tachycardia (principal); I50.21 Acute systolic (congestive) heart failure; I42.9 Cardiomyopathy, unspecified; J98.11 Atelectasis; E66.01 Morbid (severe) obesity due to excess calories; D75.1 Secondary polycythemia; I11.0 Hypertensive heart disease with heart failure; E03.9 Hypothyroidism, unspecified; J45.909 Unspecified asthma, uncomplicated; F17.210 Nicotine dependence, cigarettes, uncomplicated; G47.33 Obstructive sleep apnea (adult) (pediatric); Z88.1 Allergy status to other antibiotic agents; Z82.49 Family history of ischemic heart disease and other diseases of the circulatory system; Z68.37 Body mass index [BMI] 37.0-37.9, adult; Z91.19 Patient's noncompliance with other medical treatment and regimen
CPT/HCPCS: 36415; 71045; 71275; 78582; 80053; 81001; 81270; 82274; 82668; 82962; 83735; 84439; 84443; 84484; 85007; 85025; 85379; 85610; 85730; 92960; 93005; 93306; 93312; 93458; 93971; 94799; 96361; 96374; 96375; 99152; 99406; A9540; A9558; C1769; C1892; J0153; J1160; J1644; J1940; J2250; J2704; J3010; J3490; J7030; J7120; Q9967; 99285-25

== ENCOUNTER 2019-04-04 13:00 | Emergency (ER) | payer BC ==
[~2019-04-04] VITALS: Ht 182.9 cm; Wt 122.5 kg
[~2019-04-04 13:00] MED LIST: APIX5TAB PO; DIGO125T3 PO; DILT240C33 PO; FLUT16SP NS; FURO-68 PO; LEVO125T5 PO; LISI-338 PO; LORA10TA3 PO; METO-239 PO; METO-247 PO; METO25TA2 PO
--- NOTE | 2019-04-04 14:22 | PHYS DOC ---
Past Medical History Past Medical History: Hypertension, Hypothyroid Additional Past Medical Histor: tachycardia, prediabetic Past Surgical History: No Surgical History Additional Information: / Alcohol Use: Rarely Drug Use: None Adult General Chief Complaint Chief Complaint: OTHER COMPLAINTS HPI HPI Patient is a 33 year old male who presents with many complaints. She states that since before Liliam he has been having excessive thirst and feeling like his lips are only strapped, flushed in the face, cough that is nonproductive and at times will see stars and shortness of breath with exertion. He states that he has also been having a slight headache that comes and goes but goes away with Tylenol and ibuprofen. He currently denies any pain. He states last night took an Ambien for the first time in a long time and woke Up feeling confused. He states that he just feels hard to focus. Patient states that the hard to focus and confusion just started today. He states that he was recently changed off of lisinopril to losartan. He states he then was started Prolastin days. He states that he went and saw his primary care 2 weeks ago and they switched his medications. Patient smokes one pack a day. He had a cardiac ablation for tachycardia in 2019. He has hypertension. Review of Systems Review of Systems Respiratory: cough or shortness of breath that is intermittent [] Neurologic: Confusion. headache that comes and goes. Denies focal weakness or sensory changes [] All other systems were reviewed and found to be within normal limits, except as documented in this note. Current Medications Current Medications Current Medications Medications (Trade) Dose Ordered Sig/Yunior Start Time Stop Time Status Last Admin Dose Admin Sodium Chloride 1,000 ml @ 1,000 mls/hr 1X ONCE 04/04/19 14:15 04/04/19 15:14 DC 04/04/19 14:58 1,000 MLS/HR Allergies Allergies Allergies Coded Allergies Type Severity Reaction Last Updated Verified cefaclor Allergy Intermediate 06/08/18 Yes Physical Exam Physical Exam Constitutional: Well developed, well nourished, no acute distress, non-toxic a ppearance. [] HENT: Normocephalic, atraumatic, bilateral external ears normal, oropharynx moist, no oral exudates, nose normal. [] Eyes: PERRLA, EOMI, conjunctiva normal, no discharge. [] Neck: Normal range of motion, no tenderness, supple, no stridor. [] Cardiovascular:Heart rate regular rhythm, no murmur [] Lungs & Thorax: Bilateral breath sounds clear to auscultation [] Abdomen: Bowel sounds normal, soft, no tenderness, no masses, no pulsatile masses. [] Skin: Warm, dry, no erythema, no rash. [] Back: No tenderness, no CVA tenderness. [] Extremities: No tenderness, no cyanosis, no clubbing, ROM intact, no edema. [] Neurologic: Alert and oriented X 3, normal motor function, normal sensory function, no focal deficits noted. [] Psychologic: Affect normal, judgement normal, mood normal. Normal Physical Exam [] Current Patient Data Vital Signs Vital Signs Date Time Temp Pulse Resp B/P (MAP) Pulse Ox O2 Delivery O2 Flow Rate FiO2 04/04/19 15:30 68 16 171/105 (127) 99 Room Air 04/04/19 13:15 97.5 97.5 Lab Values Laboratory Tests Test 04/04/19 13:15 04/04/19 13:31 04/04/19 14:20 04/04/19 14:47 Urine Color Yellow Urine Clarity Clear Urine pH 7.0 Urine Specific [place] <=1.005 Urine Protein Negative mg/dL (NEG-TRACE) Urine Glucose (UA) Negative mg/dL (NEG) Urine Ketones (Stick) Negative mg/dL (NEG) Urine Blood Negative (NEG) Urine Nitrite Negative (NEG) Urine Bilirubin Negative (NEG) Urine Urobilinogen Dipstick 0.2 mg/dL (0.2 mg/dL) Urine Leukocyte Esterase Negative (NEG) Urine RBC 0 /HPF (0-2) Urine WBC Occ /HPF (0-4) Urine Squamous Epithelial Cells Occ /LPF Urine Bacteria 0 /HPF (0-FEW) Urine Opiates Screen Neg (NEG) Urine Methadone Screen Neg (NEG) Urine Barbiturates Neg (NEG) Urine Phencyclidine Screen Neg (NEG) Urine Amphetamine/Methamphetamine Neg (NEG) Urine Benzodiazepines Screen Neg (NEG) Urine Cocaine Screen Neg (NEG) Urine Cannabinoids Screen Neg (NEG) Urine Ethyl Alcohol Neg (NEG) Glucose (Fingerstick) 95 mg/dL (70-99) White Blood Count 10.7 x10^3/uL (4.0-11.0) Red Blood Count 5.63 x10^6/uL (4.30-5.70) Hemoglobin 17.8 g/dL (13.0-17.5) H Hematocrit 51.3 % (39.0-53.0) Mean Corpuscular Volume 91 fL (79-100) Mean Corpuscular Hemoglobin 32 pg (25-35) Mean Corpuscular Hemoglobin Concent 35 g/dL (31-37) Red Cell Distribution Width 14.7 % (11.5-14.5) H Platelet Count 192 x10^3/uL (140-400) Neutrophils (%) (Auto) 72 % (31-73) Lymphocytes (%) (Auto) 19 % (24-48) L Monocytes (%) (Auto) 5 % (0-9) Eosinophils (%) (Auto) 4 % (0-3) H Basophils (%) (Auto) 1 % (0-3) Neutrophils # (Auto) 7.7 x10^3/uL (1.8-7.7) Lymphocytes # (Auto) 2.0 x10^3/uL (1.0-4.8) Monocytes # (Auto) 0.5 x10^3/uL (0.0-1.1) Eosinophils # (Auto) 0.4 x10^3/uL (0.0-0.7) Basophils # (Auto) 0.1 x10^3/uL (0.0-0.2) Prothrombin Time 12.9 SEC (11.7-14.0) Prothrombin Time INR 1.0 (0.8-1.1) Influenza Type A Antigen Negative (NEGATIVE) Influenza Type B Antigen Negative (NEGATIVE) Test 04/04/19 14:54 Sodium Level 140 mmol/L (136-145) Potassium Level 3.6 mmol/L (3.5-5.1) Chloride Level 101 mmol/L (98-107) Carbon Dioxide Level 31 mmol/L (21-32) Anion Gap 8 (6-14) Blood Urea Nitrogen 13 mg/dL (8-26) Creatinine 0.9 mg/dL (0.7-1.3) Estimated GFR (Cockcroft-Gault) 97.8 BUN/Creatinine Ratio 14 (6-20) Glucose Level 97 mg/dL (70-99) Calcium Level 9.3 mg/dL (8.5-10.1) Total Bilirubin 0.3 mg/dL (0.2-1.0) Aspartate Amino Transferase (AST) 34 U/L (15-37) Alanine Aminotransferase (ALT) 86 U/L (16-63) H Alkaline Phosphatase 75 U/L (46-116) Troponin I Quantitative < 0.017 ng/mL (0.000-0.055) KI-Cnw-C-Type Natriuretic Peptide 39 pg/mL (0-124) Total Protein 7.5 g/dL (6.4-8.2) Albumin 4.1 g/dL (3.4-5.0) Albumin/Globulin Ratio 1.2 (1.0-1.7) Laboratory Tests 04/04/19 14:20 Laboratory Tests 04/04/19 14:54 EKG EKG Sinus rhythm and no STEMI[] Interpretation Time: [address] Espinal Radiology/Procedures Radiology/Procedures [] Impressions: [facility] [address] [place], [place] [id number] IMAGING REPORT Signed PATIENT: KRISTY RECINOS WACCOUNT: [id number] : 1985 LOCATION: ER AGE: 33 SEX: M EXAM STATUS: REG ER ORD. PHYSICIAN: VIELKA PRITCHARD APRN REASON: AMS, DIZZY PROCEDURE: CT HEAD WO CONTRAST EXAM: Head CT without contrast. HISTORY: Dizziness. TECHNIQUE: Computed tomographic images of the head were obtained without contrast. *One or more of the following individualized dose reduction techniques were utilized for this examination: 1. Automated exposure control. 2. Adjustment of the mA and/or kV according to patient size. 3. Use of iterative reconstruction technique. COMPARISON: None. FINDINGS: There is no acute or subacute extra-axial or intraparenchymal hemorrhage. There is no mass effect or midline shift. There is no hydrocephalus. There is a small focus of hypodensity within the right centrum semiovale. There is a tiny mucous retention cyst within the left maxillary sinus. The orbits and mastoid air cells are unremarkable. There is no calvarial lesion. IMPRESSION: 1. No acute intracranial finding. Note is made that MRI is more sensitive for acute infarction. 2. Small nonspecific focus of hypodensity within the right centrum semiovale. The differential patient of this age includes etiologies such as chronic small vessel disease as well as a focus of demyelination. Electronically signed by: Malissa Manriquez MD (04/04/2019 2:43 PM) [id number] DICTATED and SIGNED BY: MALISSA MANRIQUEZ MD DATE: 04/04/19 1443 [facility] [address] [place] [address] IMAGING REPORT Signed PATIENT: KRISTY RECINOS WACCOUNT: [id number] : 1985 LOCATION: ER AGE: 33 SEX: M EXAM STATUS: REG ER ORD. PHYSICIAN: VIELKA PRITCHARD APRN REASON: SOA PROCEDURE: CHEST PA & LATERAL CHEST PA LATERAL Clinical indications: Shortness of air. COMPARISON: June 09 2018. Findings: No acute lung infiltrate or pleural effusion or pulmonary edema or lung mass or pneumothorax is seen. The heart size, pulmonary vasculature, mediastinum and both aracelis are stable. Impression: No acute radiographic abnormality is seen. Electronically signed by: Jose Newell MD (04/04/2019 2:57 PM) [id number] DICTATED and SIGNED BY: JOSE NEWELL MD DATE: 04/04/19 1457 Course & Med Decision Making Course & Med Decision Making Lungs are clear to auscultation all lobes. Vital signs within normal limits. Abdomen soft and nontender. Alert and oriented. Speaks in full clear sentences. Ambulatory with steady gait. PERRLA. No extremity swelling. Skin pink warm and dry. Afebrile. Patient currently denies shortness of air, chest pain, abdominal pain, nausea, vomiting, diarrhea, dizziness, visual changes, numbness or tingling, weakness. Patient's physical exam was completely normal. Patient states he's also been having anxiety that has been going on for months also. PERC negative. Patietn states the only medication he is on is Losartan and levothyroxine. Patient remains stable. Ambien is the likely cause for his symptoms today as it can cause impaired mental alertness the next day, amnesia, lethargy, drug feeling, and lightheadedness. CT head and chest xray are normal. Blood work is normal. Patient is educated to stop smoking and to Stop taking Ambien. Patient i s educated to follow up with his proof passer or his primary care physician as soon as possible. Dragon Disclaimer Dragon Disclaimer This electronic medical record was generated, in whole or in part, using a voice recognition dictation system. NIHSS Stroke Scale NIH Stroke Scale: NIH Stroke Scale Response (Comments) Value Level of Consciousness: 0 Alert/Responsive 0 LOC Questions: 0 Answers both correctly 0 LOC Commands: 0 Performs both tasks 0 Best Gaze: 0 Normal 0 Visual: 0 No visual loss 0 Facial Palsy: 0 Normal, symmetrical 0 Motor - Left Arm 0 No drift 0 Motor - Right Arm 0 No drift 0 Motor - Left Leg 0 No drift 0 Motor: Right Leg 0 No drift 0 Limb Ataxia: 0 Absent 0 Sensory: 0 No loss 0 Best Language: 0 Normal 0 Dysathria: 0 Normal 0 Extinction and Inattention: 0 Normal 0 Total 0 Departure Departure Impression: Primary Impression: Cough Additional Impressions: Impaired mental alertness Dry mouth Shortness of breath Disposition: 01 HOME, SELF-CARE Condition: STABLE Referrals: WARREN GASPAR MD (PCP) Patient Instructions: Cough, Adult, Medical Screening Exam, Smokeless Tobacco Use, Smoking Cessation Additional Instructions: Follow up with your primary care doctor as soon as possible. Stop taking Ambien and stop smoking. Drink plenty of fluids. Scripts Hydroxyzine Hcl (HYDROXYZINE HCL) 25 Mg Tablet 1 TAB PO QHS, #20 TAB Prov: VIELKA PRITCHARD APRN 04/04/19 Benzonatate (TESSALON PERLE) 100 Mg Capsule 1 CAP PO TID, #30 CAP Prov: VIELKA PRITCHARD APRN 04/04/19 Problem Qualifiers VIELKA PRITCHARD APRN Apr 04, 2019 14:22
--- NOTE | 2019-04-04 14:28 | EKG ---
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
[2019-04-04 14:31] LABS: BASO # 0.1 x10^3/uL (0.0-0.2); BASO % 1 % (0-3); EOS # 0.4 x10^3/uL (0.0-0.7); EOS % 4 % (0-3); HEMATOCRIT 51.3 % (39.0-53.0); HEMOGLOBIN 17.8 g/dL (13.0-17.5); LYMPH % 19 % (24-48); MEAN CORPUSCULAR HEMOGLOBIN 32 pg (25-35); MEAN CORPUSCULAR HGB CONC 35 g/dL (31-37); MEAN CORPUSCULAR VOLUME 91 fL (79-100); MONO # 0.5 x10^3/uL (0.0-1.1); MONO % 5 % (0-9); NEUT # 7.7 x10^3/uL (1.8-7.7); NEUT % 72 % (31-73); PLATELET COUNT 192 x10^3/uL (140-400); RED BLOOD COUNT 5.63 x10^6/uL (4.30-5.70); RED CELL DISTRIBUTION WIDTH 14.7 % (11.5-14.5); WHITE BLOOD COUNT 10.7 x10^3/uL (4.0-11.0)
[2019-04-04 14:41] LABS: PROTHROMBIN TIME PATIENT 12.9 SEC (11.7-14.0)
[2019-04-04 14:42] LABS: BILIRUBIN,URINE NEGATIVE (NEG); CLARITY,URINE CLEAR; COLOR,URINE YELLOW; NITRITE,URINE NEGATIVE (NEG); PROTEIN,URINE NEGATIVE (NEG-TRACE); UROBILINOGEN,URINE 0.2 mg/dL (0.2 mg/dL)
[2019-04-04 14:44] LABS: AMPHETAMINE/METHAMPHETAMINE NEG (NEG); BARBITURATES NEG (NEG); BENZODIAZEPINES NEG (NEG); CANNABINOIDS NEG (NEG); COCAINE NEG (NEG); METHADONE NEG (NEG); OPIATES NEG (NEG); PHENCYCLIDINE NEG (NEG)
[2019-04-04 14:46] LABS: BACTERIA,URINE 0 /HPF (0-FEW); RBC,URINE 0 /HPF (0-2); SQUAMOUS EPITHELIAL CELL,UR OCC /LPF; WBC,URINE OCC /HPF (0-4)
--- NOTE | 2019-04-04 14:46 | RAD ---
EXAM: Head CT without contrast. HISTORY: Dizziness. TECHNIQUE: Computed tomographic images of the head were obtained without contrast. *One or more of the following individualized dose reduction techniques were utilized for this examination: 1. Automated exposure control. 2. Adjustment of the mA and/or kV according to patient size. 3. Use of iterative reconstruction technique. COMPARISON: None. FINDINGS: There is no acute or subacute extra-axial or intraparenchymal hemorrhage. There is no mass effect or midline shift. There is no hydrocephalus. There is a small focus of hypodensity within the right centrum semiovale. There is a tiny mucous retention cyst within the left maxillary sinus. The orbits and mastoid air cells are unremarkable. There is no calvarial lesion. IMPRESSION: 1. No acute intracranial finding. Note is made that MRI is more sensitive for acute infarction. 2. Small nonspecific focus of hypodensity within the right centrum semiovale. The differential patient of this age includes etiologies such as chronic small vessel disease as well as a focus of demyelination. Electronically signed by: Malissa Cifuentes MD (04/04/2019 2:43 PM) [place] [id number]
[2019-04-04] MEDS: IV NORMAL SALINE 1000ML BAG 1,000 ML IV ONE (14:58)
--- NOTE | 2019-04-04 15:01 | RAD ---
CHEST PA LATERAL Clinical indications: Shortness of air. COMPARISON: June 09 2018. Findings: No acute lung infiltrate or pleural effusion or pulmonary edema or lung mass or pneumothorax is seen. The heart size, pulmonary vasculature, mediastinum and both aracelis are stable. Impression: No acute radiographic abnormality is seen. Electronically signed by: George Newell MD (04/04/2019 2:57 PM) [id number]
[2019-04-04 15:16] LABS: CALCIUM 9.3 mg/dL (8.5-10.1); CREATININE 0.9 mg/dL (0.7-1.3); GFR 97.8; POTASSIUM 3.6 mmol/L (3.5-5.1)
[2019-04-04 15:22] LABS: ALBUMIN 4.1 g/dL (3.4-5.0); ALBUMIN/GLOBULIN RATIO 1.2 (1.0-1.7); TOTAL BILIRUBIN 0.3 mg/dL (0.2-1.0); TOTAL PROTEIN 7.5 g/dL (6.4-8.2)
[2019-04-04 15:39] LABS: INFLUENZA A PATIENT NEGATIVE (NEGATIVE); INFLUENZA B PATIENT NEGATIVE (NEGATIVE)
[2019-04-04 16:30] VITALS: BP 163/97
[2019-04-04] MEDS ORDERED: BENZ100C PO (17:09)
[2019-04-04] MEDS ORDERED: HYDR25TA PO (17:09)
== END 2019-04-04 17:20 | disposition home or self-care (01) ==
LOC: ER 13:00
DX: R06.02 Shortness of breath (principal); R41.82 Altered mental status, unspecified; R05 Cough; R68.2 Dry mouth, unspecified; I10 Essential (primary) hypertension; E03.9 Hypothyroidism, unspecified; F17.210 Nicotine dependence, cigarettes, uncomplicated; Z88.1 Allergy status to other antibiotic agents
CPT/HCPCS: 36415; 70450; 71046; 80053; 80307; 81001; 82962; 83880; 84484; 85025; 85610; 87804; 93005; 96360; 99285; J7030